=== PATIENT | male | born 1955 | race Caucasian/White ===

== ENCOUNTER 2024-08-18 10:25 | Outpatient (AMB) | payer MEDICARE, SELFPAY ==
--- NOTE | 2024-08-18 10:33 | MHC.PC.OV ---
Vital Signs 08/18/24 10:37 08/18/24 10:41 Height 5 ft 2.6 in Weight 97 lb 6 oz BMI 17.5 BP 124/76 Blood Pressure Location Lt brachial Position Sitting Pulse 44 L 63 Pulse Source Pulse Oximeter Palpation Temp 96.8 F Temp Source Skin Pulse Oximetry (%) 94 Oxygen Delivery Method Room Air Intake Visit Reasons: establish care, MED review Intake Note: Patient is a new patient here to establish care for enlarged heart. Transferring care from [facility]. Medical records have not been requested and have not received. Financial Compliance Examiner Required: No [employer]: Present Accompanied by: Daughter Allergies Sulfa (Sulfonamide Antibiotics) [SULFA (SULFONAMIDE ANTIBIOTICS)] Allergy (Intermediate, Verified 08/18/24 22:52) RASH codeine [CODEINE] Adverse Reaction (Mild, Verified 08/18/24 22:52) Vomiting Medication List - Last Reconciled 08/18/24 by EL Ramos No Known Home Meds Tobacco use date assessed: 08/18/24 Fall risk assessment: No Falls in past year Last assessed Fall Risk: 08/18/24 Dental Screening Dental Screen Date: 08/18/24 Did you have a dental visit in the last 12 months?: No Did you have a dental problem in the last 6 months where you did not have access to dental care?: No Was dental information given to patient?: No HPI establish care, MED review HPI Details Previous PCP: Cannot remember the name Last visit: years ago Last PE: years ago Specialist:n/a OBGYN:n/a Past medical history: cardiomegaly, kidney stones frequency-but none in a while Medications: rescue inhaler, Family HX: father prostate ca, DM 2 and HTN, passed at 95 y/o, Mother with Alzheimer lewy body dementia, sister had skin ca. Problem: The patient is a 69-year-old male who was presenting to establish care Patient reports that he was told that he had an enlarged heart at [facility] After going in for pneumonia and massive diarrhea. He reports that at the time his WBC was 1.6 or 1.9 in his potassium was low as well Reports that there was concern off him having possible emphysema vs COPD Reports that he has smoked for 50 years 1 pack a day but stopped smoking after being discharged from the hospital Reports that he currently has a visiting nurse that comes in and check on his breathing Patient reports that he was prescribed an rescue inhaler but he does not need it He reports mild dizziness intermittently. The patient reports that he does not like water in drinks mostly coffee He denies alcohol use Heart rate noted to be irregular. EKG completed that showed sinus arrhythmias [facility] Surgical History History of hernia surgery Social History Housing: House Alcohol intake: never Patient Tobacco Use Status: Former Tobacco user e-Cigarette/Vaping Use: Never Used Second Hand Smoke Exposure: Yes service: No Current occupational status: retired Cognitive needs: No Hearing needs: No Vision needs: Yes (Glasses) Questionnaire PHQ-9 Over the last 2 weeks, how often have you been bothered by any of the following problems? 1. Little interest or pleasure in doing things: not at all 2. Feeling down, depressed, or hopeless: not at all 3. Trouble falling or staying asleep, or sleeping too much: not at all 4. Feeling tired or having little energy: not at all 5. Poor appetite or overeating: not at all 6. Feeling bad about yourself - or that you are a failure or have let yourself or your family down: not at all 7. Trouble concentrating on things, such as reading the newspaper or watching television: not at all 8. Moving or speaking so slowly that other people could have noticed. Or the opposite - being so fidgety or restless that you have been moving around a lot more than usual: not at all 9. Thoughts that you would be better off or of hurting yourself in some way: not at all Total score: 0 Depression Screening Interpretation: Negative Depression Screening Done: Yes 81801 - PHQ-9 Billing: Yes Source: Developed by Drs. Floyd Wan, Marichuy Dee, Bhavin Roca and colleagues, with an educational irene from [employer] Thrive Questionnaire Date Thrive assessed: 08/18/24 I am a: Patient What is your living situation today?: I have a steady place to live Within the past 12 months, did the food you bought not last and you didn't have the money to get more?: Often true Within the past 12 months, did you worry whether your food would run out before you got money to buy more?: Often true Do you have trouble paying for medicines?: No Do you have trouble getting transportation to medical appointments?: No Do you have trouble paying your heating and electricity bill?: No Do you have trouble taking care of your child, family member or friend?: No Do you have trouble with day-to-day activities such as bathing, preparing meals, shopping, managing finances, etc.?: No Are you currently unemployed and looking for a job?: No Are you interested in more education?: No Please select the resources that you would like help with: None Currently or been in a relationship where the following occur: I choose not to answer THRIVE Score: 2 AUDIT C Alcohol Use Questionnaire (AUDIT-C) 1. How often do you have a drink containing alcohol?: Never Total Score: 0 Score Reviewed/Action Taken: Yes MATEO-7 AMB Questionnaire MATEO-7 Date MATEO - 7 assessed: 08/18/24 Feeling nervous, anxious, or on edge: 0 = Not at all Not being able to stop or control worryin = Not at all Worrying too much about different things: 0 = Not at all Trouble relaxin = Not at all Being so restless that it is hard to sit still: 0 = Not at all Becoming easily annoyed or irritable: 0 = Not at all Feeling afraid as if something awful might happen: 0 = Not at all Total MATEO-7 score (0-4 normal; 5-9 mild; 10-14 moderate; 15-21 severe): 0 Source: Developed by Drs. Floyd Wan, Marichuy Dee, Bhavin Roca and colleagues, with an educational irene from [employer] MATEO-7 Assessment Billing MATEO-7 Assessment Tool: MATEO-7 Assessment 07501 Review of Systems Const Details: Denies chills, Denies fatigue, Denies fever(s), Denies headache(s) and Denies weakness HEENT Denies change in vision, intermittent mild dizziness, Denies headache(s), Denies hearing loss, Denies nasal congestion, Denies sinus pain, Denies sinus pressure and Denies sore throat Card Denies chest pain, Denies lightheadedness, Denies dyspnea and Denies other (palpitations) Resp + recurrent cough, Denies dyspnea and Denies wheezing GI Denies abdominal pain, Denies melena, Denies hematochezia, Denies change in bowel habits, Denies dyspepsia and Denies nausea Denies hematuria and Denies dysuria Musc Denies abnormal gait, Denies myalgias, Denies arthralgias, Denies numbness and Denies tingling Skin/Breast Denies rash, Denies unusual bruising and Denies wounds Neuro Denies abnormal gait, Denies headache(s), Denies memory loss, Denies numbness, Denies Sensory deficit (Neuro), Denies tingling and Denies weakness Psych Denies anxiety, Denies depression and Denies memory loss Endo Denies cold intolerance, Denies fatigue, Denies heat intolerance, Denies polydipsia and Denies polyuria Kervin/Lymph Denies easy bleeding and Denies easy bruising Aller/Immun Denies wheezing Physical exam (Primary Care) Vital Signs: Last Vital Signs Temp 96.8 F 08/18/24 10:37 Pulse 63 08/18/24 10:41 BP 124/76 08/18/24 10:37 Pulse Ox 94 08/18/24 10:37 Oxygen Delivery Method Room Air 08/18/24 10:37 BMI result Body Mass Index 17.5 Tobacco/Smoking Status: Tobacco use Status Tobacco use date assessed 08/18/24 08/18/24 10:46 Patient Tobacco Use Status Former Tobacco user 08/18/24 10:46 e-Cigarette/Vaping Use Never Used 08/18/24 10:46 PHQ-9: PHQ-9 Score PHQ-9: Total score 0 08/18/24 23:30 Depression Screening Interpretation: Negative Thrive Assessment: Date of Thrive Assessment Date Thrive assessed 08/18/24 08/18/24 10:34 Currently or been in a relationship where the following occur: I choose not to answer Const Other: General: no acute distress, well developed, alert and awake Nutritional Appearance: well nourished Orientation/consciousness: patient oriented x3 HENMT Head: Yes normocephalic and Yes atraumatic Ears: hearing grossly normal bilaterally and TM's normal bilaterally General nose exam: Normal external nose present and Normal nares present Mouth: Normal oral and palatal mucosa present and moist mucous membranes Teeth and gingiva: dentition normal Throat: Yes oropharynx normal Eyes Pupils: Equal, round and reactive pupils present and Pupil accommodation reflex normal EOM: EOMs intact bilaterally Neck Neck: Yes normal visual inspection, Yes no lymphadenopathy and Yes trachea midline Thyroid: Thyroid normal Carotids: no bruits Lymphatic: no lymphadenopathy noted Chest Chest palpation & inspection: normal inspection of the chest Resp Effort & Inspection: normal respiratory effort Auscultation: Inspiratory expiratory wheezing throughout bilaterally Cardio Rate: regular rate Rhythm: Irregular rhythm Heart sounds: S1 normal heart sound present, S2 normal heart sound present, no gallops, no murmurs and no rubs GI Palpation (GI): No Abdominal aortic bruit present, Soft to palpation, nontender, No hepatosplenomegaly present and No Rebound tenderness present Auscultation: normal bowel sounds General: Yes no CVA tenderness Back/Spine/Pelvis Back: no CVA tenderness Cervical Spine: cervical ROM normal and No Cervical spine tenderness Thoracic/Lumbar Spine: thoraco-lumbar ROM normal, No pain with thoraco-lumbar ROM, No thoracic spinal tenderness and No lumbar spinal tenderness Skin General: warm and dry. Normal skin color. Normal skin turgor Lesions: no lesions Nails: normal Neuro General: patient oriented x3, gait normal Cranial nerves: Yes Equal, round and reactive pupils present Cognition (Neuro): normal cognition Gait exam (Neuro): Normal gait present Extrem General: Yes normal to inspection, No edema and No calf tenderness Psych Appearance: grossly normal Affect: normal affect Attitude: cooperative Thought process: Normal thought process present Office Procedures Flu Questionnaire Does the patient have a severe egg allergy?: No Does the patient have severe life threatening allergies?: No Does the patient have a fever or illness today?: No Has the patient ever had Guillain-Basin Syndrome?: No Has the patient ever had any past reaction to a flu shot?: No Immunizations Fluarix Triv [id number] (PF) 45 mcg (15 mcg x 3)/0.5 mL IM syringe Performing Provider: EL Ramos [facility] Administered by: Margareth Pradhan LPN on 08/18/24 10:59 Dose Route Admin Location Dispensed Lot Number Expiration Date [facility] [employer] 0.5 mL IM Right Deltoid 0.5 mL [id number] 01/18/25 [id number] [employer] VIS Given Date VIS Provided VIS Publication Date 08/18/24 Single Vaccine 21 Eligibility Eligibility Date Funding Source Not [facility] Eligible 08/18/24 Private Coding Level of Care Code New Pt Level 4 (25382) Diagnoses Irregular heart rhythm I49.9 Cardiomegaly I51.7 Pulmonary emphysema, unspecified emphysema type J43.9 Emphysema type: unspecified Chronic obstructive pulmonary disease, unspecified COPD type J44.9 COPD type: unspecified COPD Cough, unspecified type R05.9 Cough type: unspecified Additional Codes MATEO-7 Assessment Billing - MATEO-7 Assessment Tool: MATEO-7 Assessment 03693 ([id number]) PHQ-9 - 74539 - PHQ-9 Billing: Yes ([id number]) Time Spent (min) 35 Assessment & Plan Assessment & Plan (1) Irregular heart rhythm: Code(s): I49.9 - Cardiac arrhythmia, unspecified Category: Medical Plan: Irregular heart rhythm palpated and EKG was done, which showed sinus arrhythmia Labs ordered for patient to do it as soon as possible (2) Cardiomegaly: Code(s): I51.7 - Cardiomegaly Category: Medical Plan: Patient reported that he was told that he had cardiomegaly at [facility] The patient verbalized that this might be normal for him because his father had cardiomegaly will request the patient discharge summary to evaluate (3) Emphysema lung: Code(s): J43.9 - Emphysema, unspecified Category: Medical Qualifiers: Emphysema type: unspecified Qualified Code(s): J43.9 - Emphysema, unspecified Plan: Unclear information: the patient was not sure, but he thought there was an concern about him having emphysema vs COPD He was send home with a rescue inhaler that he reports that he did not need so he has not been using it. The patient was noted to have inspiratory wheezes throughout the lung field without any dyspnea on exam The patient was encouraged to use his inhaler (4) COPD (chronic obstructive pulmonary disease): Code(s): J44.9 - Chronic obstructive pulmonary disease, unspecified Category: Medical Qualifiers: COPD type: unspecified COPD Qualified Code(s): J44.9 - Chronic obstructive pulmonary disease, unspecified Plan: same as above (5) Cough: Code(s): R05.9 - Cough, unspecified Category: Medical Qualifiers: Cough type: unspecified Qualified Code(s): R05.9 - Cough, unspecified Plan: The patient reports that he had this cough since leaving the hospital reports that he feels like he needs to cough something up but nothing is coming up Mucinex 600mg bid ordered Encouraged the patient to increased his fluids intake Plan The patient has not had a physical for years. Will order labs and schedule the patient to return for physical Orders: Orders Complete Blood Count Auto Diff 08/19/24 I49.9 - Cardiac arrhythmia, unspecified, Z00.00 - Encounter for general adult medical examination without abnormal findings Vitamin D 25-OH Total 08/19/24 I49.9 - Cardiac arrhythmia, unspecified, Z00.00 - Encounter for general adult medical examination without abnormal findings Glucose Fasting 08/19/24 I49.9 - Cardiac arrhythmia, unspecified, Z00.00 - Encounter for general adult medical examination without abnormal findings PSA,Total (Free>4and<10) 08/19/24 I49.9 - Cardiac arrhythmia, unspecified, Z00.00 - Encounter for general adult medical examination without abnormal findings Influenza [id number] Immunization 08/18/24 Z23 - Encounter for immunization Comprehensive [place]. Panel Fast 08/19/24 I49.9 - Cardiac arrhythmia, unspecified, Z00.00 - Encounter for general adult medical examination without abnormal findings Lipid Panel 08/19/24 I49.9 - Cardiac arrhythmia, unspecified, Z00.00 - Encounter for general adult medical examination without abnormal findings UA CC w/rflx Micro + Cult 08/19/24 I49.9 - Cardiac arrhythmia, unspecified, Z00.00 - Encounter for general adult medical examination without abnormal findings TSH reflex Free T4 08/19/24 I49.9 - Cardiac arrhythmia, unspecified, Z00.00 - Encounter for general adult medical examination without abnormal findings Medications: New guaifenesin ER (Mucinex) 600 mg PO BID 60 tabs 0RF
[2024-08-18 10:37] VITALS: BP 124/76; PULSE 44; TEMP 36; O2SAT 94; BMI 17.5
[2024-08-18 10:41] VITALS: PULSE 63
--- OUTSIDE RECORDS SUMMARY | 2024-08-18 11:20 | XMS_ITS | Encounter Summary ---
Author Organization [facility] Address [address] [place] [address] Care Team Providers Care Tie Layer Name Role Phone Marek Sullivan MD Primary Care Provider + [phone] Reason for Visit * Reason Comments Shortness of Breath Sob increasing over few days * Auth/Cert (Routine) Specialty Diagnoses / Procedures Referred By Contac t Referred To Contact Diagnoses SOB (shortness of breath) Procedures [id number] Pino Apple MD [address] [place] [address] [facility] Emergency [address] [place] [address] Referral ID Status Reason Start Date Expiration Date Visits Re quested Visits Authorized [id number] 1 1 Encounter Details Date Type Department Care Team (Latest Contact Info) Description 07/18/2024 8:24 PM EST - 07/21/2024 4:09 PM [facility] Hospital Encounter [facility] [address] [place] [address] Karyna Garza DO [address] [place] [address] Pino Apple MD [address] [place] [id number] Georgina Figueredo MD [address] [place] [phone] Juan A Garay MD [address] [place] [address], [place] [id number] Robin Soto MD [address] [place] [address] Dyspnea, unspecified type (Primary Dx); Pneumonia of right middle lobe due to infectious organism; Hypokalemia Discharge Disposition: Home or Self Care Social History Tobacco Use Types Packs/Day Years Used Date Smoking Tobacco: Every Day Cigarettes Smokeless Tobacco: Never Tobacco Cessation:Ready to Q uit: Not Asked; Counseling Given: Not Answered Interpersonal Safety Answer Date Record ed Physical Abuse 07/19/2024 Verbal Abuse 07/19/2024 Sex and Gender Information Value Date Recorded Sex Assigned at Male 07/18/2024 9:55 PM EST Gender Identity Male 07/18/2024 9:55 PM EST Sexual Orientation Straight 07/18/2024 9: 55 PM EST Job Start Date Occupation Industry Not on file Not on file Not on file documented as of this encounter Last Filed Vital Signs Vital Sign Reading Time Taken Comments Blood Pressure 121/68 07/21/2024 3:09 PM EST Pulse 96 07/21/2024 3:09 PM EST Temperature 37.2 ??C (98.9 ??F) 07/21/2024 3 :09 PM EST Respiratory Rate 17 07/21/2024 3:09 PM EST Oxygen Saturation 95% 07/21/2024 3:0 9 PM EST Inhaled Oxygen Concentration - - Weight 44.5 kg (98 lb) 07/20/2024 3:28 PM EST per epic record Height 162.6 cm (5' 4 ) 07/19/2024 8:52 PM EST Body Mass Index 16.82 07/19/2024 8:52 PM EST documented in this encounter Medications at Time of Discharge Medication Sig Dispensed Refills Start Date End Date dextromethorphan-guaiF ENesin (ROBITUSSIN-DM) 10-100 mg/5 mL syrup Take 10 mL by mouth every 4 (four) hours if needed for cough. 240 mL 07/21/2024 nicotine (NICODERM CQ) 7 mg/[address] 1 patch on the skin 1 (one) time each day for 14 days. 14 each 07/22/2024 albuterol HFA (ProAir HFA) 90 mcg/actuation inhaler Inhale 2 puffs by mouth every 4 (four) hours if needed for wheezing or shortness of breath. 8.5 g 07/21/2024 07/21/2025 doxycycline (VIBRAMYCIN) 100 mg capsule Take 1 capsule (100 mg total) by mouth 2 (two) times a day for 5 days. Take with at least 8 ounces (large glass) of water, do not lie down for 30 minutes after 10 each 07/21/2024 07/26/2024 levoFLOXacin (LEVAQUIN) 750 mg tablet Take 1 tablet (750 mg total) by mouth 1 (one) time each day for 5 days. 5 each 07/21/2024 07/26/2024 potassium chloride (KLOR-CON M20) 20 mEq CR tablet Take 2 tablets (40 mEq total) by mouth 1 (one) time each day for 5 days. Tablet may be swallowed whole (do not crush/chew/suck on) OR broken in half and each half swallowed separately OR dissolved (whole tablet) in ~4 ounces of water (allow ~2 minutes to dissolve, stir well and administer immediately). 10 tablet 07/21/2024 07/26/2024 documented as of this encounter Ordered Prescriptions Prescription Sig Dispensed Refills Start Date End Da te albuterol HFA (ProAir HFA) 90 mcg/actuation inhaler Inhale 2 puffs by mouth every 4 (four) hours if needed for wheezing or shortness of breath. 8.5 g 07/21/2024 07/21/2025 nicotine (NICODERM CQ) 7 mg/[address] 1 patch on the skin 1 (one) time each day for 14 days. 14 each 07/22/2024 dextromethorphan-guaiFE Nesin (ROBITUSSIN-DM) 10-100 mg/5 mL syrup Take 10 mL by mouth every 4 (four) hours if needed for cough. 240 mL 07/21/2024 potassium chloride (KLOR-CON M20) 20 mEq CR tablet Take 2 tablets (40 mEq total) by mouth 1 (one) time each day for 5 days. Tablet may be swallowed whole (do not crush/chew/suck on) OR broken in half and each half swallowed separately OR dissolved (whole tablet) in ~4 ounces of water (allow ~2 minutes to dissolve, stir well and administer immediately). 10 tablet 07/21/2024 07/26/2024 levoFLOXacin (LEVAQUIN) 750 mg tablet Take 1 tablet (750 mg total) by mouth 1 (one) time each day for 5 days. 5 each 07/21/2024 07/26/2024 doxycycline (VIBRAMYCIN) 100 mg capsule Take 1 capsule (100 mg total) by mouth 2 (two) times a day for 5 days. Take with at least 8 ounces (large glass) of water, do not lie down for 30 minutes after 10 each 07/21/2024 07/26/2024 documented in this encounter Discharge Disposition Disposition Code Departure Means Destination Comment s Home or Self Care Car documented in this encounter Progress Notes * Laura Ghotra RN - 07/21/2024 4:05 PM EST Discharge instructions reviewed and patient verbalizes understanding. * Elana Rodrigues - 07/21/2024 2:23 PM EST Patient ambulated briskley without increased WOB and/or SOB. Patient started out on room air at rest with HR 99, SPO2 95%. Patient ambulated a total of 80ft without assistance for 12 min. After 5 minambulating HR 117, SPO2 90%. After 8 min ambulating HR 118, SPO2 88%,. After 12 min ambulating HR123, SPO2 89%. Patient does not qualify for home supplemental oxygen. * Adelina Diana RN - 07/21/2024 4:52 AM EST Problem: Physical Regulation:Infection Management Goal: Signs and symptoms of infection will decrease Outcome: Progressing Goal: Complications related to the disease process, condition or treatment will be avoided or minimized Outcome: Progressing Goal: Diagnostic test results will improve Outcome: Progressing Identify possible barriers to meeting goals/advancing plan of care: IV ABX Stability of the patient: Moderately Stable - Low risk of patient condition declining or worsening End of Shift Summary: Patient alert and oriented overnight, no complaints of pain or discomforts. SB to the bathroom d/t length of oxygen tubing and IV pole. States he's breathing better and is able to get the congestion up. * Laura Ghotra RN - 07/20/2024 3:49 PM EST Problem: Physical Regulation:Infection Management Goal: Signs and symptoms of infection will decrease Outcome: Progressing Goal: Complications related to the disease process, condition or treatment will be avoided or minimized Outcome: Progressing Goal: Diagnostic test results will improve Outcome: Progressing Goals: wean supplemental o2 need Identify possible barriers to meeting goals/advancing plan of care: infection Stability of the patient: Moderately Stable - Low risk of patient condition declining or worsening End of Shift Summary: Patient alert oriented vss continues on iv abx for aspirational PNA family invisiting today. * Karissa Judge RN - 07/20/2024 3:25 PM EST 07/20/24 1524 Initial Transition Plan Initial Transition Plan Home Health Care Discharge Planning Living Arrangements Spouse/significant other Type of Residence Private residence ([facility]) Support Systems Spouse/significant other;Children Medication Coverage Has Med Coverage Under Insurance Plan Yes Medication Affordability No concerns related to payment for meds Anticipated Discharge Needs Home Health RN Informed Choice Informed Choice Given? Yes I met with patient, spouse and daughter Marcus with regards to d/c planning. Patient states that he has been independent with care prior to admit. Patient does not use any assistive devices to ambulate. Patient still drives. Patient would like VNA upon discharge. Referrals sent. * Adelina Diana RN - 07/20/2024 4:01 AM EST Problem: Physical Regulation:Infection Management Goal: Signs and symptoms of infection will decrease Outcome: Progressing Goal: Complications related to the disease process, condition or treatment will be avoided or minimized Outcome: Progressing Goal: Diagnostic test results will improve Outcome: Progressing Identify possible barriers to meeting goals/advancing plan of care: IV ABX Stability of the patient: Moderately Stable - Low risk of patient condition declining or worsening End of Shift Summary: Patient alert and oriented. VSS, Neutropenic precautions for WBC 1.5, was Droplet precautions for Mycoplasma pneumo but PCR came back Negative. SB assist to bathroom, steady on feet. Daughter will be coming in to discuss results of CT scan. Daughter called last evening and requested her be first to be notified because mother (pt ) has history of TBI and she has a hard time remembering her own medical information. * Randi Leger RN - 07/19/2024 7:15 PM EST ED RN HANDOFF (All Chinchilla Below Must Be Completed) Reason/Diagnosis for Admission: Type of Admission: [x] Medsurg, [] Telemetry Already in a Hospital Bed: [x] Yes / [] No Room Considerations/Precautions (ex: fever, diarrhea, or any infectious concerns): [x] Yes / [] No *Neutropenic precautions Putty Mixer And Applier: [] Yes / [x] No If YES, Cardiac Rhythm: [] NSR, [] SB, [] ST, [] A-FIB, [] A-Flutter, [] Pacemaker, [] 1st Degree HB, [] 2nd Degree HB, [] 3rd Degree HB Reason for Putty Mixer And Applier: VS: Visit Vitals BP 98/52 (BP Location: Left arm, Patient Position: Lying) Pulse 98 Temp 37.7 ??C (99.9 ??F) Resp (!) 28 Ht 1.626 m (64 ) Wt (!) 45.4 kg (100 lb) SpO2 96% BMI 17.16 kg/m?? Smoking Status Every Day BSA 1.46 m?? Current Mental Status: A/O x [x]4, []3, []2, []1 Current Ambulation Status: IV Access: [x] Yes / [] No Field IV present: [] Yes / [x] No Hx of Violence: [] Yes / [x] No / [] Unknown Fall Risk:[] Yes / [] No Yellow Bracelet Applied [] Yes / [] No Yellow Socks Applied [] Yes / [] No Patient Belongings inventoried and BL completed: [x] Yes / [] No Patient belongings stored in the security closet: [] Yes (If Yes please supply Security bag #): [x] No Patient Medications stored in Pharmacy: [] Yes (If Yes please supply Medication Security bag #): [x] No ED Summary of Care: SOB and pneumonia in right lung/ N/V/D for 1 week. 94% 4l nc. Ambulatory with one assist to bedside commode. Submitted by and Phone Extension: Randi Leger RN * Randi Leger RN - 07/19/2024 3:04 PM EST Pt ambulatory to bedside commode to move bowels. Some diarrhea noted. Pt then placed in hospital bed for comfort. Callbell within reach * Randi Leger RN - 07/19/2024 12:36 PM EST Pt reports increasing SOB. Neb treatment started per order. * BRAD Thomas - 07/19/2024 11:23 AM EST Images from the original note were not included. AMANDEEP PROGRESS NOTE Date: 07/19/2024 Author: BRAD Thomas Patient ID: Jai Martinez is a 68 y.o. male : 1955 MR#: [id number] SUBJECTIVE Subjective Patient reports that he started to feel ill about a week ago. He reports since time of admission overnight his chest pain has improved. He is coughing with phlegm production but does not know what color it is. He denies any recent hemoptysis or weight loss. He denies any fevers, chills, night sweats. Appetite is poor. He has experienced recent diarrhea. He denies dysuria or abdominal pain. Patient tells me he smokes 5 unfiltered cigarettes on a daily basis but used to smoke multiple packs per day. 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 Patient does not typically seek medical care. Patient has been in respiratory distress overnight with respiratory rates as high as the 30s. Allergies Sulfa (sulfonamide antibiotics) Current Medications: enoxaparin, 40 mg, subcutaneous, Daily levoFLOXacin, 750 mg, intravenous, q48h sodium chloride, 75 mL/hr, Last Rate: 75 mL/hr (07/19/24 0856) PRN medications: acetaminophen, dextromethorphan-guaiFENesin, ipratropium-albuteroL OBJECTIVE Vitals: 07/19/24 0220 07/19/24 0653 07/19/24 0859 07/19/24 1100 BP: 111/62 117/51 (!) 124/48 BP Location: Right arm Left arm Left arm Patient Position: Sitting Lying Sitting Pulse: (!) 119 110 (!) 114 (!) 114 Resp: 22 24 22 (!) 34 Temp: 37.6 ??C (99.7 ??F) 36.9 ??C (98.5 ??F) 37.7 ??C (99.9 ??F) TempSrc: Oral Oral SpO2: 96% 94% 95% 95% Weight: Height: Physical Exam Constitutional: Appearance: He is cachectic. HENT: Head: Normocephalic and atraumatic. Mouth/Throat: Mouth: Mucous membranes are moist. Eyes: Extraocular Movements: Extraocular movements intact. Conjunctiva/sclera: Conjunctivae normal. Pupils: Pupils are equal, round, and reactive to light. Cardiovascular: Rate and Rhythm: Normal rate and regular rhythm. Pulmonary: Effort: Pulmonary effort is normal. Breath sounds: Normal breath sounds. No wheezing, rhonchi or rales. Comments: Diminished breath sounds Abdominal: General: Bowel sounds are normal. There is no distension. Palpations: Abdomen is soft. There is no mass. Tenderness: There is no abdominal tenderness. There is no rebound. Musculoskeletal: General: Normal range of motion. Cervical back: Normal range of motion. Skin: General: Skin is warm and dry. Neurological: General: No focal deficit present. Mental Status: He is alert and oriented to person, place, and time. Psychiatric: Mood and Affect: Mood normal. Behavior: Behavior is cooperative. LABS HEMATOLOGY Lab Results Component Value Date WBC 1.5 (LL) 07/19/2024 HGB 14.3 07/19/2024 HCT 41.0 (L) 07/19/2024 MCV 93.8 07/19/2024 PLT 173 07/19/2024 CHEMISTRY Lab Results Component Value Date GLUCOSE 61 (L) 07/19/2024 NA 132 (L) 07/19/2024 K 3.3 (L) 07/19/2024 CO2 25 07/19/2024 CL 100 07/19/2024 BUN 21 07/19/2024 CREATININE 0.79 07/19/2024 EGFR 97 07/19/2024 CALCIUM 8.8 07/19/2024 MG 1.6 (L) 07/19/2024 ANIONGAP 7 07/19/2024 Imaging: XR Chest 1 View Narrative: EXAMINATION: Chest portable upright 2120 hours. CLINICAL INDICATION: SOB. COMPARISON: None. FINDINGS: Lungs are hyperexpanded with dense consolidation right midlung. The left lung is clear. No gross bony abnormality seen. Impression: Right midlung consolidation. -------- FINAL REPORT -------- Dictated By: Barry Arellano Dictated Date: 07/19/2024 07:23 ET Assigned Physician: Barry Arellano Reviewed and Electronically Signed By: Barry Arellano Signed Date: 07/19/2024 07:24 ET Workstation ID: [id number] Transcribed By: Self Edit Transcribed Date: 07/19/2024 07:23 ET ASSESSMENT & PLAN This is a 68-year-old gentleman with a history of tobacco dependence who has not seen a primary care physician in quite some time admitted with acute respiratory distress secondary to right sided community-acquired pneumonia. Respiratory distress: Patient quite tachypneic with respiratory rates in the 30s overnight periods with supplemental oxygen and treatment patient appears more comfortable this morning. Clear if the patient is having acutehypoxic respiratory failure as no low sats are documented however he is on 4 L of nasal cannula. Concerning is patient's overall cachectic appearance and longstanding history of tobacco dependence. Iwill obtain a dry CT of the chest to further evaluate the right lung consolidation. Adjust antibiotics to avoid fluoroquinolones. Initiate Unasyn and doxycycline for now as there is also a question of aspiration due to the patient having significant vomiting prior to admission. Await mycoplasma antibodies. Full viral swab was negative. If patient can produce a sputum sample we will send this for culture as well. Tobacco dependence: NRT offered patient declines. Electrolyte abnormalities: Patient found to be hyponatremic and hypokalemic today also hypoglycemic. Suspect this is due to recent diarrhea/GI losses and poor oral intake in addition to the thoracic illness. Replenish potassium orally, low-flow IV fluids and follow electrolytes. Patient encouraged to try to eat something to improve the blood sugar. Leukopenia: Suspect this is due to the acute illness. Especially since Saenz bodies are present. Continue to trend. DAILY CARE CHECKLIST Length of Stay: VTE Prophylaxis: Lovenox Resuscitation: Full Code - Default PCP: Marek Sullivan MD Disposition/patient need hospital stay because : Acute respiratory distress due to community-acquired pneumonia Health care proxy with phone number : 45 minutes spent reviewing the medical record, evaluating the patient, coordinating care with ICC, RN and attending physician to facilitate today's plan in speaking to the patient's daughter at bedside. Associated attestation - Juan A Garay MD - 07/19/2024 3:22 PM EST This is a split/shared visit with BRAD Thomas. I personally performed the medical decision making (MDM) for the care of this patient on 07/19/24 as documented below Patient was discussed with advanced practitioner . I personally saw and examined the patient bedside. Chart was reviewed by me personally including relevant history, updates, labs, imaging. Agree with the documentation and plan as above except mentioned below. Patient who is chronic smoker presented to the hospital with shortness of breath, some diarrhea andgeneralized weakness. -Chest x-ray shows large right-sided consolidation. Currently treated with IV antibiotic Unasyn anddoxycycline with concern of aspiration (daughter who is RN here reported that patient had multiple episodes of vomiting around [place] and suspect aspiration). -With underlying risk factors and clinical picture CT scan chest ordered to look for possible malignancy. Juan A Garay MD 07/19/24 3:22 PM EST * Aleshia Jarvis RN - 07/19/2024 5:47 AM EST patient got up to use bedside commode with gear technician, RN entered room to answer call eddy - pt appeared short of breath upon exertion. gear technician assisted pt back into bed. RN took pt vitals at this time O2 sat 90%, titrated O2 to 3.5L. pt O2 improved to 95%. Pt HR in 120s. After a few minutes pt breathing appeared less labored pt stated he felt better. Aleshia Jarvis RN 07/19/24 4515 * Aleshia Jarvis RN - 07/19/2024 4:01 AM EST Contacts pt daughter marcus [phone] Ney [phone] Lisa [phone] Aleshia Jarvis RN 07/19/24 7048 * Lucinda Candelario RN - 07/18/2024 11:59 PM EST Pt denies pain at this time. Pt offered food and fluids. Pt does not want food at this time so given water. Pt on continuous pulse oximetry. SpO2 99% on 2L. Call light in reach. Plan of care ongoing. * Robbie Nevarez RN - 07/18/2024 8:11 PM EST Pt presents for worsening shortness of breath over last few days, cough, pain to right chest when he coughs. Pt appears pale, is ambulatory, a/ox3 * Karyna Garza DO - 07/18/2024 8:07 PM EST Emergency Medicine Note Patient Name: Jai Martinez Initial Evaluation: 07/18/2024 : 1955 Patient's PCP: No primary care provider on file. Emergency Physician: Karyna Garza DO History of Present Illness Chief Complaint: Chief Complaint Patient presents with Shortness of Breath Sob increasing over few days HPI: This a 68-year-old male presented hospital today for evaluation of shortness of breath from past couple days. Patient is complain of right-sided chest pain when he coughs. Patient has episode diarrhea as well. Denies any dark stool denies hematemesis hematemesis. Patient does not have any longhistory however he does smoke tobacco. Patient does complain of some nausea as well. Denies any fever. No cardiac history as in the past. ROS: I have performed a ROS with the pertinent positives and negatives documented in the history ofpresent illness. Previous History History reviewed. No pertinent past medical history. History reviewed. No pertinent surgical history. Social History Tobacco Use Smoking status: Every Day Types: Cigarettes Smokeless tobacco: Never No family history on file. is allergic to sulfa (sulfonamide antibiotics). No current facility-administered medications on file prior to encounter. No current outpatient medications on file prior to encounter. Physical Exam ED Triage Vitals [07/18/242013] Temp Heart Rate Resp BP 36.7 ??C (98.1 ??F) 96 20 -- SpO2 Temp src Heart Rate Source Patient Position 93 % -- -- -- BP Location FiO2 (%) -- -- General: Pleasant, no distress, interacting appropriately Head: Normacephalic, atraumatic ENT: oral mucosa moist, neck supple, no tracheal deviation Cardiovascular: Tachycardic rate, regular rhythm, no murmurs, rubbing, gallops Respiratory: Patient has rales on the right side of his lungs compared to the left side. No wheezing. Gastrointestinal: Soft, non distended, non tender, non guarding Extremities: No limb pain or swelling, no calf tenderness Neurological: Awake and alert, no facial droop noted Skin: Warm and dry Psychiatric: Appropriate mood and thoughts Results Labs Reviewed BASIC METABOLIC PANEL - Abnormal Result Value Sodium 130 (*) Potassium 3.9 Chloride 98 CO2 23 Anion Gap 9 Glucose 84 BUN 26 (*) Creatinine 1.06 eGFR 77 BUN/Creatinine Ratio 24.5 Calcium 8.6 B-TYPE NATRIURETIC PEPTIDE - Abnormal BNP 320 (*) CBC WITH AUTO DIFFERENTIAL - Abnormal WBC 2.5 (*) RBC 4.50 Hemoglobin 14.8 Hematocrit 42.5 MCV 93.6 MCH 32.6 (*) MCHC 34.8 RDW 12.6 Platelets 185 MPV 9.6 NRBC 0.0 NRBC Absolute 0.00 MANUAL DIFFERENTIAL - INSTRUMENT DIFFERENTIAL - Abnormal Neutrophils % 16.0 Bands % 26.0 Lymphocytes % 26.0 Reactive Lymphocyte 1.00 Monocytes % 3.0 Eosinophils % 0.0 Basophils % 0.0 Metamyelocytes % 25.0 (*) Myelocytes % 4.0 (*) Neutrophils Absolute Manual 0.40 (*) Bands Absolute Manual 0.65 (*) Lymphocytes Absolute 0.65 (*) Reactive Lymph Abs Manual 0.03 (*) Monocytes Absolute Manual 0.08 (*) Eosinophils Absolute Manual 0.00 Basophils Absolute Manual 0.00 Metamyelocytes Absolute Manual 0.63 (*) Myelocytes Absolute Manual 0.10 (*) Rbc Morphology Present (*) Platelet Morphology - WAM See Note (*) Schistocytes Present < 5% (*) Toxic Granules Present Present (*) Vacuolated Neutrophils Present Present (*) Dohle Body Present Present (*) TROPONIN I HIGH SENSITIVITY - Normal High Sensitivity Troponin I 16 Narrative: High levels of biotin in samples may falsely decrease hsTroponin values. Use caution when interpreting hsTroponin results in patients taking biotin who exhibit renal impairment (eGFR <60) or in patients taking more than 20 mg/day of biotin. LEGIONELLA ANTIGEN URINE, EIA CBC AND DIFFERENTIAL Narrative: The following orders were created for panel order CBC and differential. Procedure Abnormality Status --------- ------ CBC auto differential[[id number]] Abnormal Final result Please view results for these tests on the individual orders. TROPONIN I HIGH SENSITIVITY STREPTOCOCCUS PNEUMONIAE ANTIBODIES, IGG, 23 SEROTYPES MYCOPLASMA PNEUMONIAE ANTIBODY IGM Abnormal Labs Reviewed BASIC METABOLIC PANEL - Abnormal; Notable for the following components: Result Value Sodium 130 (*) BUN 26 (*) All other components within normal limits B-TYPE NATRIURETIC PEPTIDE - Abnormal; Notable for the following components: BNP 320 (*) All other components within normal limits CBC WITH AUTO DIFFERENTIAL - Abnormal; Notable for the following components: WBC 2.5 (*) MCH 32.6 (*) All other components within normal limits MANUAL DIFFERENTIAL - INSTRUMENT DIFFERENTIAL - Abnormal; Notable for the following components: Metamyelocytes % 25.0 (*) Myelocytes % 4.0 (*) Neutrophils Absolute Manual 0.40 (*) Bands Absolute Manual 0.65 (*) Lymphocytes Absolute 0.65 (*) Reactive Lymph Abs Manual 0.03 (*) Monocytes Absolute Manual 0.08 (*) Metamyelocytes Absolute Manual 0.63 (*) Myelocytes Absolute Manual 0.10 (*) Rbc Morphology Present (*) Platelet Morphology - WAM See Note (*) Schistocytes Present < 5% (*) Toxic Granules Present Present (*) Vacuolated Neutrophils Present Present (*) Dohle Body Present Present (*) All other components within normal limits XR Chest 1 View (Results Pending) I have discussed the incidental/abnormal imaging and/or lab abnormalities with the patient and haveinstructed them the need for further evaluation and workup with their primary care doctor. I have provided the patient with a paper copy of the abnormality. The laboratory results, imaging results and other diagnostic exam results were reviewed in the EMR. EKG Interpretation Critical Care Time None ? Medical Decision Making Medications acetaminophen (TYLENOL) tablet 650 mg (has no administration in time range) ipratropium-albuteroL (DUONEB) 0.5-2.5 mg/3 mL nebulizer solution 3 mL (3 mL nebulization Given 07/18/242047) sodium chloride 0.9 % bolus 1,000 mL (1,000 mL intravenous New Bag 07/18/242115) cefTRIAXone (ROCEPHIN) 2 g in sterile water 20 mL IV syringe (2 g intravenous Given 07/18/242143) azithromycin (ZITHROMAX) tablet 500 mg (500 mg oral Given 07/18/242142) ED Course as of 07/18/242153 Sat Jul 18, [id number] This a 68-year-old male presented ER today for couple days of shortness of breath with coughing. I suspect patient may have a pneumonia versus fluid or pulmonary edema. Due to this chest pain willobtain a screen EKG troponin be obtained as well. He does not have any chest pain on resting however this chest pain is worsening when he coughs. Patient does appear to be tachypneic on my exam. Patient is on 2 L nasal cannula for supplementation. Will plan to obtain a chest x-ray to evaluate his lungs. Basic lab work clued CBC BMP and BNP will be obtained as well. Will plan to give patient DuoNeb treatment to see if this will help with his shortness of breath. [TC] 2153 Patient does have slight hyponatremia 130, slight elevation in BNP at 320. No elevation in troponin he is asymptomatic of any ACS symptoms no chest pain at rest. Patient does have bands on CBC. Patient chest x-ray did show right middle lobe pneumonia. Ceftriaxone azithromycin to be given to the patient. Patient be admitted to the hospital. [TC] ED Course User Index [TC] Karyna Garza DO Clinical Impressions as of 07/18/242153 Dyspnea, unspecified type Pneumonia of right middle lobe due to infectious organism Procedures Procedures Diagnosis 1. Dyspnea, unspecified type CANCELED: CT Angio Chest wo and/or w Contrast CANCELED: CT Angio Chest wo and/or w Contrast 2. Pneumonia of right middle lobe due to infectious organism Disposition Admit to Inpatient ED Prescriptions None Physician Attestation Karyna Garza DO 07/18/242108 Karyna Garza DO 07/18/242153 documented in this encounter H&P Notes * Pino Apple MD - 07/18/2024 11:03 PM EST Admitting MD: Pino Apple MD PCP: Marek Sullivan MD Code Status: Full Code - Default HPI : Patient is a 68 y.o. male with past medical history of smoking and no other significant past medical history and does not take any medications at home coming into the hospital with chief complaint of cough which she described as dry, fever, chills and shortness of breath. He also had some right-sided chest pain for which she took 2 pills of aspirin at home. Patient's associated complaints include diarrhea. Patient came into the hospital for evaluation. Patient was vitally stable. Laboratory workup was unremarkable except slightly low WBC count and hyponatremia. Patient's chest x-ray showed concerns for pneumonia for which the patient is being admitted to the hospital. Past Medical History: Past Surgical History: History reviewed. No pertinent past medical history. History reviewed. No pertinent surgical history. Family History Social History: No family history on file. Social History Socioeconomic History Marital status: Spouse name: Not on file Number of children: Not on file Years of education: Not on file Highest education level: Not on file Occupational History Not on file Tobacco Use Smoking status: Every Day Types: Cigarettes Smokeless tobacco: Never Substance and Sexual Activity Alcohol use: Not on file Drug use: Not on file Sexual activity: Not on file Other Topics Concern Not on file Social History Narrative Not on file Allergies: Allergies Allergen Reactions Sulfa (Sulfonamide Antibiotics) Medications: No current outpatient medications Review of Systems: Review of Systems A complete 14 point review of symptoms was done and is negative except as mentioned in the note above. Vitals: Vitals: 07/18/242013 Pulse: 96 Resp: 20 Temp: 36.7 ??C (98.1 ??F) SpO2: 93% Physical Exam: Constitutional: General: Not in acute distress. Appearance: Normal appearance. Not ill-appearing. HENT: Head: Normocephalic and atraumatic. Right Ear: External ear normal. Left Ear: External ear normal. Nose: Nose normal. Mouth: Mucous membranes are moist. Pharynx: Oropharynx is clear. Eyes: Extraocular Movements: Extraocular movements intact. Cardiovascular: Rate and Rhythm: Normal rate and regular rhythm. Pulses: Normal pulses. Heart sounds: Normal heart sounds. No murmur heard. No friction rub. No gallop. Pulmonary: Effort: Pulmonary effort is normal. No respiratory distress. Breath sounds: Slightly rrough breath sounds in the right lung. Abdominal: General: Abdomen is flat. There is no distension. Palpations: Abdomen is soft. There is no mass. Tenderness: There is no abdominal tenderness. Musculoskeletal: General: No swelling or deformity. Normal range of motion. Cervical back: Normal range of motion. Right lower leg: No edema. Left lower leg: No edema. Skin: General: Skin is warm and dry. Neurological: General: No focal deficit present. Mental Status: Alert and oriented to person, place, and time. Mental status is at baseline. Psychiatric: Mood and Affect: Mood normal. Behavior: Behavior normal. Labs: Labs Reviewed BASIC METABOLIC PANEL - Abnormal Result Value Sodium 130 (*) Potassium 3.9 Chloride 98 CO2 23 Anion Gap 9 Glucose 84 BUN 26 (*) Creatinine 1.06 eGFR 77 BUN/Creatinine Ratio 24.5 Calcium 8.6 B-TYPE NATRIURETIC PEPTIDE - Abnormal BNP 320 (*) CBC WITH AUTO DIFFERENTIAL - Abnormal WBC 2.5 (*) RBC 4.50 Hemoglobin 14.8 Hematocrit 42.5 MCV 93.6 MCH 32.6 (*) MCHC 34.8 RDW 12.6 Platelets 185 MPV 9.6 NRBC 0.0 NRBC Absolute 0.00 MANUAL DIFFERENTIAL - INSTRUMENT DIFFERENTIAL - Abnormal Neutrophils % 16.0 Bands % 26.0 Lymphocytes % 26.0 Reactive Lymphocyte 1.00 Monocytes % 3.0 Eosinophils % 0.0 Basophils % 0.0 Metamyelocytes % 25.0 (*) Myelocytes % 4.0 (*) Neutrophils Absolute Manual 0.40 (*) Bands Absolute Manual 0.65 (*) Lymphocytes Absolute 0.65 (*) Reactive Lymph Abs Manual 0.03 (*) Monocytes Absolute Manual 0.08 (*) Eosinophils Absolute Manual 0.00 Basophils Absolute Manual 0.00 Metamyelocytes Absolute Manual 0.63 (*) Myelocytes Absolute Manual 0.10 (*) Rbc Morphology Present (*) Platelet Morphology - WAM See Note (*) Schistocytes Present < 5% (*) Toxic Granules Present Present (*) Vacuolated Neutrophils Present Present (*) Dohle Body Present Present (*) TROPONIN I HIGH SENSITIVITY - Normal High Sensitivity Troponin I 16 Narrative: High levels of biotin in samples may falsely decrease hsTroponin values. Use caution when interpreting hsTroponin results in patients taking biotin who exhibit renal impairment (eGFR <60) or in patients taking more than 20 mg/day of biotin. TROPONIN I HIGH SENSITIVITY - Normal High Sensitivity Troponin I 15 Narrative: High levels of biotin in samples may falsely decrease hsTroponin values. Use caution when interpreting hsTroponin results in patients taking biotin who exhibit renal impairment (eGFR <60) or in patients taking more than 20 mg/day of biotin. LEGIONELLA ANTIGEN URINE, EIA CBC AND DIFFERENTIAL Narrative: The following orders were created for panel order CBC and differential. Procedure Abnormality Status --------- ------ CBC auto differential[[id number]] Abnormal Final result Please view results for these tests on the individual orders. Imaging: XR Chest 1 View (Results Pending) Problem List: Patient Active Problem List Diagnosis Date Noted Date Diagnosed SOB (shortness of breath) 07/18/2024 Assessment / Plan: 68-year-old male with past medical history of smoking being admitted to the hospital for right sided community-acquired pneumonia. Considering hyponatremia and diarrhea, appears to be atypical pneumonia. Considering atypical pneumonia, I will check for Legionella, mycoplasma. Will check respiratory panel. Will check strep pneumonia antigen. Will start the patient on levofloxacin for 7 days. DuoNeb for breathing as needed. Robitussin for cough. Tylenol for pain and fever. Regular diet. Check labs tomorrow. Pulse ox and vitals as per routine. Med Rec/Ambulation/BPCI: Medication reconciliation Completed: Yes Source of Medication Reconciliation: Patient Baseline Ambulation Status: no device Ulcer Prophylaxis: None. DVT Prophylaxis: Lovenox. Bowel Regimen: None. Lujan Catheter: None. Diet/Feeding: Regular diet. Analgesia: Tylenol. Telemetry: None. Fluids: None. Additional records from previous providers were reviewed in detail. Case was discussed with ED as well. I spent greater than 80 minutes caring for this patient today with greater than 50% of the timespent in direct [id number] care/counseling/coordination with medical staff services manager, consultants, and reviewingpatient chart. Pino Apple MD [facility] Hospital[facility], 7am-7pm Available thru tiger text After 7pm, please tiger text cross coverage 07/18/2024 11:08 PM EST documented in this encounter Consult Notes * Lotus De La Torre, OSCAR - 07/20/2024 3:35 PM ESTAssociated Order(s): IP CONSULT TO NUTRITION SERVICES 07/20/2024 @ 3:38 PM EST Nutrition Consult Note/Nutrition Assessment Reason for RD Intervention: Assessment Type: RN Consult Reason for Assessment: High MST Score Anthropometrics: Height: 162.6 cm (64 ) Weight: (!) 44.5 kg (98 lb) (per epic record) Weight Method: Actual BMI (Calculated): 16.8 BMI Class: Underweight UBW (lbs): 100 Recent Weight Change: (Pt is not aware of any recent weight change) Current Diet and Supplements: Dietary Orders (From admission, onward) Start Ordered 07/20/24 1500 Dietary nutrition supplements Three times daily (TID); [facility]; Standard Small Volume Continuous Question Answer Comment Frequency Three times daily (TID) Location [facility] Supplements Standard Small Volume 07/20/24 1459 07/18/24 2303 Adult diet [facility]; General; Regular (Order Panel) Diet effective now Question Answer Comment Location [facility] Diet Type (req) General General Diet Regular 07/18/24 2303 History of presenting illness: Patient is a 68 y.o. male admitted 07/18/2024 with SOB (shortness ofbreath). Food/Nutrition History: Self-selected diet(s) followed: Pt consumes peanut butter cups, hamburgers and meat pies, not many vegetables, lots of coffee with milk and a small amount of sugar. Denies food allergies. They previously had food stamps but no longer qualify. PT reports no food security issues but indicates food budget at times is tight. PO declined for 5-7 days prior to admisison, did eat a meat pie on July 15 but did not feel well afterward and intake began to decline then. Pt confirmed height and states usual weight has been 100lbs most of his life. 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 Aspiration suspected. Pt reports he is eating a bit more today. Food preferences reviewed, pt willing to try oral supplements. Potassium and magnesium noted, BG has been low, suspect very limited glycogen stores given BMI and poor oral intake. Nutrition-Related Lab Values: Results from last 7 days Lab Units 07/20/24 1110 07/20/24 0938 07/20/24 0606 07/19/24 0447 SODIUM mmol/L -- -- 135 132* POTASSIUM mmol/L -- -- 3.0* 3.3* MAGNESIUM mg/dL -- -- 1.8* 1.6* CHLORIDE mmol/L -- -- 104 100 CO2 mmol/L -- -- 25 25 BUN mg/dL -- -- 12 21 CREATININE mg/dL -- -- 0.55* 0.79 EGFR mL/min/1.73m2 -- -- 109 97 CALCIUM mg/dL -- -- 8.6 8.8 BILIRUBIN TOTAL mg/dL -- -- -- 0.3 ALK PHOS unit/L -- -- -- 29* ALT unit/L -- -- -- 17 AST unit/L -- -- -- 35 POCT GLUCOSE mg/dL 108* < > -- -- GLUCOSE mg/dL -- -- 40* 61* WBC AUTO K/mcL -- -- 12.1* 1.5* < > = values in this interval not displayed. Medications: ampicillin-sulbactam, 3 g, intravenous, q6h doxycycline, 100 mg, intravenous, q12h enoxaparin, 40 mg, subcutaneous, Daily guaiFENesin, 600 mg, oral, q12h DE levoFLOXacin, 750 mg, intravenous, q48h nicotine, 1 patch, transdermal, Daily PRN medications: acetaminophen, dextromethorphan-guaiFENesin, dextrose 50%, dextrose 50%, dextrose,dextrose, glucagon injection, ipratropium-albuteroL Food/Nutrition-Current Status: Intake Type: P.O. Current Diet Status: Appropriate Current Supplement Status: Other (Comment) (not yet ordered) Appetite: Other (Comment) (pt reports that it is improving,) Intake Amount (%): 25-50% Intake Assessment: Inadequate Main IVF: None Nutrition Focused Physical Findings: Overall Appearance: comfortable in bed, appears slender, occasional cough Digestive System (Mouth to Rectum): Appetite change, Other (Comment) (limited dentition) Nerves and Cognition: Alert, Oriented Skin: intact Fluid Accumulation/Edema: Other (Comment) (none observed) Loss of Fat Location: Orbital, Buccal, Triceps, Ribs Loss of Fat Amt-Orbital: Moderate Loss of Fat Amt-Buccal: Severe Loss of Fat Amt-Triceps: Moderate Loss of Fat Amt-Ribs: Moderate Loss of Muscle Location: Temples, Clavicle, Shoulders, Interosseous, Scapula, Thigh, Calf Loss of Muscle Amt-Temples: Moderate Loss of Muscle Amt-Clavicle: Moderate Loss of Muscle Amt-Shoulders: Moderate Loss of Muscle Amt-Inter Musc: Severe Loss of Muscle Amt-Scapula: Moderate Loss of Muscle Amt-Thigh: Severe Loss of Muscle Amt-Calf: Moderate Nutrition Diagnosis: Code Type: Severe-Acute (E43) Severe-Acute Criteria: Energy Intake <50%/5days, Moderate Body Fat Depletion, Moderate Muscle Mass Depletion Diagnosis: Malnutrition Etiology: Changes in taste and appetite or preference Symptoms: as evidenced by oral intake less than 50% of usual for 5 or more days, severe depletion of fat mass, (buccal), moderate depletion of fat mass (tricep, ribs, orbit), severe depletion of muscle mass (thigh, interosseous) and moderate depletion of muscle mass (calf, temporalis, clavicle, shoulder) Nutrition Interventions: Medical Food Supplement, Vitamin/Mineral Supplement (education: from nutrition care manual: high calorie, high protein recipes, underweight nutrition therapy) Medical Food Supplement(s): Ensure Compact (4oz) Ensure Compact (4oz) Frequency: TID -if pt consisently tolerating solids on follow up resume multivitamin (pt takes every other day at baseline, suggest daily). Goals: Patient will consume greater than or equal to 75% meals., Patient will consume ONS., and Maintain weight. Monitoring/Evaluation: Energy Intake, Food Intake, Medical Food Supp/Oral Nutrition Supp, Weight Follow Up: Nutrition Priority Level: Moderate Please consult nutrition if needed sooner. Nutritional Discharge Recommendations: Consider high protein high calorie recipes to support weight gain, refer to handouts provided. RD remains available and will continue to follow. Signature: Lotus De La Torre RD documented in this encounter Plan of Treatment Scheduled Orders Name Type Priority Associated Diagnoses Orde r Schedule Basic metabolic panel Lab Routine Hypokalemia Expected: 07/28/2024, Expires: 07/21/2025 CBC and differential Lab Routine Pneumonia of right middle lobe due to infectious organism Expected: 07/28/2024, Expires: 07/21/2025 documented as of this encounter Procedures Procedure Name Priority Date/Time Associated Diagnosis Comments HOME O2 EVAL (DESATURATION SCREEN) Routine 07/21/2024 12:37 PM EST POCT GLUCOSE BLOOD Routine 07/21/2024 11 :12 AM EST POCT GLUCOSE BLOOD Routine 07/21/2024 8: 30 AM EST POCT GLUCOSE BLOOD Routine 07/21/2024 8: 03 AM EST PROCALCITONIN Add-On 07/21/2024 7:40 AM EST CBC WITH AUTO DIFFERENTIAL Routine 07/21/2024 7:40 AM EST INSULIN, FASTING Routine 07/21/2024 7:40 AM EST C-PEPTIDE Routine 07/21/2024 7:40 AM EST CBC AND DIFFERENTIAL Routine 07/21/2024 7:40 AM EST MAGNESIUM Timed 07/21/2024 7:40 AM EST CORTISOL Routine 07/21/2024 7:40 AM EST HEPATIC FUNCTION PANEL Add-On 7:40 AM EST BASIC METABOLIC PANEL Routine 07/21/2024 7:40 AM EST POCT GLUCOSE BLOOD Routine 07/20/2024 8: 23 PM EST POCT GLUCOSE BLOOD Routine 07/20/2024 4: 47 PM EST POCT GLUCOSE BLOOD Routine 07/20/2024 3: 57 PM EST POCT GLUCOSE BLOOD Routine 07/20/2024 11 :10 AM EST POCT GLUCOSE BLOOD Routine 07/20/2024 9: 38 AM EST HIV 1, 2 ANTIBODY, P24 ANTIGEN WITH REFLEX TO DIFFERENTIATION Add-On 07/20/2024 6:06 AM EST MANUAL DIFFERENTIAL - SYSMEX WAM Routine 07/20/2024 6:06 AM EST CBC WITH AUTO DIFFERENTIAL Routine 07/20/2024 6:06 AM EST CBC AND DIFFERENTIAL Routine 07/20/2024 6:06 AM EST THYROID STIMULATING HORMONE Add-On 07/20/2024 6:06 AM EST MAGNESIUM Timed 07/20/2024 6:06 AM EST BASIC METABOLIC PANEL Routine 07/20/2024 6:06 AM EST PEP THERAPY Routine 07/19/2024 8:01 PM EST ECG 12-LEAD STAT 07/19/2024 1:17 PM EST PEP THERAPY Routine 07/19/2024 1:05 PM EST PEP THERAPY Routine 07/19/2024 1:05 PM EST PEP THERAPY Routine 07/19/2024 1:[address] CHEST WO CONTRAST Routine 07/19/2024 8:39 AM EST MANUAL DIFFERENTIAL - SYSMEX WAM Routine 07/19/2024 4:47 AM EST CBC WITH AUTO DIFFERENTIAL Routine 07/19/2024 4:47 AM EST MYCOPLASMA PNEUMONIAE ANTIBODY IGM Routine 07/19/2024 4:47 AM EST CBC AND DIFFERENTIAL Routine 07/19/2024 4:47 AM EST MAGNESIUM Routine 07/19/2024 4:47 AM EST HEPATIC FUNCTION PANEL STAT Add-on 4:47 AM EST BASIC METABOLIC PANEL Routine 07/19/2024 4:47 AM EST ECG ANNOTATED 07/19/2024 RESPIRATORY VIRUS PANEL MOLECULAR STUDY Routine 07/18/2024 11:54 PM EST LEGIONELLA ANTIGEN URINE, EIA Routine 07/18/2024 10:24 PM EST TROPONIN I HIGH SENSITIVITY STAT 07/18/2024 9:36 PM EST XR CHEST 1 VIEW STAT 07/18/2024 9:29 PM EST ECG 12-LEAD Routine 07/18/2024 9:25 PM EST TROPONIN I HIGH SENSITIVITY STAT 07/18/2024 8:38 PM EST MANUAL DIFFERENTIAL - SYSMEX WAM STAT 07/18/2024 8:38 PM EST CBC WITH AUTO DIFFERENTIAL STAT 07/18/2024 8:38 PM EST CBC AND DIFFERENTIAL STAT 07/18/2024 8:38 PM EST B-TYPE NATRIURETIC PEPTIDE STAT 07/18/2024 8:38 PM EST BASIC METABOLIC PANEL STAT 07/18/2024 8:38 PM EST ECG 12-LEAD STAT 07/18/2024 8:17 PM EST documented in this encounter Results * (ABNORMAL) POCT Glucose, blood (07/21/2024 11:12 AM EST) [facility] Glucose POCT 182(H) 70 - 100 mg/dL 07/21/2024 11:12 AM EST [facility] Blood Capillary blood specimen / Unknown 07/21/2024 11:12 AM EST 07/21/2024 11:13 AM EST Robin Soto MD LAB POINT OF CARE TE ST DOCKED DEVICE UNSOLICITED RESULTS Performing Organization Address [facility]/ZIP Co de Phone Number [facility] [address] [place] [address], [place] [phone] * (ABNORMAL) POCT Glucose, blood (07/21/2024 8:30 AM EST) Glucose POCT 104(H) 70 - 100 mg/dL 07/21/2024 8:30 AM EST [facility] Blood Capillary blood specimen / Unknown 07/21/2024 8:30 AM EST 07/21/2024 8:31 AM EST Robin Soto MD LAB POINT OF CARE TE ST DOCKED DEVICE UNSOLICITED RESULTS Performing Organization Address [facility] de Phone Number [facility] [address] [place] [address], [place] [phone] * (ABNORMAL) POCT Glucose, blood (07/21/2024 8:03 AM EST) Glucose POCT 66(L) 70 - 100 mg/dL 07/21/2024 8:04 AM EST [facility] Blood Capillary blood specimen / Unknown 07/21/2024 8:03 AM EST 07/21/2024 8:05 AM EST Robin Soto MD LAB POINT OF CARE TE ST DOCKED DEVICE UNSOLICITED RESULTS Performing Organization Address [facility]/ZIP Co de Phone Number [facility] [address] [place] [address], [place] [phone] * (ABNORMAL) Hepatic function panel (07/21/2024 7:40 AM EST) Total Protein 4.5(L) 6.0 - 8.0 g/dL LAB CHEMISTRY METHOD 07/21/2024 9:42 AM [facility] Albumin 2.1(L) 3.2 - 5.0 g/dL LAB CHEMISTRY METHOD 07/21/2024 9:42 AM [facility] Total Bilirubin 0.6 0.0 - 1.4 mg/dL LAB CHEMISTRY METHOD 07/21/2024 9:42 AM [facility] Comment:Results verified by repeat testing Bilirubin, Direct 0.1 0.0 - 0.3 mg/dL LAB CHEMISTRY METHOD 07/21/2024 9:42 AM [facility] Bilirubin, Indirect 0.5 0.0 - 1.1 mg/dL LAB CHEMISTRY METHOD 07/21/2024 9:42 AM [facility] ALT (SGPT) 19 10 - 60 unit/L LAB CHEMISTRY METHOD 07/21/2024 9:42 AM [facility] AST (SGOT) 32 10 - 42 unit/L LAB CHEMISTRY METHOD 07/21/2024 9:42 AM [facility] Alkaline Phosphatase 45 42 - 121 unit/L LAB CHEMISTRY METHOD 07/21/2024 9:42 AM [facility] Blood Venous blood specimen / Unknown Venipuncture / Unknown 07/21/2024 7:40 AM EST 07/21/2024 7:52 AM EST Dilan SALINAS LAB BLOOD ORDERAB LES [facility] [address] [place] [address], * (ABNORMAL) Procalcitonin (07/21/2024 7:40 AM EST) Procalcitonin 6.46(H) <=0.16 ng/mL LAB CHEMISTRY METHOD 07/21/2024 12:31 PM [facility] Blood Venous blood specimen / Unknown Venipuncture / Unknown 07/21/2024 7:40 AM EST 07/21/2024 7:52 AM EST Narrative [facility] - 07/21/2024 12:31 PM EST Procalcitonin > 2.00 ng/ml: Procalcitonin Levels above 2.00 ng/ml, on the first day of ICU admission represent a high risk for progression to severe sepsis and/or septic shock. Procalcitonin < 0.50 ng/ml: Procalcitonin levels below 0.50 ng/ml on the first day of ICU admission represent a low risk for progression to severe sepsis and/or septic shock. Concentrations <0.5 ng/mL do not exclude an infection, on account of local ized infections (without systemic signs) which can be associated with such low concentrations, or a systemic infection in its initial stages (<6 hours). Furthermore, increased procalcitonin can occur without infection. PCT concentrations between 0.5 and 2.0 ng/mL should be interpreted taking into account the patient's history. It is recommended to retest PCT within 6-24 hours if any concentrations <2.0 ng/mL are obtained. Dilan SALINAS LAB BLOOD ORDERAB LES [facility] [address] [place] [address], * (ABNORMAL) CBC auto differential (07/21/2024 7:40 AM EST) WBC 12.3(H) 4.8 - 10.8 K/mcL LAB HEMETOLOGY METHOD 07/21/2024 8:26 AM EST [facility] RBC 3.80(L) 4.50 - 5.50 M/mcL LAB HEMETOLOGY METHOD 07/21/2024 8:26 AM EST [facility] Hemoglobin 12.4(L) 13.5 - 17.5 g/dL LAB HEMETOLOGY METHOD 07/21/2024 8:26 AM EST [facility] Hematocrit 36.2(L) 42.0 - 54.0 % LAB HEMETOLOGY METHOD 07/21/2024 8:26 AM [facility] MCV 95.3 79.0 - 98.0 FL LAB HEMETOLOGY METHOD 07/21/2024 8:26 AM [facility] MCH 32.6(H) 27.0 - 32.0 pcg LAB HEMETOLOGY METHOD 07/21/2024 8:26 AM [facility] MCHC 34.3 32.0 - 37.0 g/dL LAB HEMETOLOGY METHOD 07/21/2024 8:26 AM [facility] RDW 13.0 11.0 - 15.0 % LAB HEMETOLOGY METHOD 07/21/2024 8:26 AM [facility] Platelets 118(L) 130 - 400 K/mcL LAB HEMETOLOGY METHOD 07/21/2024 8:26 AM [facility] MPV 10.7 7.0 - 11.0 FL LAB HEMETOLOGY METHOD 07/21/2024 8:26 AM [facility] NRBC 0.0 <1.0 % LAB HEMETOLOGY METHOD 07/21/2024 8:26 AM [facility] NRBC Absolute 0.00 <0.10 K/mcL LAB HEMETOLOGY METHOD 07/21/2024 8:26 AM [facility] Neutrophils Relative 87.2 % LAB HEMETOLOGY METHOD 07/21/2024 8:26 AM [facility] Lymphocytes Relative 6.4 % LAB HEMETOLOGY METHOD 07/21/2024 8:26 AM [facility] Monocytes Relative 5.0 % LAB HEMETOLOGY METHOD 07/21/2024 8:26 AM [facility] Eosinophils Relative 0.3 % LAB HEMETOLOGY METHOD 07/21/2024 8:26 AM [facility] Basophils Relative 0.2 % LAB HEMETOLOGY METHOD 07/21/2024 8:26 AM EST [facility] Immature Granulocytes Relative 0.9 % LAB HEMETOLOGY METHOD 07/21/2024 8:26 AM EST [facility] Neutrophils Absolute 10.74(H) 1.50 - 7.00 K/mcL LAB HEMETOLOGY METHOD 07/21/2024 8:26 AM EST [facility] Lymphocytes Absolute 0.79(L) 1.00 - 5.00 K/mcL LAB HEMETOLOGY METHOD 07/21/2024 8:26 AM EST [facility] Monocytes Absolute 0.61 0.20 - 1.00 K/mcL LAB HEMETOLOGY METHOD 07/21/2024 8:26 AM [facility] Eosinophils Absolute 0.04 0.00 - 0.50 K/mcL LAB HEMETOLOGY METHOD 07/21/2024 8:26 AM EST [facility] Basophils Absolute 0.03 0.00 - 0.20 K/mcL LAB HEMETOLOGY METHOD 07/21/2024 8:26 AM [facility] Immature Granulocytes Absolute 0.11(H) 0.00 - 0.03 K/mcL LAB HEMETOLOGY METHOD 07/21/2024 8:26 AM [facility] Blood Venous blood specimen / Unknown Venipuncture / Unknown 07/21/2024 7:40 AM EST 07/21/2024 7:52 AM EST Cherry SALINAS LAB BLOOD ORDERABL ES [facility]) [facility] [address] [place] [address], * (ABNORMAL) Magnesium (07/21/2024 7:40 AM EST) Magnesium 1.6(L) 1.9 - 2.6 mg/dL LAB CHEMISTRY METHOD 07/21/2024 8:29 AM EST [facility] Blood Venous blood specimen / Unknown Venipuncture / Unknown 07/21/2024 7:40 AM EST 07/21/2024 7:52 AM EST Cherry SALINAS LAB BLOOD ORDERABL ES [facility] [address] [place] [address], * (ABNORMAL) Basic metabolic panel (07/21/2024 7:40 AM EST) Sodium 139 133 - 145 mmol/L LAB CHEMISTRY METHOD 07/21/2024 8:29 AM [facility] Potassium 3.2(L) 3.5 - 5.5 mmol/L LAB CHEMISTRY METHOD 07/21/2024 8:29 AM [facility] Chloride 104 96 - 110 mmol/L LAB CHEMISTRY METHOD 07/21/2024 8:29 AM [facility] CO2 28 21 - 32 mmol/L LAB CHEMISTRY METHOD 07/21/2024 8:29 AM [facility] Anion Gap 7 3 - 11 LAB CHEMISTRY METHOD 07/21/2024 8:29 AM [facility] Glucose 63(L) 70 - 100 mg/dL LAB CHEMISTRY METHOD 07/21/2024 8:29 AM [facility] BUN 11 5 - 25 mg/dL LAB CHEMISTRY METHOD 07/21/2024 8:29 AM [facility] Creatinine 0.45(L) 0.70 - 1.30 mg/dL LAB CHEMISTRY METHOD 07/21/2024 8:29 AM [facility] eGFR 115 >=60 mL/min/1. 73m2 LAB CHEMISTRY METHOD 07/21/2024 8:29 AM [facility] Comment:Calculation based on the??Chronic Kidney Disease Epidemiology Collaboration (CKD-EPI) equation refit??without adjustment for race. BUN/Creatinine Ratio 24.4 LAB CHEMISTRY METHOD 07/21/2024 8:29 AM EST [facility] Calcium 8.4(L) 8.5 - 10.5 mg/dL LAB CHEMISTRY METHOD 07/21/2024 8:29 AM EST [facility] Blood Venous blood specimen / Unknown Venipuncture / Unknown 07/21/2024 7:40 AM EST 07/21/2024 7:52 AM EST Cherry SALINAS LAB BLOOD ORDERABL ES Performing Organization Address [facility]/State/ZIP Co de Phone Number [facility] [address] [place] [address], * Cortisol (07/21/2024 7:40 AM EST) Cortisol 21.0 mcg/dL LAB CHEMISTRY METHOD 07/21/2024 8:41 AM EST [facility] Blood Venous blood specimen / Unknown Venipuncture / Unknown 07/21/2024 7:40 AM EST 07/21/2024 7:52 AM EST Narrative [facility] - 07/21/2024 8:41 AM EST CORTISOL REFERENCE RANGE ?? 8 AM SPEC: ??5.0-23.0 mcg/dL ?? 4 PM SPEC: ??3.0-16.0 mcg/dL ?? 8 PM SPEC: ??<5.0 mcg/dL Dilan SALINAS LAB BLOOD ORDERAB LES [facility] [address] [place] [address], * (ABNORMAL) Insulin, fasting (07/21/2024 7:40 AM EST) Insulin 1.7(L) 3.0 - 25.0 mcIU/mL LAB CHEMISTRY METHOD 07/21/2024 8:41 AM EST [facility] Blood Venous blood specimen / Unknown Venipuncture / Unknown 07/21/2024 7:40 AM EST 07/21/2024 7:52 AM EST Narrative [facility] - 07/21/2024 8:41 AM EST Insulin reference range based on fasting status. ??Insulin values vary in non- fasting individuals. Dilan SALINAS LAB BLOOD ORDERAB LES Performing Organization Address City/[facility]/ZIP Co de Phone Number [facility] [address] [place] [address], [place] [phone] * C-peptide (07/21/2024 7:40 AM EST) [facility] C-Peptide 0.92 0.80 - 3.90 ng/mL LAB CHEMISTRY METHOD 07/21/2024 9:50 AM EST [facility] Blood Venous blood specimen / Unknown Venipuncture / Unknown 07/21/2024 7:40 AM EST 07/21/2024 7:52 AM EST Dilan SALINAS LAB BLOOD ORDERAB LES Performing Organization Address City/[facility]/ZIP Co de Phone Number [facility] [address] [place] [address], [place] [phone] * (ABNORMAL) POCT Glucose, blood (07/20/2024 8:23 PM EST) [facility] Glucose POCT 181(H) 70 - 100 mg/dL 07/20/2024 8:24 PM EST [facility] POCT Comment RN Notified 07/20/2024 8:24 PM EST [facility] Blood Capillary blood specimen / Unknown 07/20/2024 8:23 PM EST 07/20/2024 8:25 PM EST Robin Soto MD LAB POINT OF CARE TE ST DOCKED DEVICE UNSOLICITED RESULTS Performing Organization Address [facility]/ZIP Co de Phone Number [facility] [address] [place] [address], [place] [phone] * POCT Glucose, blood (07/20/2024 4:47 PM EST) Glucose POCT 88 70 - 100 mg/dL 07/20/2024 4:48 PM EST [facility] Blood Capillary blood specimen / Unknown 07/20/2024 4:47 PM EST 07/20/2024 4:49 PM EST Robin Soto MD LAB POINT OF CARE TE ST DOCKED DEVICE UNSOLICITED RESULTS Performing Organization Address [facility] Co de Phone Number [facility] [address] [place] [address], [place] [phone] * (ABNORMAL) POCT Glucose, blood (07/20/2024 3:57 PM EST) Glucose POCT 69(L) 70 - 100 mg/dL 07/20/2024 4:19 PM EST [facility] Blood Capillary blood specimen / Unknown 07/20/2024 3:57 PM EST 07/20/2024 4:20 PM EST Robin Soto MD LAB POINT OF CARE TE ST DOCKED DEVICE UNSOLICITED RESULTS Performing Organization Address [facility]/ZIP Co de Phone Number [facility] [address] [place] [address], [place] [phone] * (ABNORMAL) POCT Glucose, blood (07/20/2024 11:10 AM EST) Glucose POCT 108(H) 70 - 100 mg/dL 07/20/2024 11:11 AM EST [facility] Blood Capillary blood specimen / Unknown 07/20/2024 11:10 AM EST 07/20/2024 11:13 AM EST Robin Soto MD LAB POINT OF CARE TE ST DOCKED DEVICE UNSOLICITED RESULTS Performing Organization Address [facility]/ZIP Co de Phone Number [facility] [address] [place] [address], [place] [phone] * (ABNORMAL) POCT Glucose, blood (07/20/2024 9:38 AM EST) [facility] Glucose POCT 101(H) 70 - 100 mg/dL 07/20/2024 9:39 AM EST [facility] Blood Capillary blood specimen / Unknown 07/20/2024 9:38 AM EST 07/20/2024 9:40 AM EST Robin Soto MD LAB POINT OF CARE TE ST DOCKED DEVICE UNSOLICITED RESULTS Performing Organization Address [facility]/ZIP Co de Phone Number [facility] [address] [place] [address], [place] [phone] * Thyroid stimulating hormone (07/20/2024 6:06 AM EST) [facility] TSH 2.70 0.40 - 4.00 mcIU/mL LAB CHEMISTRY METHOD 07/20/2024 7:13 PM EST [facility] Blood Venous blood specimen / Unknown Venipuncture / Unknown 07/20/2024 6:06 AM EST 07/20/2024 7:02 AM EST Dilan SALINAS LAB BLOOD ORDERAB LES Performing Organization Address [facility]/ZIP Co de Phone Number [facility] [address] [place] [address], [place] [phone] * HIV 1,2 antibody, p24 antigen with reflex to differentiation (07/20/2024 6:06 AM EST) [facility] HIV Combo AB/AG Negative Negative LAB CHEMISTRY METHOD 07/20/2024 3:01 PM [facility] Blood Venous blood specimen / Unknown Venipuncture / Unknown 07/20/2024 6:06 AM EST 07/20/2024 7:02 AM EST [facility] - 07/20/2024 3:01 PM EST This assay is a 4th generation assay allowing for earlier detection of HIV infection by detecting the presence of the HIV-1 p24 antigen as well as the traditional antibodies to HIV type 1 (including group O) and type 2. ??Use of a 4th generation assay is the current CDC recommendation for HIV screening. Dilan SALINAS LAB BLOOD ORDERAB LES [facility] [address] [place] [address], * (ABNORMAL) Manual differential (07/20/2024 6:06 AM EST) Neutrophils % 79.0 % LAB HEMETOLOGY METHOD 07/20/2024 8:58 AM [facility] Bands % 10.0 % LAB HEMETOLOGY METHOD 07/20/2024 8:58 AM [facility] Lymphocytes % 6.0 % LAB HEMETOLOGY METHOD 07/20/2024 8:58 AM [facility] Monocytes % 1.0 % LAB HEMETOLOGY METHOD 07/20/2024 8:58 AM [facility] Eosinophils % 0.0 % LAB HEMETOLOGY METHOD 07/20/2024 8:58 AM [facility] Basophils % 1.0 % LAB HEMETOLOGY METHOD 07/20/2024 8:58 AM [facility] Metamyelocytes % 4.0(H) % LAB HEMETOLOGY METHOD 07/20/2024 8:58 AM [facility] Neutrophils Absolute Manual 9.56(H) 1.50 - 7.00 K/mcL LAB HEMETOLOGY METHOD 07/20/2024 8:58 AM [facility] Bands Absolute Manual 1.21(H) 0.00 - 0.00 K/mcL LAB HEMETOLOGY METHOD 07/20/2024 8:58 AM [facility] Lymphocytes Absolute 0.73(L) 1.00 - 5.00 K/mcL LAB HEMETOLOGY METHOD 07/20/2024 8:58 AM [facility] Monocytes Absolute Manual 0.12(L) 0.20 - 1.00 K/mcL LAB HEMETOLOGY METHOD 07/20/2024 8:58 AM [facility] Eosinophils Absolute Manual 0.00 0.00 - 0.50 K/mcL LAB HEMETOLOGY METHOD 07/20/2024 8:58 AM [facility] Basophils Absolute Manual 0.12 0.00 - 0.20 K/mcL LAB HEMETOLOGY METHOD 07/20/2024 8:58 AM [facility] Metamyelocytes Absolute Manual 0.48(H) 0.00 - 0.00 K/mcL LAB HEMETOLOGY METHOD 07/20/2024 8:58 AM [facility] Rbc Morphology Present( A) Consistent with indices, Normal for LAB HEMETOLOGY METHOD 07/20/2024 8:58 AM [facility] Comment:RBC: Morphology agre es with CBC Platelet Morphology - WAM See Note(A) Normal LAB HEMETOLOGY METHOD 07/20/2024 8:58 AM [facility] Comment:PLT: Normal Toxic Granules Present Present( A) (none) LAB HEMETOLOGY METHOD 07/20/2024 8:58 AM [facility] Vacuolated Neutrophils Present Present( A) (none) LAB HEMETOLOGY METHOD 07/20/2024 8:58 AM [facility] Dohle Body Present Present( A) (none) LAB HEMETOLOGY METHOD 07/20/2024 8:58 AM [facility] Blood Venous blood specimen / Unknown Venipuncture / Unknown 07/20/2024 6:06 AM EST 07/20/2024 7:03 AM EST Cherry SALINAS LAB BLOOD ORDERABL ES [facility] [address] [place] [address], * (ABNORMAL) CBC auto differential (07/20/2024 6:06 AM EST) WBC 12.1(H) 4.8 - 10.8 K/mcL LAB HEMETOLOGY METHOD 07/20/2024 8:58 AM [facility] RBC 4.00(L) 4.50 - 5.50 M/mcL LAB HEMETOLOGY METHOD 07/20/2024 8:58 AM [facility] Hemoglobin 13.1(L) 13.5 - 17.5 g/dL LAB HEMETOLOGY METHOD 07/20/2024 8:58 AM [facility] Hematocrit 38.0(L) 42.0 - 54.0 % LAB HEMETOLOGY METHOD 07/20/2024 8:58 AM [facility] MCV 94.3 79.0 - 98.0 FL LAB HEMETOLOGY METHOD 07/20/2024 8:58 AM [facility] MCH 32.5(H) 27.0 - 32.0 pcg LAB HEMETOLOGY METHOD 07/20/2024 8:58 AM [facility] MCHC 34.5 32.0 - 37.0 g/dL LAB HEMETOLOGY METHOD 07/20/2024 8:58 AM [facility] RDW 12.9 11.0 - 15.0 % LAB HEMETOLOGY METHOD 07/20/2024 8:58 AM EST [facility] Platelets 138 130 - 400 K/mcL LAB HEMETOLOGY METHOD 07/20/2024 8:58 AM EST [facility] MPV 10.4 7.0 - 11.0 FL LAB HEMETOLOGY METHOD 07/20/2024 8:58 AM [facility] NRBC 0.2 <1.0 % LAB HEMETOLOGY METHOD 07/20/2024 8:58 AM EST [facility] NRBC Absolute 0.02 <0.10 K/mcL LAB HEMETOLOGY METHOD 07/20/2024 8:58 AM [facility] Blood Venous blood specimen / Unknown Venipuncture / Unknown 07/20/2024 6:06 AM EST 07/20/2024 7:03 AM EST Cherry SALINAS LAB BLOOD ORDERABL ES Performing Organization Address City/[facility]/ZIP Co de Phone Number [facility] [address] [place] [address], [place] [phone] * (ABNORMAL) Magnesium (07/20/2024 6:06 AM EST) Magnesium 1.8(L) 1.9 - 2.6 mg/dL LAB CHEMISTRY METHOD 07/20/2024 7:51 AM [facility] Blood Venous blood specimen / Unknown Venipuncture / Unknown 07/20/2024 6:06 AM EST 07/20/2024 7:02 AM EST Cherry SALINAS LAB BLOOD ORDERABL ES [facility] [address] [place] [address], [place] [phone] * (ABNORMAL) Basic metabolic panel (07/20/2024 6:06 AM EST) Sodium 135 133 - 145 mmol/L LAB CHEMISTRY METHOD 07/20/2024 7:58 AM [facility] Potassium 3.0(L) 3.5 - 5.5 mmol/L LAB CHEMISTRY METHOD 07/20/2024 7:58 AM [facility] Chloride 104 96 - 110 mmol/L LAB CHEMISTRY METHOD 07/20/2024 7:58 AM [facility] CO2 25 21 - 32 mmol/L LAB CHEMISTRY METHOD 07/20/2024 7:58 AM [facility] Anion Gap 6 3 - 11 LAB CHEMISTRY METHOD 07/20/2024 7:58 AM [facility] Glucose 40(L) 70 - 100 mg/dL LAB CHEMISTRY METHOD 07/20/2024 7:58 AM [facility] BUN 12 5 - 25 mg/dL LAB CHEMISTRY METHOD 07/20/2024 7:58 AM [facility] Creatinine 0.55(L) 0.70 - 1.30 mg/dL LAB CHEMISTRY METHOD 07/20/2024 7:58 AM [facility] eGFR 109 >=60 mL/min/1. 73m2 LAB CHEMISTRY METHOD 07/20/2024 7:58 AM [facility] Comment:Calculation based on the??Chronic Kidney Disease Epidemiology Collaboration (CKD-EPI) equation refit??without adjustment for race. BUN/Creatinine Ratio 21.8 LAB CHEMISTRY METHOD 07/20/2024 7:58 AM [facility] Calcium 8.6 8.5 - 10.5 mg/dL LAB CHEMISTRY METHOD 07/20/2024 7:58 AM [facility] Blood Venous blood specimen / Unknown Venipuncture / Unknown 07/20/2024 6:06 AM EST 07/20/2024 7:02 AM EST Cherry SALINAS LAB BLOOD ORDERABL ES [facility] [address] [place] [address], * ECG 12 lead (07/19/2024 1:17 PM EST) Ventricular Rate ECG 115 BPM GEMUSE Atrial Rate 115 BPM GEMUSE P-R Interval 140 ms GEMUSE QRS Duration 82 ms GEMUSE Q-T Interval 290 ms GEMUSE QTc 401 ms GEMUSE P Wave [place] 67 degrees GEMUSE R [place] 77 degrees GEMUSE T [place] 64 degrees GEMUSE ECG Interpretation Sinus tachycardia Biatrial enlargement Anterior infarct (cited on or before 18-JUL-2024) Abnormal ECG When compared with ECG of 18-JUL-2024 21:25, Premature ventricular complexes are no longer Present Confirmed by MD Anibal, [place] ([id number]) on 07/20/2024 8:56:03 AM GEMUSE 07/19/2024 1:17 PM EST 07/20/2024 8:56 AM EST Cherry SALINAS ECG ORDERABLES GEMUSE * CT Chest wo Contrast (07/19/2024 8:39 AM EST) Anatomical Region Laterality Modality Body Computed Tomogra phy 07/19/2024 7:31 PM EST Impressions 07/19/2024 7:31 PM EST 1. Right upper and middle lobe pneumonia. 2. Small right and trace left pleural effusions 3. Peribronchial opacities in the posterior left lower lobe and lower lobe bronchial wall thickening 4. Emphysema This document has been electronically signed by: Eleuterio Leong MD on 07/19/2024 19:31:13 Narrative 07/19/2024 7:[address] chest without contrast Comparison: None Findings: Normal heart size. No pericardial effusion. Aortic and coronary atherosclerosis. The visualized thyroid and mediastinum are unremarkable. Right upper and middle lobe consolidations. Emphysema. Small right and trace left pleural effusion. Small peribronchial opacities in the posterior left lower lobe. Bronchial wall thickening in the lower lobes. Right hepatic lobe cyst. No acute findings in the visualized upper abdomen. No acute fractures. Procedure Note Eleuterio Leong MD - 07/19/2024 CT chest without contrast Comparison: None Findings: Normal heart size. No pericardial effusion. Aortic and coronary atherosclerosis. The visualized thyroid and mediastinum are unremarkable. Right upper and middle lobe consolidations. Emphysema. Small right and trace left pleural effusion. Small peribronchial opacities in the posterior left lower lobe. Bronchial wall thickening in the lower lobes. Right hepatic lobe cyst. No acute findings in the visualized upper abdomen. No acute fractures. IMPRESSION: 1. Right upper and middle lobe pneumonia. 2. Small right and trace left pleural effusions 3. Peribronchial opacities in the posterior left lower lobe and lowerlobe bronchial wall thickening 4. Emphysema This document has been electronically signed by: Eleuterio Leong MD on 07/19/2024 19:31:[address] SAL[address] IM [address] PROCEDURES * (ABNORMAL) Hepatic function panel (07/19/2024 4:47 AM EST) Total Protein 5.3(L) 6.0 - 8.0 g/dL LAB CHEMISTRY METHOD 07/19/2024 12:04 PM [facility] Albumin 2.7(L) 3.2 - 5.0 g/dL LAB CHEMISTRY METHOD 07/19/2024 12:04 PM [facility] Total Bilirubin 0.3 0.0 - 1.4 mg/dL LAB CHEMISTRY METHOD 07/19/2024 12:04 PM [facility] Bilirubin, Direct 0.1 0.0 - 0.3 mg/dL LAB CHEMISTRY METHOD 07/19/2024 12:04 PM [facility] Bilirubin, Indirect 0.2 0.0 - 1.1 mg/dL LAB CHEMISTRY METHOD 07/19/2024 12:04 PM [facility] ALT (SGPT) 17 10 - 60 unit/L LAB CHEMISTRY METHOD 07/19/2024 12:04 PM [facility] AST (SGOT) 35 10 - 42 unit/L LAB CHEMISTRY METHOD 07/19/2024 12:04 PM [facility] Alkaline Phosphatase 29(L) 42 - 121 unit/L LAB CHEMISTRY METHOD 07/19/2024 12:04 PM [facility] Blood Venous blood specimen / Unknown Venipuncture / Unknown 07/19/2024 4:47 AM EST 07/19/2024 5:10 AM EST Cherry SALINAS LAB BLOOD ORDERABL ES [facility] [address] [place] [address], * (ABNORMAL) Manual differential (07/19/2024 4:47 AM EST) Neutrophils % 63.0 % LAB HEMETOLOGY METHOD 07/19/2024 7:13 AM [facility] Bands % 2.0 % LAB HEMETOLOGY METHOD 07/19/2024 7:13 AM [facility] Lymphocytes % 28.0 % LAB HEMETOLOGY METHOD 07/19/2024 7:13 AM [facility] Monocytes % 7.0 % LAB HEMETOLOGY METHOD 07/19/2024 7:13 AM [facility] Eosinophils % 0.0 % LAB HEMETOLOGY METHOD 07/19/2024 7:13 AM [facility] Basophils % 0.0 % LAB HEMETOLOGY METHOD 07/19/2024 7:13 AM [facility] Neutrophils Absolute Manual 0.95(L) 1.50 - 7.00 K/mcL LAB HEMETOLOGY METHOD 07/19/2024 7:13 AM [facility] Bands Absolute Manual 0.03(H) 0.00 - 0.00 K/mcL LAB HEMETOLOGY METHOD 07/19/2024 7:13 AM [facility] Lymphocytes Absolute 0.42(L) 1.00 - 5.00 K/[facility] LAB HEMETOLOGY METHOD 07/19/2024 7:13 AM EST [facility] Monocytes Absolute Manual 0.11(L) 0.20 - 1.00 K/[facility] LAB HEMETOLOGY METHOD 07/19/2024 7:13 AM EST [facility] Eosinophils Absolute Manual 0.00 0.00 - 0.50 K/[facility] LAB HEMETOLOGY METHOD 07/19/2024 7:13 AM EST [facility] Basophils Absolute Manual 0.00 0.00 - 0.20 K/[facility] LAB HEMETOLOGY METHOD 07/19/2024 7:13 AM [facility] Rbc Morphology Consistent with indices Consistent with indices, Normal for [place] LAB HEMETOLOGY METHOD 07/19/2024 7:13 AM [facility] Platelet Morphology - WAM Normal Normal LAB HEMETOLOGY METHOD 07/19/2024 7:13 AM EST [facility] Vacuolated Neutrophils Present Present(A) (none) LAB HEMETOLOGY METHOD 07/19/2024 7:13 AM [facility] Blood Venous blood specimen / Unknown Venipuncture / Unknown 07/19/2024 4:47 AM EST 07/19/2024 5:10 AM EST Pino Apple MD LAB BLOOD ORDERABLES [facility] [address] [place] [address], * (ABNORMAL) CBC auto differential (07/19/2024 4:47 AM EST) WBC 1.5(LL) 4.8 - 10.8 K/[facility] LAB HEMETOLOGY METHOD 07/19/2024 7:18 AM EST [facility] RBC 4.40(L) 4.50 - 5.50 M/[facility] LAB HEMETOLOGY METHOD 07/19/2024 7:18 AM EST [facility] Hemoglobin 14.3 13.5 - 17.5 g/dL LAB HEMETOLOGY METHOD 07/19/2024 7:18 AM [facility] Hematocrit 41.0(L) 42.0 - 54.0 % LAB HEMETOLOGY METHOD 07/19/2024 7:18 AM [facility] MCV 93.8 79.0 - 98.0 FL LAB HEMETOLOGY METHOD 07/19/2024 7:18 AM EST [facility] MCH 32.7(H) 27.0 - 32.0 pcg LAB HEMETOLOGY METHOD 07/19/2024 7:18 AM [facility] MCHC 34.9 32.0 - 37.0 g/dL LAB HEMETOLOGY METHOD 07/19/2024 7:18 AM [facility] RDW 12.6 11.0 - 15.0 % LAB HEMETOLOGY METHOD 07/19/2024 7:18 AM [facility] Platelets 173 130 - 400 K/mcL LAB HEMETOLOGY METHOD 07/19/2024 7:18 AM [facility] MPV 9.8 7.0 - 11.0 FL LAB HEMETOLOGY METHOD 07/19/2024 7:18 AM [facility] NRBC 0.0 <1.0 % LAB HEMETOLOGY METHOD 07/19/2024 7:18 AM [facility] NRBC Absolute 0.00 <0.10 K/mcL LAB HEMETOLOGY METHOD 07/19/2024 7:18 AM [facility] Blood Venous blood specimen / Unknown Venipuncture / Unknown 07/19/2024 4:47 AM EST 07/19/2024 5:10 AM EST Pino Apple MD LAB BLOOD ORDERABLES [facility] [address] [place] [address], [place] [phone] * (ABNORMAL) Magnesium (07/19/2024 4:47 AM EST) [facility] Magnesium 1.6(L) 1.9 - 2.6 mg/dL LAB CHEMISTRY METHOD 07/19/2024 5:40 AM EST [facility] Blood Venous blood specimen / Unknown Venipuncture / Unknown 07/19/2024 4:47 AM EST 07/19/2024 5:10 AM EST Pino Apple MD LAB BLOOD ORDERABLES [facility] [address] [place] [address], [place] [phone] * (ABNORMAL) Basic metabolic panel (07/19/2024 4:47 AM EST) [facility] Sodium 132(L) 133 - 145 mmol/L LAB CHEMISTRY METHOD 07/19/2024 5:40 AM [facility] Potassium 3.3(L) 3.5 - 5.5 mmol/L LAB CHEMISTRY METHOD 07/19/2024 5:40 AM [facility] Chloride 100 96 - 110 mmol/L LAB CHEMISTRY METHOD 07/19/2024 5:40 AM [facility] CO2 25 21 - 32 mmol/L LAB CHEMISTRY METHOD 07/19/2024 5:40 AM [facility] Anion Gap 7 3 - 11 LAB CHEMISTRY METHOD 07/19/2024 5:40 AM [facility] Glucose 61(L) 70 - 100 mg/dL LAB CHEMISTRY METHOD 07/19/2024 5:40 AM [facility] BUN 21 5 - 25 mg/dL LAB CHEMISTRY METHOD 07/19/2024 5:40 AM [facility] Creatinine 0.79 0.70 - 1.30 mg/dL LAB CHEMISTRY METHOD 07/19/2024 5:40 AM EST [facility] eGFR 97 >=60 mL/min/1. 73m2 LAB CHEMISTRY METHOD 07/19/2024 5:40 AM EST [facility] Comment:Calculation based on the??Chronic Kidney Disease Epidemiology Collaboration (CKD-EPI) equation refit??without adjustment for race. BUN/Creatinine Ratio 26.6 LAB CHEMISTRY METHOD 07/19/2024 5:40 AM EST [facility] Calcium 8.8 8.5 - 10.5 mg/dL LAB CHEMISTRY METHOD 07/19/2024 5:40 AM EST [facility] Blood Venous blood specimen / Unknown Venipuncture / Unknown 07/19/2024 4:47 AM EST 07/19/2024 5:10 AM EST Pino Apple MD LAB BLOOD ORDERABLES [facility] [address] [place] [address], * Mycoplasma pneumoniae antibody IgM (07/19/2024 4:47 AM EST) Mycoplasma Antibody IgM 0.53 <=0.90 INDEX 07/22/2024 6:06 AM EST [facility] Comment: Negative: No antibody detected Test performed at [facility], [address] , [place], [place] ??[address] ? [phone] Michelle Stewart MD, PhD - Family Intervention Specialist Blood Venous blood specimen / Unknown Venipuncture / Unknown 07/19/2024 4:47 AM EST 07/19/2024 5:11 AM EST Pino Apple MD LAB BLOOD ORDERABLES [facility] [address] [place] [address] * ECG-Annotated (07/19/2024) Provider Onbase MD ECG ORDERABLES * Respiratory virus panel molecular study (07/18/2024 11:54 PM EST) Adenovirus Detection by PCR Not Detected Not Detected LAB MICROBIOLOGY METHOD 07/19/2024 12:59 AM [facility] Influenza A PCR Not Detected Not Detected LAB MICROBIOLOGY METHOD 07/19/2024 12:59 AM [facility] Influenza B PCR Not Detected Not Detected LAB MICROBIOLOGY METHOD 07/19/2024 12:59 AM [facility] Coronavirus 229E Not Detected Not Detected LAB MICROBIOLOGY METHOD 07/19/2024 12:59 AM [facility] Coronavirus HKU1 Not Detected Not Detected LAB MICROBIOLOGY METHOD 07/19/2024 12:59 AM [facility] Coronavirus OC43 Not Detected Not Detected LAB MICROBIOLOGY METHOD 07/19/2024 12:59 AM [facility] Coronavirus NL63 Not Detected Not Detected LAB MICROBIOLOGY METHOD 07/19/2024 12:59 AM [facility] Parainfluenza Virus 1 Not Detected Not Detected LAB MICROBIOLOGY METHOD 07/19/2024 12:59 AM [facility] Parainfluenza Virus 2 Not Detected Not Detected LAB MICROBIOLOGY METHOD 07/19/2024 12:59 AM [facility] Parainfluenza Virus 3 Not Detected Not Detected LAB MICROBIOLOGY METHOD 07/19/2024 12:59 AM [facility] Parainfluenza Virus 4 Not Detected Not Detected LAB MICROBIOLOGY METHOD 07/19/2024 12:59 AM [facility] RSV PCR Not Detected Not Detected LAB MICROBIOLOGY METHOD 07/19/2024 12:59 AM [facility] Human Metapneumovirus A and B Not Detected Not Detected LAB MICROBIOLOGY METHOD 07/19/2024 12:59 AM [facility] Rhinovirus/Entero virus Not Detected Not Detected LAB MICROBIOLOGY METHOD 07/19/2024 12:59 AM EST [facility] Bordetella pertussis Not Detected Not Detected LAB MICROBIOLOGY METHOD 07/19/2024 12:59 AM EST [facility] Bordetella parapertussis Not Detected Not Detected LAB MICROBIOLOGY METHOD 07/19/2024 12:59 AM [facility] Mycoplasma pneumo by PCR Not Detected Not Detected LAB MICROBIOLOGY METHOD 07/19/2024 12:59 AM EST [facility] Chlamydia pneumoniae Not Detected Not Detected LAB MICROBIOLOGY METHOD 07/19/2024 12:59 AM [facility] SARS COV-2 Not Detected Not Detected LAB MICROBIOLOGY METHOD 07/19/2024 12:59 AM [facility] Swab Both anterior nares / Unknown Non-blood Collection / Unknown 07/18/2024 11:54 PM EST 07/19/2024 12:04 AM EST [facility] - 07/19/2024 12:59 AM EST Testing was performed using the [employer] Respiratory Pathogen PCR Assay. All results must be correlated with the clinical findings. Results should not be used as the sole basis for diagnosis. False Negative results may occur from the presence of sequence variants in the region targeted by the assay or the presence of inhibitors. Results may be affected by concurrent antiviral/antimicrobial therapy or levels of organisms that are below the limit of detection. Pino Apple MD LAB MICROBIOLOGY - G ENERAL ORDERABLES [facility] [address] [place] [address], * Legionella antigen urine, EIA (07/18/2024 10:24 PM EST) Legionella Antigen, Ur Negative Negative 07/18/2024 11:13 PM EST [facility] Urine Urine specimen obtained by clean catch procedure / Unknown Non-blood Collection / Unknown 07/18/2024 10:24 PM EST 07/18/2024 10:50 PM EST Narrative [facility] - 07/18/2024 11:13 PM EST Negative for Legionella pneumophilia serogroup 1 antigen. This presumptive result suggests no current or recent infection due to L. pneumophilia serogroup 1. Culture is recommended if Legionella infection is till suspected, as other serogroups and species of Legionella are not detected by this test. Pino Apple MD LAB URINE ORDERABLES Performing Organization Address [facility]/ZIP Co de Phone Number [facility] [address] [place] [address], * Troponin I high sensitivity (07/18/2024 9:36 PM EST) Pathologist [facility] High Sensitivity Troponin I 15 <=79 ng/L LAB CHEMISTRY METHOD 07/18/2024 10:07 PM EST [facility] Blood Venous blood specimen / Unknown Venipuncture / Unknown 07/18/2024 9:36 PM EST 07/18/2024 9:42 PM EST Narrative [facility] - 07/18/2024 10:07 PM EST High levels of biotin in samples may falsely decrease hsTroponin values. ??Use caution when interpreting hsTroponin results in patients taking biotin who exhibit renal impairment (eGFR <60) or in patients taking more than 20 mg/day of biotin. Karyna Garza DO LAB BLOOD ORDERAB LES Performing Organization Address [facility]/ZIP Co de Phone Number [facility] [address] [place] [address], * XR Chest 1 View (07/18/2024 9:29 PM EST) Anatomical Region Laterality Modality Body Radiographic Pao ging 07/19/2024 7:23 AM EST Impressions 07/19/2024 7:24 AM EST Right midlung consolidation. -------- FINAL REPORT -------- Dictated By: Barry Arellano Dictated Date: 07/19/2024 07:23 ET Assigned Physician: Barry Arellano Reviewed and Electronically Signed By: Barry Arellano Signed Date: 07/19/2024 07:24 ET Workstation ID: [id number] Transcribed By: Self Edit Transcribed Date: 07/19/2024 07:23 ET Narrative 07/19/2024 7:24 AM EST EXAMINATION: Chest portable upright 2120 hours. CLINICAL INDICATION: SOB. COMPARISON: None. FINDINGS: Lungs are hyperexpanded ??with dense consolidation right midlung. The left lung is clear. No gross bony abnormality seen. Procedure Note Barry Arellano MD - 07/19/2024 EXAMINATION: Chest portable upright 2120 hours. CLINICAL INDICATION: SOB. COMPARISON: None. FINDINGS: Lungs are hyperexpanded with dense consolidation right midlung.The left lung is clear. No gross bony abnormality seen. IMPRESSION: Right midlung consolidation. -------- FINAL REPORT -------- Dictated By: Barry Arellano Dictated Date: 07/19/2024 07:23 ET Assigned Physician: Barry Arellano Reviewed and Electronically Signed By: Barry Arellano Signed Date: 07/19/2024 07:24 ET Workstation ID: [id number] Transcribed By: Self Edit Transcribed Date: 07/19/2024 07:23 ET Karyna Garza DO IMG XR PROCEDURES * ECG 12 lead (07/18/2024 9:25 PM EST) Ventricular Rate ECG 97 BPM GEMUSE Atrial Rate 97 BPM GEMUSE P-R Interval 144 ms GEMUSE QRS Duration 78 ms GEMUSE Q-T Interval 334 ms GEMUSE QTc 424 ms GEMUSE P Wave [place] 72 degrees GEMUSE R [place] 80 degrees GEMUSE T [place] 70 degrees GEMUSE ECG Interpretation Sinus rhythm with occasional Premature ventricular complexes Biatrial enlargement Possible Anterior infarct (cited on or before 18-JUL-2024) Abnormal ECG When compared with ECG of 18-JUL-2024 20:17, No significant change was found Confirmed by MD Anibal, Kris ([id number]) on 07/20/2024 8:06:31 AM GEMUSE 07/18/2024 9:25 PM EST 07/20/2024 8:06 AM EST Kiran Saunders MD ECG ORDERABLES GEMUSE * (ABNORMAL) Manual differential (07/18/2024 8:38 PM EST) Neutrophils % 16.0 % LAB HEMETOLOGY METHOD 07/18/2024 9:24 PM [facility] Bands % 26.0 % LAB HEMETOLOGY METHOD 07/18/2024 9:24 PM [facility] Lymphocytes % 26.0 % LAB HEMETOLOGY METHOD 07/18/2024 9:24 PM [facility] Reactive Lymphocyte 1.00 % LAB HEMETOLOGY METHOD 07/18/2024 9:24 PM [facility] Monocytes % 3.0 % LAB HEMETOLOGY METHOD 07/18/2024 9:24 PM [facility] Eosinophils % 0.0 % LAB HEMETOLOGY METHOD 07/18/2024 9:24 PM [facility] Basophils % 0.0 % LAB HEMETOLOGY METHOD 07/18/2024 9:24 PM [facility] Metamyelocytes % 25.0(H) % LAB HEMETOLOGY METHOD 07/18/2024 9:24 PM [facility] Myelocytes % 4.0(H) % LAB HEMETOLOGY METHOD 07/18/2024 9:24 PM [facility] Neutrophils Absolute Manual 0.40(L) 1.50 - 7.00 K/mcL LAB HEMETOLOGY METHOD 07/18/2024 9:24 PM [facility] Bands Absolute Manual 0.65(H) 0.00 - 0.00 K/mcL LAB HEMETOLOGY METHOD 07/18/2024 9:24 PM EST [facility] Lymphocytes Absolute 0.65(L) 1.00 - 5.00 K/mcL LAB HEMETOLOGY METHOD 07/18/2024 9:24 PM [facility] Reactive Lymph Abs Manual 0.03(H) 0.00 - 0.00 lym LAB HEMETOLOGY METHOD 07/18/2024 9:24 PM [facility] Monocytes Absolute Manual 0.08(L) 0.20 - 1.00 K/mcL LAB HEMETOLOGY METHOD 07/18/2024 9:24 PM [facility] Eosinophils Absolute Manual 0.00 0.00 - 0.50 K/mcL LAB HEMETOLOGY METHOD 07/18/2024 9:24 PM [facility] Basophils Absolute Manual 0.00 0.00 - 0.20 K/mcL LAB HEMETOLOGY METHOD 07/18/2024 9:24 PM [facility] Metamyelocytes Absolute Manual 0.63(H) 0.00 - 0.00 K/mcL LAB HEMETOLOGY METHOD 07/18/2024 9:24 PM [facility] Myelocytes Absolute Manual 0.10(H) 0.00 - 0.00 K/mcL LAB HEMETOLOGY METHOD 07/18/2024 9:24 PM EST [facility] Rbc Morphology Present( A) Consistent with indices, Normal for [place] LAB HEMETOLOGY METHOD 07/18/2024 9:24 PM [facility] Comment:RBC: Morphology agre es with CBC Platelet Morphology - WAM See Note(A) Normal LAB HEMETOLOGY METHOD 07/18/2024 9:24 PM [facility] Comment:PLT: Large platelets seen Schistocytes Present < 5%(A) (none) LAB HEMETOLOGY METHOD 07/18/2024 9:24 PM EST [facility] Toxic Granules Present Present( A) (none) LAB HEMETOLOGY METHOD 07/18/2024 9:24 PM EST [facility] Vacuolated Neutrophils Present Present( A) (none) LAB HEMETOLOGY METHOD 07/18/2024 9:24 PM [facility] Dohle Body Present Present( A) (none) LAB HEMETOLOGY METHOD 07/18/2024 9:24 PM EST [facility] Blood Venous blood specimen / Unknown Venipuncture / Unknown 07/18/2024 8:38 PM EST 07/18/2024 8:43 PM EST Karyna Garza DO LAB BLOOD ORDERAB LES Performing Organization Address City/State/[facility] Co de Phone Number [facility] [address] [place] [address], * (ABNORMAL) CBC auto differential (07/18/2024 8:38 PM EST) WBC 2.5(L) 4.8 - 10.8 K/mcL LAB HEMETOLOGY METHOD 07/18/2024 9:24 PM [facility] RBC 4.50 4.50 - 5.50 M/mcL LAB HEMETOLOGY METHOD 07/18/2024 9:24 PM [facility] Hemoglobin 14.8 13.5 - 17.5 g/dL LAB HEMETOLOGY METHOD 07/18/2024 9:24 PM [facility] Hematocrit 42.5 42.0 - 54.0 % LAB HEMETOLOGY METHOD 07/18/2024 9:24 PM [facility] MCV 93.6 79.0 - 98.0 FL LAB HEMETOLOGY METHOD 07/18/2024 9:24 PM [facility] MCH 32.6(H) 27.0 - 32.0 pcg LAB HEMETOLOGY METHOD 07/18/2024 9:24 PM EST [facility] MCHC 34.8 32.0 - 37.0 g/dL LAB HEMETOLOGY METHOD 07/18/2024 9:24 PM EST [facility] RDW 12.6 11.0 - 15.0 % LAB HEMETOLOGY METHOD 07/18/2024 9:24 PM EST [facility] Platelets 185 130 - 400 K/mcL LAB HEMETOLOGY METHOD 07/18/2024 9:24 PM EST [facility] MPV 9.6 7.0 - 11.0 FL LAB HEMETOLOGY METHOD 07/18/2024 9:24 PM EST [facility] NRBC 0.0 <1.0 % LAB HEMETOLOGY METHOD 07/18/2024 9:24 PM EST [facility] NRBC Absolute 0.00 <0.10 K/mcL LAB HEMETOLOGY METHOD 07/18/2024 9:24 PM EST [facility] Blood Venous blood specimen / Unknown Venipuncture / Unknown 07/18/2024 8:38 PM EST 07/18/2024 8:43 PM EST Karyna Rodriguez Greg MIRELES LAB BLOOD ORDERAB LES [facility] [address] [place] [address], * Troponin I high sensitivity (07/18/2024 8:38 PM EST) High Sensitivity Troponin I 16 <=79 ng/L LAB CHEMISTRY METHOD 07/18/2024 9:12 PM EST [facility] Blood Venous blood specimen / Unknown Venipuncture / Unknown 07/18/2024 8:38 PM EST 07/18/2024 8:44 PM EST Narrative [facility] - 07/18/2024 9:12 PM EST High levels of biotin in samples may falsely decrease hsTroponin values. ??Use caution when interpreting hsTroponin results in patients taking biotin who exhibit renal impairment (eGFR <60) or in patients taking more than 20 mg/day of biotin. Karyna Garza LAB BLOOD ORDERAB LES Performing Organization Address City/[facility]/ZIP Co de Phone Number [facility] [address] [place] [address], [place] [phone] * (ABNORMAL) B-type natriuretic peptide (07/18/2024 8:38 PM EST) BNP 320(H) <=100 pcg/mL LAB CHEMISTRY METHOD 07/18/2024 9:19 PM EST [facility] Blood Venous blood specimen / Unknown Venipuncture / Unknown 07/18/2024 8:38 PM EST 07/18/2024 8:43 PM EST Karyna Garza DO LAB BLOOD ORDERAB LES Performing Organization Address [facility]/ZIP Co de Phone Number [facility] [address] [place] [address], [place] [phone] * (ABNORMAL) Basic metabolic panel (07/18/2024 8:38 PM EST) Sodium 130(L) 133 - 145 mmol/L LAB CHEMISTRY METHOD 07/18/2024 9:08 PM EST [facility] Potassium 3.9 3.5 - 5.5 mmol/L LAB CHEMISTRY METHOD 07/18/2024 9:08 PM EST [facility] Chloride 98 96 - 110 mmol/L LAB CHEMISTRY METHOD 07/18/2024 9:08 PM EST [facility] CO2 23 21 - 32 mmol/L LAB CHEMISTRY METHOD 07/18/2024 9:08 PM EST [facility] Anion Gap 9 3 - 11 LAB CHEMISTRY METHOD 07/18/2024 9:08 PM EST [facility] Glucose 84 70 - 100 mg/dL LAB CHEMISTRY METHOD 07/18/2024 9:08 PM [facility] BUN 26(H) 5 - 25 mg/dL LAB CHEMISTRY METHOD 07/18/2024 9:08 PM [facility] Creatinine 1.06 0.70 - 1.30 mg/dL LAB CHEMISTRY METHOD 07/18/2024 9:08 PM EST [facility] eGFR 77 >=60 mL/min/1. 73m2 LAB CHEMISTRY METHOD 07/18/2024 9:08 PM [facility] Comment:Calculation based on the??Chronic Kidney Disease Epidemiology Collaboration (CKD-EPI) equation refit??without adjustment for race. BUN/Creatinine Ratio 24.5 LAB CHEMISTRY METHOD 07/18/2024 9:08 PM [facility] Calcium 8.6 8.5 - 10.5 mg/dL LAB CHEMISTRY METHOD 07/18/2024 9:08 PM EST [facility] Blood Venous blood specimen / Unknown Venipuncture / Unknown 07/18/2024 8:38 PM EST 07/18/2024 8:44 PM EST Karyna Garza DO LAB BLOOD ORDERAB LES [facility] [address] [place] [address], * ECG 12 lead (07/18/2024 8:17 PM EST) Ventricular Rate ECG 99 BPM GEMUSE Atrial Rate 99 BPM GEMUSE P-R Interval 144 ms GEMUSE QRS Duration 74 ms GEMUSE Q-T Interval 324 ms GEMUSE QTc 415 ms GEMUSE P Wave [place] 69 degrees GEMUSE R [place] 83 degrees GEMUSE T [place] 71 degrees GEMUSE ECG Interpretation Sinus rhythm with occasional Premature ventricular complexes Biatrial enlargement Possible Anterior infarct , age undetermined Abnormal ECG No previous ECGs available Confirmed by LANDRY VICTORIA ([id number]) on 07/18/2024 10:12:44 PM GEMUSE 07/18/2024 8:17 PM EST 07/18/2024 10:12 PM EST Karyna Garza DO ECG ORDERABLES GEMUSE documented in this encounter Visit Diagnoses Diagnosis Dyspnea, unspecified type Pneumonia of right middle lobe due to infectious organism Hypokalemia Hypopotassemia Dyspnea, unspecified type documented in this encounter Admitting Diagnoses Diagnosis SOB (shortness of breath) Shortness of breath Dyspnea, unspecified type documented in this encounter Administered Medications Inactive Administered Medications - up to 3 most recent administrations Medication Order MAR Action Action Date Dose Rate Site acetaminophen (TYLENOL) tablet 650 mg 650 mg, oral, Every 6 hours PRN, mild pain, moderate pain, headaches, fever - temperature GREATER than 38 C (100.4 F), Starting on 07/18/24 at 2153 Given 07/19/2024 1:07 PM EST 650 mg ampicillin-sulbactam (UNASYN) 3 g in sodium chloride 0.9 % 100 mL IVPB 3 g, intravenous, at 200 mL/hr, Administer over 30 Minutes, Every 6 hours, First dose on 07/19/24 at 1200, For 7 days, Indication: Pneumonia, Community Acquired New Bag 07/21/2024 12:09 PM EST 3 g 200 mL/hr New Bag 07/21/2024 6:06 AM EST 3 g 200 mL/hr New Bag 07/21/2024 12:25 AM EST 3 g 200 mL/hr azithromycin (ZITHROMAX) tablet 500 mg 500 mg, oral, Once, On 07/18/24 at 2127, For 1 dose, Indication: Pneumonia, Community Acquired Given 07/18/2024 9:43 PM EST 500 mg cefTRIAXone (ROCEPHIN) 2 g in sterile water 20 mL IV syringe 2 g, intravenous, at 400 mL/hr, Administer over 3 Minutes, Once, On 07/18/24 at 2127, For 1 dose, Do not administer simultaneously with any calcium containing solutions via a Y-site in any patient., Indication: Pneumonia, Community Acquired Given 07/18/2024 9:44 PM EST 2 g 400 mL/hr dextromethorphan-guaiFENesin (ROBITUSSIN-DM) 10-100 mg/5 mL syrup 5 mL 5 mL, oral, Every 4 hours PRN, cough, congestion, Starting on 07/18/24 at 2307 Given 07/19/2024 2:16 AM EST 5 mL dextrose (D50W) 50% injection 12.5 g 12.5 g, intravenous, Every 15 min PRN, low blood sugar, moderate hypoglycemia *Patient is Unconscious, NPO, unable to swallow: BG 54 - 69 mg/dl*, Starting on Sat07/20/24 at 0912 dextrose (D50W) 50% injection 25 g 25 g, intravenous, Every 15 min PRN, low blood sugar, severe hypoglycemia *Patient is Unconscious, NPO, unable to swallow: BG LESS than 54 mg/dL*, Starting on Sat07/20/24 at 0912 dextrose 15 gram/60 mL oral solution 15 g 15 g, oral, Every 15 min PRN, low blood sugar, hypoglycemia *Patient conscious AND able to drink and swallow safely*, Starting on Sat07/20/24 at 0912 dextrose 15 gram/60 mL oral solution 30 g 30 g, oral, Every 15 min PRN, low blood sugar, hypoglycemia *Patient conscious AND able to drink and swallow safely*, Starting on Sat07/20/24 at 0912 doxycycline (VIBRAMYCIN) 100 mg in sodium chloride 0.9 % 100 mL IVPB 100 mg, intravenous, at 100 mL/hr, Administer over 60 Minutes, Every 12 hours, First dose on 07/19/24 at 1300, For 7 days, Indication: Pneumonia, Community Acquired New Bag 07/21/2024 1:36 PM EST 100 mg 100 mL/hr New Bag 07/21/2024 1:57 AM EST 100 mg 100 mL/hr New Bag 07/20/2024 1:13 PM EST 100 mg 100 mL/hr enoxaparin (LOVENOX) injection 40 mg 40 mg, subcutaneous, Daily, First dose on Sat07/19/24 at 0900, Indication: VTE/PE Prophylaxis Given 07/21/2024 8:33 AM EST 40 mg Left Lower Abdomen Given 07/20/2024 9:13 AM EST 40 mg Le ft Lower Abdomen Given 07/19/2024 8:55 AM EST 40 mg Le ft Lower Abdomen Glucagon HCl (rDNA) injection 1 mg 1 mg, intramuscular, Once as needed, low blood sugar, severe hypoglycemia, Starting on Sat07/20/24 at 0912, For 1 dose guaiFENesin (MUCINEX) 12 hr tablet 600 mg 600 mg, oral, Every 12 hours scheduled, First dose on 07/19/24 at 1200, Administer with plenty of fluids to ensure proper action. Do not crush, chew, or split. Given 07/21/2024 8:33 AM EST 600 mg Given 07/20/2024 8:53 PM EST 600 mg Given 07/20/2024 9:13 AM EST 600 mg ipratropium-albuteroL (DUONEB) 0.5-2.5 mg/3 mL nebulizer solution 3 mL 3 mL, nebulization, Once, On 07/18/24 at 2044, For 1 dose Given 07/18/2024 8:48 PM EST 3 mL ipratropium-albuteroL (DUONEB) 0.5-2.5 mg/3 mL nebulizer solution 3 mL 3 mL, nebulization, Every 6 hours PRN, wheezing, shortness of breath, Starting on 07/18/24 at 2302 Given 07/19/2024 12:28 PM EST 3 mL Given 07/19/2024 1:04 AM EST 3 mL levoFLOXacin (LEVAQUIN) IVPB 750 mg 750 mg, intravenous, at 100 mL/hr, Administer over 90 Minutes, Every 48 hours, First dose (after last modification) on 07/19/24 at 0900, For 7 days, Indication: Pneumonia, Community Acquired New Bag 07/21/2024 8:34 AM EST 750 mg 1 00 mL/hr New Bag 07/19/2024 10:17 AM EST 750 mg 100 mL/hr magnesium sulfate 2 gram/50 mL (4 %) IVPB 2 g 2 g, intravenous, at 25 mL/hr, Administer over 2 Hours, Once, On Sat07/19/24 at 0814, For 1 dose New Bag 07/19/2024 8:55 AM EST 2 g 25 mL/hr magnesium sulfate 2 gram/50 mL (4 %) IVPB 2 g 2 g, intravenous, at 25 mL/hr, Administer over 2 Hours, Once, On Sat07/20/24 at 0945, For 1 dose New Bag 07/20/2024 9:31 AM EST 2 g 25 mL/hr magnesium sulfate 2 gram/50 mL (4 %) IVPB 2 g 2 g, intravenous, at 25 mL/hr, Administer over 2 Hours, Once, On Sat07/21/24 at 0915, For 1 dose New Bag 07/21/2024 9:51 AM EST 2 g 25 mL/hr nicotine (NICODERM CQ) 7 mg/24 hr 1 patch 1 patch, transdermal, Administer over 24 Hours, Daily, First dose on Sat07/19/24 at 1400 Patch Applied 07/21/2024 8:34 AM EST 1 patch Right Arm Patch Applied 07/20/2024 9:12 AM EST 1 patch Left Arm Patch Applied 07/19/2024 4:39 PM EST 1 patch Right Arm potassium chloride (KLOR-CON M10) CR tablet 40 mEq 40 mEq, oral, Once, On Sat07/19/24 at 0812, For 1 dose, Tablet may be swallowed whole (do not crush/chew/suck on) OR broken in half and each half swallowed separately OR dissolved (whole tablet) in ~4 ounces of water (allow ~2 minutes to dissolve, stir well and administer immediately). Given 07/19/2024 8:55 AM EST 40 mEq potassium chloride (KLOR-CON M20) CR tablet 20 mEq 20 mEq, oral, Once, On Sat07/20/24 at 1145, For 1 dose, Tablet may be swallowed whole (do not crush/chew/suck on) OR broken in half and each half swallowed separately OR dissolved (whole tablet) in ~4 ounces of water (allow ~2 minutes to dissolve, stir well and administer immediately). Given 07/20/2024 12:21 PM EST 20 mEq potassium chloride (KLOR-CON M20) CR tablet 40 mEq 40 mEq, oral, Once, On Sat07/20/24 at 0945, For 1 dose, Tablet may be swallowed whole (do not crush/chew/suck on) OR broken in half and each half swallowed separately OR dissolved (whole tablet) in ~4 ounces of water (allow ~2 minutes to dissolve, stir well and administer immediately). Given 07/20/2024 9:43 AM EST 40 mEq potassium chloride (KLOR-CON M20) CR tablet 40 mEq 40 mEq, oral, Once, On Sat07/21/24 at 0915, For 1 dose, Tablet may be swallowed whole (do not crush/chew/suck on) OR broken in half and each half swallowed separately OR dissolved (whole tablet) in ~4 ounces of water (allow ~2 minutes to dissolve, stir well and administer immediately). Given 07/21/2024 10:45 AM EST 40 mEq potassium chloride (KLOR-CON M20) CR tablet 40 mEq 40 mEq, oral, Once, On Sat07/21/24 at 1115, For 1 dose, Tablet may be swallowed whole (do not crush/chew/suck on) OR broken in half and each half swallowed separately OR dissolved (whole tablet) in ~4 ounces of water (allow ~2 minutes to dissolve, stir well and administer immediately). Given 07/21/2024 12:11 PM EST 40 mEq sodium chloride 0.9 % bolus 1,000 mL 1,000 mL, intravenous, at 2,000 mL/hr, Administer over 30 Minutes, Once, On Sat07/18/24 at 2110, For 1 dose New Bag 07/18/2024 9:16 PM EST 1,000 mL 2000 mL/hr sodium chloride 0.9 % infusion 75 mL/hr, intravenous, Continuous, Starting on Sat07/19/24 at 0812 New Bag 07/20/2024 5:41 AM EST 75 mL/hr 75 mL/hr New Bag 07/19/2024 8:56 AM EST 75 mL/hr 75 mL/hr documented in this encounter Active and Recently Administered Medications Times are shown in EST. Scheduled Medication Order 07/19/2024 07/20/2024 07/21/2024 ampicillin-sulbactam (UNASYN) 3 g in sodium chloride 0.9 % 100 mL IVPB 3 g, intravenous, at 200 mL/hr, Administer over 30 Minutes, Every 6 hours, First dose on Sat07/19/24 at 1200, For 7 days, Indication: Pneumonia, Community Acquired 1225 (New Bag - Provider: Randi Leger RN)1256 (Stopped - Provider: Randi Leger RN)1822 (New Bag - Provider: Randi Leger RN)1852 (Stopped - Provider: Adelina Diana RN - Comment: stopped prior to coming to floor) 0013 (New Bag - Provider: Adelina Diana RN)0045 (Stopped - Provider: Adelina Diana RN)0541 (New Bag - Provider: Adelina Diana RN)0640 (Stopped - Provider: Adelina Diana RN)1221 (New Bag - Provider: Laura Ghotra RN)1305 (Stopped - Provider: Laura Ghotra RN)1809 (New Bag - Provider: Laura Ghotra RN)1907 (Stopped - Provider: Laura Ghotra RN) 0025 (New Bag - Provider: Adelina Diana RN)0130 (Stopped - Provider: Adelina Diana RN)0606 (New Bag - Provider: Adelina Diana RN)0638 (Stopped - Provider: Adelina Diana RN)1209 (New Bag - Provider: Luara Ghotra RN)1239 (Stopped - Provider: Laura Ghotra RN)1800 (Canceled Entry - Provider: Automatic Discharge Provider - Comment: Automatically canceled at discontinue of medication order) doxycycline (VIBRAMYCIN) 100 mg in sodium chloride 0.9 % 100 mL IVPB 100 mg, intravenous, at 100 mL/hr, Administer over 60 Minutes, Every 12 hours, First dose on Sat07/19/24 at 1300, For 7 days, Indication: Pneumonia, Community Acquired 1308 (New Bag - Provider: Randi Leger RN)1410 (Stopped - Provider: Randi Leger RN) 0155 (New Bag - Provider: Adelina Diana RN)0255 (Stopped - Provider: Adelina Diana RN)1313 (New Bag - Provider: Laura Ghotra RN)1439 (Stopped - Provider: Laura Ghotra RN) 0157 (New Bag - Provider: Adelina Diana RN)0303 (Stopped - Provider: Adelina Diana RN)1336 (New Bag - Provider: Laura Ghotra RN)1423 (Stopped - Provider: Laura Ghotra RN) enoxaparin (LOVENOX) injection 40 mg 40 mg, subcutaneous, Daily, First dose on Sat07/19/24 at 0900, Indication: VTE/PE Prophylaxis 0855 (Given - Provider: Joel Israel RN) 0913 (Given - Provider: Laura Ghotra RN) 0833 (Given - Provider: Laura Ghotra RN) guaiFENesin (MUCINEX) 12 hr tablet 600 mg 600 mg, oral, Every 12 hours scheduled, First dose on Sat07/19/24 at 1200, Administer with plenty of fluids to ensure proper action. Do not crush, chew, or split. 1224 (Given - Provider: Randi Leger RN)2109 (Given - Provider: Erna Lemon RN) 0913 (Given - Provider: Laura Ghotra, GELY)205 (Given - Provider: Adelina Diana RN) 0833 (Given - Provider: Laura Ghotra RN) levoFLOXacin (LEVAQUIN) IVPB 750 mg 750 mg, intravenous, at 100 mL/hr, Administer over 90 Minutes, Every 48 hours, First dose (after last modification) on Sat07/19/24 at 0900, For 7 days, Indication: Pneumonia, Community Acquired 1017 (New Bag - Provider: Joel Israel RN)1150 (Stopped - Provider: Randi Leger, GELY) 0834 (New Bag - Provider: Laura Ghotra RN)1005 (Stopped - Provider: Laura Ghotra RN) magnesium sulfate 2 gram/50 mL (4 %) IVPB 2 g (COMPLETED) 2 g, intravenous, at 25 mL/hr, Administer over 2 Hours, Once, On Sat07/19/24 at 0814, For 1 dose 0855 (New Bag - Provider: Joel Israel RN)1100 (Stopped - Provider: Randi Leger RN) magnesium sulfate 2 gram/50 mL (4 %) IVPB 2 g (COMPLETED) 2 g, intravenous, at 25 mL/hr, Administer over 2 Hours, Once, On Sat07/20/24 at 0945, For 1 dose 0931 (New Bag - Provider: Laura Ghotra RN)1103 (Stopped - Provider: Laura Ghotra RN) magnesium sulfate 2 gram/50 mL (4 %) IVPB 2 g (COMPLETED) 2 g, intravenous, at 25 mL/hr, Administer over 2 Hours, Once, On Sat07/21/24 at 0915, For 1 dose 0951 (New Bag - Provider: Laura Ghotra RN)1114 (Stopped - Provider: Laura Ghotra RN) nicotine (NICODERM CQ) 7 mg/24 hr 1 patch 1 patch, transdermal, Administer over 24 Hours, Daily, First dose on Sat07/19/24 at 1400 1639 (Patch Applied - Provider: Randi Leger RN) 0859 (Patch Removed - Provider: Laura Ghotra RN)0912 (Patch Applied - Provider: Laura Ghotra RN) 0800 (Patch Removed - Provider: Laura Ghotra RN)0834 (Patch Applied - Provider: Laura Ghotra RN)1609 (Due: Patch Removed - Provider: Automatic Discharge Provider - Comment: Time automatically adjusted from order being discontinued) potassium chloride (KLOR-CON M10) CR tablet 40 mEq (COMPLETED) 40 mEq, oral, Once, On Sat07/19/24 at 0812, For 1 dose, Tablet may be swallowed whole (do not crush/chew/suck on) OR broken in half and each half swallowed separately OR dissolved (whole tablet) in ~4 ounces of water (allow ~2 minutes to dissolve, stir well and administer immediately). 0855 (Given - Provider: Joel Israel RN) potassium chloride (KLOR-CON M20) CR tablet 20 mEq (COMPLETED)(Linked Group 1) 20 mEq, oral, Once, On Sat07/20/24 at 1145, For 1 dose, Tablet may be swallowed whole (do not crush/chew/suck on) OR broken in half and each half swallowed separately OR dissolved (whole tablet) in ~4 ounces of water (allow ~2 minutes to dissolve, stir well and administer immediately). 1221 (Given - Provider: Laura Ghotra RN) potassium chloride (KLOR-CON M20) CR tablet 40 mEq (COMPLETED)(Linked Group 1) 40 mEq, oral, Once, On Sat07/20/24 at 0945, For 1 dose, Tablet may be swallowed whole (do not crush/chew/suck on) OR broken in half and each half swallowed separately OR dissolved (whole tablet) in ~4 ounces of water (allow ~2 minutes to dissolve, stir well and administer immediately). 0943 (Given - Provider: Laura Ghotra RN) potassium chloride (KLOR-CON M20) CR tablet 40 mEq (COMPLETED)(Linked Group 2) 40 mEq, oral, Once, On Sat07/21/24 at 0915, For 1 dose, Tablet may be swallowed whole (do not crush/chew/suck on) OR broken in half and each half swallowed separately OR dissolved (whole tablet) in ~4 ounces of water (allow ~2 minutes to dissolve, stir well and administer immediately). 1045 (Given - Provid er: Laura Ghotra RN) potassium chloride (KLOR-CON M20) CR tablet 40 mEq (COMPLETED)(Linked Group 2) 40 mEq, oral, Once, On Sat07/21/24 at 1115, For 1 dose, Tablet may be swallowed whole (do not crush/chew/suck on) OR broken in half and each half swallowed separately OR dissolved (whole tablet) in ~4 ounces of water (allow ~2 minutes to dissolve, stir well and administer immediately). 1211 (Given - Provid er: Laura Ghotra RN) Continuous Medication Order 07/19/2024 07/20/2024 07/21/2024 sodium chloride 0.9 % infusion (CANCELED) 75 mL/hr, intravenous, Continuous, Starting on Sat07/19/24 at 0812 0856 (New Bag - Provider: Joel Israel RN) 0541 (New Bag - Provider: Adelina Diana RN)0959 (Stopped - Provider: Laura Ghotra RN) PRN Medication Order 07/19/2024 07/20/2024 07/21/2024 acetaminophen (TYLENOL) tablet 650 mg 650 mg, oral, Every 6 hours PRN, mild pain, moderate pain, headaches, fever - temperature GREATER than 38 C (100.4 F), Starting on 07/18/24 at 2153 1307 (Given - Provider: Randi Leger, GELY) dextromethorphan-guaiFENesin (ROBITUSSIN-DM) 10-100 mg/5 mL syrup 5 mL 5 mL, oral, Every 4 hours PRN, cough, congestion, Starting on 07/18/24 at 2307 0216 (Given - Provider: Lucinda Candelario RN) dextrose (D50W) 50% injection 12.5 g 12.5 g, intravenous, Every 15 min PRN, low blood sugar, moderate hypoglycemia *Patient is Unconscious, NPO, unable to swallow: BG 54 - 69 mg/dl*, Starting on Sat07/20/24 at 0912 dextrose (D50W) 50% injection 25 g 25 g, intravenous, Every 15 min PRN, low blood sugar, severe hypoglycemia *Patient is Unconscious, NPO, unable to swallow: BG LESS than 54 mg/dL*, Starting on Sat07/20/24 at 0912 dextrose 15 gram/60 mL oral solution 15 g 15 g, oral, Every 15 min PRN, low blood sugar, hypoglycemia *Patient conscious AND able to drink and swallow safely*, Starting on Sat07/20/24 at 0912 dextrose 15 gram/60 mL oral solution 30 g 30 g, oral, Every 15 min PRN, low blood sugar, hypoglycemia *Patient conscious AND able to drink and swallow safely*, Starting on Sat07/20/24 at 0912 Glucagon HCl (rDNA) injection 1 mg 1 mg, intramuscular, Once as needed, low blood sugar, severe hypoglycemia, Starting on Sat07/20/24 at 0912, For 1 dose ipratropium-albuteroL (DUONEB) 0.5-2.5 mg/3 mL nebulizer solution 3 mL 3 mL, nebulization, Every 6 hours PRN, wheezing, shortness of breath, Starting on 07/18/24 at 2302 0104 (Given - Provider: Luicnda Candelario RN)1228 (Given - Provider: Randi Leger, GELY) Linked Groups Order Group 1: potassium chloride (KLOR-CON M20) CR tablet 40 mEq (COMPLETED)Jump to med 40 mEq, oral, Once, On Sat07/20/24 at 0945, For 1 dose, Tablet may be swallowed whole (do not crush/chew/suck on) OR broken in half and each half swallowed separately OR dissolved (whole tablet) in ~4 ounces of water (allow ~2 minutes to dissolve, stir well and administer immediately). Followed by potassium chloride (KLOR-CON M20) CR tablet 20 mEq (COMPLETED)Jump to med 20 mEq, oral, Once, On Sat07/20/24 at 1145, For 1 dose, Tablet may be swallowed whole (do not crush/chew/suck on) OR broken in half and each half swallowed separately OR dissolved (whole tablet) in ~4 ounces of water (allow ~2 minutes to dissolve, stir well and administer immediately). Group 2: potassium chloride (KLOR-CON M20) CR tablet 40 mEq (COMPLETED)Jump to med 40 mEq, oral, Once, On Sat07/21/24 at 0915, For 1 dose, Tablet may be swallowed whole (do not crush/chew/suck on) OR broken in half and each half swallowed separately OR dissolved (whole tablet) in ~4 ounces of water (allow ~2 minutes to dissolve, stir well and administer immediately). Followed by potassium chloride (KLOR-CON M20) CR tablet 40 mEq (COMPLETED)Jump to med 40 mEq, oral, Once, On Sat07/21/24 at 1115, For 1 dose, Tablet may be swallowed whole (do not crush/chew/suck on) OR broken in half and each half swallowed separately OR dissolved (whole tablet) in ~4 ounces of water (allow ~2 minutes to dissolve, stir well and administer immediately). documented in this encounter Orders Medications Ordered That Ace ht Not Have Been Administered Count Last Ordered Date First Ordered Date dextrose (D50W) 50% injection 12.5 g 1 06/23 dextrose (D50W) 50% injection 25 g 1 2023 dextrose 15 gram/60 mL oral solution 15 g 1 07/20/2024 dextrose 15 gram/60 mL oral solution 30 g 1 07/20/2024 Glucagon HCl (rDNA) injection 1 mg 1 2023 levoFLOXacin (LEVAQUIN) IVPB 750 mg 1 07/18 Lab Orders Without Results Count Last Ordered D ate First Ordered Date POCT GLUCOSE, BLOOD 6 07/21/2024 07/20/20 24 Nursing Count Last Ordered Date First Orde red Date DISCHARGE INSTRUCTIONS 1 07/21/2024 FOLLOW UP PRIMARY PHYSICIAN 1 07/21/2024 FOLLOW UP WITH PROVIDER 1 07/21/2024 Consult Count Last Ordered Date First Orde red Date POST ACUTE HOME HEALTH CARE REQUEST 1 07/21 IP CONSULT TO NUTRITION SERVICES 1 07/19/20 Respiratory Care Count Last Ordered Date First Ordered Date HOME O2 EVAL (DESATURATION SCREEN) 1 2023 PEP THERAPY 4 07/19/2024 Admission Count Last Ordered Date First Orde red Date ADMIT TO INPATIENT 1 07/19/2024 INITIATE OBS ADM REQ 1 07/18/2024 Transfer Count Last Ordered Date First Orde red Date ED TO FLOOR BED REQUEST 1 07/18/2024 Discharge Count Last Ordered Date First Orde red Date DISCHARGE PATIENT 1 07/21/2024 documented in this encounter Additional Health Concerns Infection Onset Date Last Indicated Resolved Time Respiratory Rule-Out 07/18/2024 07/18/2024 024 12:59 AM EST COVID-19 Rule-Out 07/18/2024 07/18/2024 07/19/2024 12:59 AM EST Respiratory Rule-Out 07/19/2024 07/19/2024 025 6:07 AM EST documented as of this encounter Care Teams Tie Layer Relationship Specialty Start Date End Date Marek Sullivan MD [address] [place] [address] [address] [place] PCP - General Internal Medicine 07/18/24 documented as of this encounter
--- OUTSIDE RECORDS SUMMARY | 2024-08-18 11:20 | XMS_ITS | Clinical Summary ---
Author Organization Unknown Care Team Providers Care Transport Manager Name Role Phone IVANIA BUSINESS CONTINUITY PLANNING DIRECTOR, JF Unavailable Unavailable YANELIS RN, ADMISSION NURSE, FLAKITA Unavail able Unavailable Payers Payer Name Policy Type Policy Number Effective Date Expira tion Date MEDICARE - [place] [id number] Problems Condition Name Condition Details Condition Category Status Onset Date Resolution Date Last Treatment Date Treating Clinician Comments OTHER PNEUMONIA, UNSPECIFIED ORGANISM Active 07-22 00:00: 00 EMPHYSEMA, UNSPECIFIED Active 07-22 00:00: 00 NICOTINE DEPENDENCE, CIGARETTES, UNCOMPLICATE D Active 07-22 00:00: 00 Problems related to health literacy Active 07-22 00:00: 00 PNEUMONIA DUE TO OTHER SPECIFIED INFECTIOUS ORGANISMS Active 2023-07 00:00: 00 Allergies, Adverse Reactions, Alerts Allergy Name Allergy Type Status Severity Reaction(s) Onset Date Inactive Date Treating Clinician Comments SULFA ANTIBIOTIC Propensity to adverse reactions Active 07-27 06:27: 09 Medications Ordered Medication Name Filled Medication Name Start Date Stop Date Current Medication? Ordering Clinician Indication Dosage Frequency Signature (SIG) Comments Components albuterol sulfate HFA 90 mcg/actuati on aerosol inhaler - 00:00: 00 Yes [id number] 2 puff EVERY 4 HOURS 2 puff EVERY 4 HOURS (route: inhalation ) Med Classific ation: Respirato ry Therapy Agents doxycycline hyclate 100 mg capsule 2023-07 00:00: 00 07-26 23:59 :00 No [id number] 1 capsule 2 TIMES DAILY 1 capsule 2 TIMES DAILY (route: oral) Med Classific ation: Anti-Infe ctive Agents levofloxaci n 750 mg tablet 2023-07 00:00: 00 07-26 23:59 :00 No [id number] 1 tablet DAILY 1 tablet DAILY (route: oral) Med Classific ation: Anti-Infe ctive Agents nicotine 7 mg/24 hr daily transdermal patch 07-24 00:00: 00 Yes [id number] 1 patch, transde rmal 24 hours DAILY 1 patch, transderma l 24 hours DAILY (route: transderma l) Med Classific ation: Chemical Dependenc y, Agents to Treat potassium chloride ER 10 mEq tablet,exte nded release 2023-07 00:00: 00 07-26 23:59 :00 No [id number] 4 tablet DAILY 4 tablet DAILY (route: oral) Med Classific ation: Electroly te Balance-N utritiona l Products Tussin Cough (DM only) 15 mg/5 mL oral liquid 2023-07 00:00: 00 Yes [id number] Per instruc tions O2 - PRN Per instructio ns O2 - PRN (route: oral) Med Classific ation: Respirato ry Therapy Agents Immunizations Ordered Immunization Name Filled Immunization Name Date Status Comments Refusal Reason COVID-19, COVID-19 2022-06-08 00:00:00 Vital Signs Vital Name Observation Time Observation Value Commen ts Temperature 2024-08-12 09:34:00.000 97.4 [degF] Temperature 2024 11:33:00.000 97.7 [degF] Temperature 2024-07-30 09:49:00.000 99.7 [degF] Temperature 2024-07-24 10:12:00.000 99.7 [degF] BMI (%) 2024-07-24 10:12:00.000 17 kg/m2 Height 2024-07-24 10:12:00.000 64 [in_us] Pulse 2024-08-12 09:33:00.000 72 /min Pulse 2024 11:33:00.000 90 /min Pulse 2024-07-30 09:49:00.000 102 /min Pulse 2024-07-24 10:12:00.000 90 /min O2 Saturation (%) 2024-08-12 09:33:00.000 96 % O2 Saturation (%) 2024 11:33:00.000 93 % O2 Saturation (%) 2024-07-30 09:49:00.000 92 % O2 Saturation (%) 2024-07-24 10:12:00.000 93 % Respirations 2024 11:33:00.000 18 /min Respirations 2024-07-30 09:49:00.000 18 /min Respirations 2024-07-24 10:12:00.000 18 /min Weight (lbs) 2024-07-24 10:12:00.000 100 [lb_av] Systolic Blood Pressure 2024-08-12 09:33:00.000 120 mm [Hg] Systolic Blood Pressure 2024 11:33:00.000 126 mm [Hg] Systolic Blood Pressure 2024-07-30 09:49:00.000 126 mm [Hg] Systolic Blood Pressure 2024-07-24 10:12:00.000 120 mm [Hg] Diastolic Blood Pressure 2024-08-12 09:33:00.000 72 mm [Hg] Diastolic Blood Pressure 2024 11:33:00.000 88 mm [Hg] Diastolic Blood Pressure 2024-07-30 09:49:00.000 70 mm [Hg] Diastolic Blood Pressure 2024-07-24 10:12:00.000 60 mm [Hg] Plan of Treatment Planned Activity Planned Date Details Comments Future Scheduled Test SKILLED NU RSE TO EVALUATE PATIENT, IDENTIFY PRIMARY AND CO-MORBID CONDITIONS CODED PER CODING GUIDELINES, AND DEVELOP PATIENT SPECIFIC PLAN OF CARE THAT INCLUDES PATIENT GOAL FOR HOME HEALTH. [code = SKILLED NURSE TO EVALUATE PATIENT, IDENTIFY PRIMARY AND CO-MORBID CONDITIONS CODED PER CODING GUIDELINES, AND DEVELOP PATIENT SPECIFIC PLAN OF CARE THAT INCLUDES PATIENT GOAL FOR HOME HEALTH.] Future Scheduled Test SKILLED NU RSE TO REVIEW PATIENT MEDICATIONS. INSTRUCT PATIENT/CAREGIVER ON MONITORING OF EFFECTIVENESS, ADVERSE DRUG REACTIONS, SIDE EFFECTS OF ALL MEDICATIONS (PRESCRIPTION/-OTC), AND HOW AND WHEN TO REPORT PROBLEMS. [code = SKILLED NURSE TO REVIEW PATIENT MEDICATIONS. INSTRUCT PATIENT/CAREGIVER ON MONITORING OF EFFECTIVENESS, ADVERSE DRUG REACTIONS, SIDE EFFECTS OF ALL MEDICATIONS (PRESCRIPTION/-OTC), AND HOW AND WHEN TO REPORT PROBLEMS.] Future Scheduled Test MEDICAL SO CIAL WORKER TO EVALUATE PATIENT FOR SECONDARY INSURANCE EDUCATION [code = INVESTMENT FUND MANAGER TO EVALUATE PATIENT FOR SECONDARY INSURANCE EDUCATION ] Future Scheduled Test SKILLED NU RSE FOR O/A OF RESPIRATORY SYSTEM TO IDENTIFY CHANGES ASSOCIATED WITH EXACERBATION AND TO PROVIDE SKILLED TEACHING ON MANAGEMENT OF EMPHYSEMA RESPIRATORY DISEASE PROCESS. [code = SKILLED NURSE FOR O/A OF RESPIRATORY SYSTEM TO IDENTIFY CHANGES ASSOCIATED WITH EXACERBATION AND TO PROVIDE SKILLED TEACHING ON MANAGEMENT OF EMPHYSEMA RESPIRATORY DISEASE PROCESS.] Future Scheduled Test SKILLED NU RSE FOR O/A AND SKILLED TEACHING RELATED TO SIGNS AND SYMPTOMS OF INFECTION AND INFECTION CONTROL MEASURES. [code = SKILLED NURSE FOR O/A AND SKILLED TEACHING RELATED TO SIGNS AND SYMPTOMS OF INFECTION AND INFECTION CONTROL MEASURES.] Future Scheduled Test PATIENT KAMARA S A RISK OF HOSPITALIZATION AND ED USE. SKILLED NURSE TO ESTABLISH SUPPORT MEASURES TO MINIMIZE RISK OF HOSPITALIZATION AND ED USE, AND INSTRUCT PATIENT/CAREGIVER ON METHODS TO REDUCE AVOIDABLE HOSPITALIZATION AND ED USE. [code = PATIENT HAS A RISK OF HOSPITALIZATION AND ED USE. SKILLED NURSE TO ESTABLISH SUPPORT MEASURES TO MINIMIZE RISK OF HOSPITALIZATION AND ED USE, AND INSTRUCT PATIENT/CAREGIVER ON METHODS TO REDUCE AVOIDABLE HOSPITALIZATION AND ED USE.] Future Scheduled Test SKILLED NU RSE TO PROVIDE INSTRUCTION TO PATIENT/CAREGIVER RELATED TO DISCHARGE PLANNING. [code = SKILLED NURSE TO PROVIDE INSTRUCTION TO PATIENT/CAREGIVER RELATED TO DISCHARGE PLANNING.] Future Scheduled Test SKILLED NU RSE TO PERFORM ENVIRONMENTAL SAFETY RISK ASSESSMENT AND FALL RISK ASSESSMENT AND PROVIDE INSTRUCTION TO IMPLEMENT ENVIRONMENTAL SAFETY AND FALL PREVENTION STRATEGIES THROUGHOUT THE CERTIFICATION PERIOD. SKILLED NURSE WILL MAINTAIN SITUATIONAL AWARENESS AND WILL NOTIFY CLINICAL PROGRAMMING COORDINATOR AND PHYSICIAN/PROVIDER WITH ANY CHANGE IN CONDITION. [code = SKILLED NURSE TO PERFORM ENVIRONMENTAL SAFETY RISK ASSESSMENT AND FALL RISK ASSESSMENT AND PROVIDE INSTRUCTION TO IMPLEMENT ENVIRONMENTAL SAFETY AND FALL PREVENTION STRATEGIES THROUGHOUT THE CERTIFICATION PERIOD. SKILLED NURSE WILL MAINTAIN SITUATIONAL AWARENESS AND WILL NOTIFY CLINICAL PROGRAMMING COORDINATOR AND PHYSICIAN/PROVIDER WITH ANY CHANGE IN CONDITION.] Future Scheduled Test SKILLED NU RSE FOR OBSERVATION AND ASSESSMENT OF PATIENTS PAIN LEVEL AND EFFECTIVENESS OF PAIN MANAGEMENT REGIMEN. SKILLED NURSE TO INSTRUCT PATIENT/CAREGIVER REGARDING PHARMACOLOGIC AND NON-PHARMACOLOGIC PAIN CONTROL MEASURES. SKILLED NURSE TO REPORT TO PHYSICIAN IF PAIN IS UNCONTROLLED WITH CURRENT PAIN MANAGEMENT REGIMEN. [code = SKILLED NURSE FOR OBSERVATION AND ASSESSMENT OF PATIENTS PAIN LEVEL AND EFFECTIVENESS OF PAIN MANAGEMENT REGIMEN. SKILLED NURSE TO INSTRUCT PATIENT/CAREGIVER REGARDING PHARMACOLOGIC AND NON-PHARMACOLOGIC PAIN CONTROL MEASURES. SKILLED NURSE TO REPORT TO PHYSICIAN IF PAIN IS UNCONTROLLED WITH CURRENT PAIN MANAGEMENT REGIMEN.] Future Scheduled Test SKILLED NU RSE TO ASSESS PATIENT'S SKIN INTEGRITY AND INSTRUCT PATIENT/CAREGIVER ON MEASURES TO PREVENT PRESSURE ULCERS. [code = SKILLED NURSE TO ASSESS PATIENT'S SKIN INTEGRITY AND INSTRUCT PATIENT/CAREGIVER ON MEASURES TO PREVENT PRESSURE ULCERS.] Future Scheduled Test [facility]ICAL [facility] FOR EVALUATION TO ASSESS SOCIAL AND EMOTIONAL FACTORS RELATED TO THE PATIENT'S ILLNESS, NEED FOR CARE, RESPONSE TO TREATMENT AND ADJUSTMENT TO CARE; TO BE FOLLOWED BY COLLABORATION WITH THE PHYSICIAN AND NURSE TO DEVELOP A PLAN OF CARE SUMMARY OF ROTARY SURFACE GRINDER EVAL/ASSESSMENT FINDINGS AND REASON(S) COLD ROLL OPERATOR IS INDICATED: ROTARY SURFACE GRINDER EVALUATION: MAAME IS A 68 YEAR OLD MALE REFERRED TO [facility] FOLLOWING HOSPITALIZATION FOR R LOBE. ROTARY SURFACE GRINDER FACILITATED COMMUNITY RESOURCE ASSESSMENT AND LTC PLANNING ASSESSMENT. WAS PRESENT DURING VISIT. ENVIRONMENT: MAAME LIVES IN A SINGLE FAMILY HOME WITH HIS . MAAME FEELS VERY SUPPORTED BY HIS AND SHE ASSISTS WITH ALL HOMEMAKING NEEDS. THEY DO NOT WANT ANY FURTHER HELP WITH HOMEMAKING SERVICES. ANNEMARIE TAKES HIM TO ALL APPOINTMENTS. HANDLES FINANCES WELL. MAAME HAS ADVANCED DIRECTIVES IN PLACE. PRESENTATION: MAAME IS ALERT AND ORIENTED X4. MAAME WAS PLEASANT DURING VISIT. ANNEMARIE MOOD IS STABLE AND NO SYMPTOMS OF DEPRESSION AND ANXIETY PRESENT. MAAME HAS NO CURRENT ETOH OR SUBSTANCE ABUSE ISSUES. HE IS CURRENT SMOKER. INTERVENTION: ANNEMARIE MAIN CONCERN AT THIS TIME IS INSURANCE. HE REPORTS HE HAS MEDICARE BUT NO OTHER SUPPLEMENTAL INSURANCE. MAAME MAY POSSIBLY QUALIFY FOR [employer]. ROTARY SURFACE GRINDER PLANS TO COMPLETE APPLICATION WITH PATIENT ON NEXT VISIT. ROTARY SURFACE GRINDER WILL FOLLOW UP 2 X FOR FURTHER RESOURCE SUPPORT. MEDICAL AUTO BODY REPAIR ESTIMATOR FOR COMMUNITY RESOURCE PLANNING. [code = MEDICAL AUTO BODY REPAIR ESTIMATOR FOR EVALUATION TO ASSESS SOCIAL AND EMOTIONAL FACTORS RELATED TO THE PATIENT'S ILLNESS, NEED FOR CARE, RESPONSE TO TREATMENT AND ADJUSTMENT TO CARE; TO BE FOLLOWED BY COLLABORATION WITH THE PHYSICIAN AND NURSE TO DEVELOP A PLAN OF CARE SUMMARY OF ROTARY SURFACE GRINDER EVAL/ASSESSMENT FINDINGS AND REASON(S) COLD ROLL OPERATOR IS INDICATED: ROTARY SURFACE GRINDER EVALUATION: MAAME IS A 68 YEAR OLD MALE REFERRED TO [facility] FOLLOWING HOSPITALIZATION FOR R LOBE. ROTARY SURFACE GRINDER FACILITATED COMMUNITY RESOURCE ASSESSMENT AND LTC PLANNING ASSESSMENT. WAS PRESENT DURING VISIT. ENVIRONMENT: MAAME LIVES IN A SINGLE FAMILY HOME WITH HIS . MAAME FEELS VERY SUPPORTED BY HIS AND SHE ASSISTS WITH ALL HOMEMAKING NEEDS. THEY DO NOT WANT ANY FURTHER HELP WITH HOMEMAKING SERVICES. ANNEMARIE TAKES HIM TO ALL APPOINTMENTS. HANDLES FINANCES WELL. MAAME HAS ADVANCED DIRECTIVES IN PLACE. PRESENTATION: MAAME IS ALERT AND ORIENTED X4. MAAME WAS PLEASANT DURING VISIT. ANNEMARIE MOOD IS STABLE AND NO SYMPTOMS OF DEPRESSION AND ANXIETY PRESENT. MAAME HAS NO CURRENT ETOH OR SUBSTANCE ABUSE ISSUES. HE IS CURRENT SMOKER. INTERVENTION: ANNEMARIE MAIN CONCERN AT THIS TIME IS INSURANCE. HE REPORTS HE HAS MEDICARE BUT NO OTHER SUPPLEMENTAL INSURANCE. MAAME MAY POSSIBLY QUALIFY FOR [employer]. ROTARY SURFACE GRINDER PLANS TO COMPLETE APPLICATION WITH PATIENT ON NEXT VISIT. ROTARY SURFACE GRINDER WILL FOLLOW UP 2 X FOR FURTHER RESOURCE SUPPORT. MEDICAL AUTO BODY REPAIR ESTIMATOR FOR COMMUNITY RESOURCE PLANNING.] Goal Patient Goal - TO FEEL FAUSTO R Goal Provider Goal - A PLAN OF CARE WILL BE ESTABLISHED THAT MEETS PATIENT'S HALFWAY NEEDS AND INCLUDES PATIENT GOAL FOR HOME HEALTH. Goal Provider Goal - PATIENT/CAREGIVER WILL VERBALIZE UNDERSTANDING OF EDUCATION PROVIDED ON MEDICATIONS BY THE END OF THE CERTIFICATION PERIOD. Goal Provider Goal - INVESTMENT FUND MANAGER TO COMPLETE EVALUATION TO ADDRESS THE PATIENTS SOCIAL AND EMOTIONAL FACTORS AND/OR WRITTEN PLAN OF TREATMENT ESTABLISHED FOR THE PHYSICIAN'S SIGNATURE. Goal Provider Goal - PATIENT/CAREGIVER WILL VERBALIZE/DEMONSTRATE MANAGEMENT OF EMPHYSEMA RESPIRATORY DISEASE PROCESS. CHANGES IN RESPIRATORY STATUS WILL BE IDENTIFIED AND REPORTED TO PHYSICIAN FOR PROMPT INTERVENTION THROUGHOUT THE CERTIFICATION PERIOD. Goal Provider Goal - PATIENT/CAREGIVER WILL VERBALIZE/DEMONSTRATE UNDERSTANDING OF S/S OF INFECTION AND INFECTION CONTROL MEASURES. SIGNS AND SYMPTOMS OF INFECTION WILL BE IDENTIFIED AND PHYSICIAN NOTIFIED FOR PROMPT INTERVENTION THROUGHOUT THE CERTIFICATION PERIOD. Goal Provider Goal - PATIENT WILL HAVE SUPPORT MEASURES ESTABLISHED TO PREVENT HOSPITALIZATION AND ED USE AND PATIENT/CAREGIVER WILL VERBALIZE/DEMONSTRATE METHODS TO REDUCE AVOIDABLE HOSPITALIZATION AND ED USE BY END OF EPISODE. Goal Provider Goal - PATIENT/CAREGIVER WILL VERBALIZE UNDERSTANDING OF DISCHARGE PLANNING INSTRUCTIONS BY DATE OF DISCHARGE. Goal Provider Goal - PATIENT/CAREGIVER WILL VERBALIZE/DEMONSTRATE EFFECTIVE ENVIRONMENTAL SAFETY AND FALL PREVENTION STRATEGIES, WILL REMAIN SAFE IN THE COMMUNITY, AND WILL BE FREE OF DANGER TO SELF AND OTHERS THROUGHOUT THE CERTIFICATION PERIOD. Goal Provider Goal - PATIENT/CAREGIVER WILL DEMONSTRATE UNDERSTANDING OF PHARMACOLOGIC AND NONPHARMACOLOGIC PAIN CONTROL MEASURES AND PATIENT WILL HAVE IMPROVEMENT IN PAIN INTERFERING WITH ACTIVITY EVIDENCED BY PAIN CONTROLLED AT LEVEL OF 7 OR LESS BY END OF CERTIFICATION PERIOD. Goal Provider Goal - PATIENT/CAREGIVER WILL VERBALIZE UNDERSTANDING OF PRESSURE ULCER PREVENTION BY END OF THE EPISODE. Goal Provider Goal - A MEDICAL AUTO BODY REPAIR ESTIMATOR CONSULT PRN WILL BE COMPLETED FOR THE ENHANCEMENT OF THE PATIENT'S SOCIAL AND EMOTIONAL FACTORS, NEED FOR CARE, RESPONSE TO TREATMENT AND ADJUSTMENT TO CARE, TO FOSTER INDEPENDENT LIVING AT HOME USING COMMUNITY RESOURCES, INCREASED FAMILY INVOLVEMENT OR BOTH WITHIN 2 WEEKS. PATIENT/CAREGIVER WILL VERBALIZE/DEMONSTRATE EFFECTIVE COMMUNITY RESOURCE PLANNING, EVIDENCED BY ACCEPTANCE OF ASSISTANCE FROM THOSE SERVICES FOR WHICH THEY ARE ELIGIBLE, EXTENDING THE PERIOD OF INDEPENDENCE IN THE HOME. Progress Notes Progress Notes <paragraph>[Visit Date: 2024 by DESHAWN TOWNSEND LPN]:</paragraph><paragraph>SNV 08/12 ABNORMAL VITALS: WITHIN ESTABLISHED PARAMETERS FALLS: NO FALLS MEDICATION CHANGES: NONE OBSERVATION AND ASSESSMENT PROVIDED: PT ALERT ORIENTEDX 4, COOPERATIVE DURING VISIT. PT REPORTS FEELING BETTER, LESS SOB THEN HE WAS INITIALL, HAS NOT NEEDED TO USE RESCUE INHALERS. PT WAS SEEN VIA [facility] FOR H[facility]ITAL F/U 2 WEEKS AGO. NO MEDICATION CHANGES. PT IS NO LONGER USING NICOTINE PATCH AND HAS QUIT SMOKING. VSS, LS CLEAR, SPEAKS IN FULL SENTENCES, NAD NOTED. NO ISSUES WITH BOWELS OR BLADDER. APPETITE ADEQUATE. EDUCATION: DEEP BREATHING, H2O HYDRATION INTERVENTIONS NEEDED AT NEXT VISIT: ASSESSMENT TEACHING COMMUNICATION WITH MD: NOT NEEDED AT THIS VISIT NEXT MD APPOINTMENT: OCTOBER 27 2024 PT AND CAREGIVER INSTRUCTED TO CALL [facility] WITH ANY QUESTIONS OR CONCERNS AND/OR CHANGES IN CONDITION, STATE UNDERSTANDING</paragraph> Encounters Start Date/Time End Date/Time Encounter Type Admission Type Attending Clinicians Care Facility Care Department Encounter ID Discharge Date Discharge Status Discharge Condition Discharge Reason Percent Goals Met 2024-07-24 00:00:00 2024-09-21 00:00:00 Outpatient NEW ADMISSION FLAKITA [facility]ILAR[facility] [id number] [id number]
--- OUTSIDE RECORDS SUMMARY | 2024-08-18 11:20 | XMS_ITS | Clinical Summary ---
Author Organization [facility] Address [address] [place] [address] Phone Care Team Providers Care Android Programmer Name Role Phone Marek Sullivan MD Primary Care Provider Allergies Active Allergy Reactions Criticality Noted Date Comments Sulfa (Sulfonamide Antibiotics) 06/22 Medications Medication Sig Dispensed Refills Start Date End Date Status dextromethorphan-g uaiFENesin (ROBITUSSIN-DM) 10-100 mg/5 mL syrup Take 10 mL by mouth every 4 (four) hours if needed for cough. 240 mL 07/21/2024 Active nicotine (NICODERM CQ) 7 mg/[address] 1 patch on the skin 1 (one) time each day for 14 days. 14 each 07/22/2024 Active albuterol HFA (ProAir HFA) 90 mcg/actuation inhaler Inhale 2 puffs by mouth every 4 (four) hours if needed for wheezing or shortness of breath. 8.5 g 07/21/2024 07/21/2025 Active doxycycline (VIBRAMYCIN) 100 mg capsule Take 1 [...] and administer immediately). 10 tablet 07/21/2024 07/26/2024 Active Problems Problem Noted Date Diagnosed Date Dyspnea, unspecified type 07/19/2024 Resolved Problems Problem Noted Date Diagnosed Date Resolved Date SOB (shortness of breath) 07/18/2024 Encounters Date Type Department Care Team Description 07/18/2024 8:24 PM EST - 07/21/2024 4:09 PM EST Hospital Encounter [facility] [address] [place] [id number] Karyna Garza DO Ishtiaq, Rizwan, MD Surendran, Anupama, MD Kela, Kashyap Devendrabhai, MD Zipagan, James T, MD Dyspnea, unspecified type (Primary Dx); Pneumonia of right middle lobe due to infectious organism; Hypokalemia Discharge Disposition: Home or Self Care from Last 3 Months Social History Tobacco Use Types Packs/Day Years [...] file Not on file Not on file Obstetrics History Last Filed Vital Signs Vital Sign Reading [...] Mass Index 16.82 07/19/2024 8:52 PM EST Plan of Treatment Health Maintenance Due Date Last Done Comments Pneumococcal Vaccine: 65+ Years (1 of 2 - PCV) 1962 DTaP,Tdap,and Td Vaccines (1 - Tdap) 1975 Hepatitis A Vaccines (1 of 2 - Risk 2-dose series) 1975 Zoster Vaccines (1 of 2) 2006 COVID-19 Vaccine ( - season) 2024 06/08/2022, 06/09/2021, 10/20/2020, Additional history exists Influenza Vaccine (#1) 2024 , 06/09/2021, 06/11/2017 Abdominal Aortic Aneurysm (AAA) Screen 07/18/2024 Cholesterol Screening (Lipid Panel) 07/18/2024 Colorectal Cancer Screening: Colonoscopy 07/18/2024 Depression Screening 07/18/2024 Hepatitis C Screening 07/18/2024 Medicare Annual Wellness Visit 07/18/2024 Social Influencers of Health Screening 07/18/2024 Falls Risk Assessment 07/21/2025 07/21/2024 RSV Immunization Patients 60+ Years Old (1 - 1-dose 75+ series) 2031 HIB Vaccines Aged Out No longer eligi ble based on patient's age to complete this topic HPV Vaccines Aged Out No longer eligi ble based on patient's age to complete this topic Hepatitis B Vaccines Aged Out No long er eligible based on patient's age to complete this topic IPV Vaccines Aged Out No longer eligi ble based on patient's age to complete this topic MMR Vaccines Aged Out No longer eligi ble based on patient's age to complete this topic Meningococcal ACWY Vaccine Aged Out N o longer eligible based on patient's age to complete this topic RSV Immunization Patients Under 20 months Aged Out No longer eligible based on patient's age to complete this topic Varicella Vaccines Aged Out No longer eligible based on patient's age to complete this topic Procedures Procedure Name Priority Date/Time Associated Diagnosis Comments HOME O2 EVAL (DESATURATION SCREEN) Routine 07/21/2024 12:37 PM EST POCT GLUCOSE BLOOD Routine 07/21/2024 11 :12 AM EST POCT GLUCOSE BLOOD Routine 07/21/2024 8: 30 AM EST POCT GLUCOSE BLOOD Routine 07/21/2024 8: 03 AM EST HEPATIC FUNCTION PANEL Add-On 7:40 AM EST PROCALCITONIN Add-On 07/21/2024 7:40 AM EST CBC WITH AUTO DIFFERENTIAL Routine 07/21/2024 7:40 AM EST CORTISOL Routine 07/21/2024 7:40 AM EST INSULIN, FASTING Routine 07/21/2024 7:40 AM EST C-PEPTIDE Routine 07/21/2024 7:40 AM EST MAGNESIUM Timed 07/21/2024 7:40 AM EST CBC AND DIFFERENTIAL Routine 07/21/2024 7:40 AM EST BASIC METABOLIC PANEL Routine 07/21/2024 7:40 AM EST POCT GLUCOSE BLOOD Routine 07/20/2024 8: 23 PM EST POCT GLUCOSE BLOOD Routine 07/20/2024 4: 47 PM EST POCT GLUCOSE BLOOD Routine 07/20/2024 3: 57 PM EST POCT GLUCOSE BLOOD Routine 07/20/2024 11 :10 AM EST POCT GLUCOSE BLOOD Routine 07/20/2024 9: 38 AM EST MANUAL DIFFERENTIAL - SYSMEX WAM Routine 07/20/2024 6:06 AM EST THYROID STIMULATING HORMONE Add-On 07/20/2024 6:06 AM EST HIV 1, 2 ANTIBODY, P24 ANTIGEN WITH REFLEX TO DIFFERENTIATION Add-On 07/20/2024 6:06 AM EST CBC WITH AUTO DIFFERENTIAL Routine 07/20/2024 6:06 AM EST MAGNESIUM Timed 07/20/2024 6:06 AM EST CBC AND DIFFERENTIAL Routine 07/20/2024 6:06 AM EST BASIC METABOLIC PANEL [...] SYSMEX WAM Routine 07/19/2024 4:47 AM EST HEPATIC FUNCTION PANEL STAT Add-on 4:47 AM EST CBC WITH AUTO DIFFERENTIAL Routine 07/19/2024 4:47 AM EST MAGNESIUM Routine 07/19/2024 4:47 AM EST BASIC METABOLIC PANEL Routine 07/19/2024 4:47 AM EST CBC AND DIFFERENTIAL Routine 07/19/2024 4:47 AM EST MYCOPLASMA PNEUMONIAE ANTIBODY IGM Routine 07/19/2024 4:47 AM EST ECG ANNOTATED 07/19/2024 RESPIRATORY VIRUS PANEL MOLECULAR STUDY Routine 07/18/2024 11:54 PM EST LEGIONELLA ANTIGEN URINE, EIA Routine 07/18/2024 10:24 PM EST TROPONIN I HIGH SENSITIVITY STAT 07/18/2024 9:36 PM EST XR CHEST 1 VIEW STAT 07/18/2024 9:29 PM EST ECG 12-LEAD Routine 07/18/2024 9:25 PM EST MANUAL DIFFERENTIAL - SYSMEX WAM STAT 07/18/2024 8:38 PM EST CBC WITH AUTO DIFFERENTIAL STAT 07/18/2024 8:38 PM EST TROPONIN I HIGH SENSITIVITY STAT 07/18/2024 8:38 PM EST B-TYPE NATRIURETIC PEPTIDE STAT 07/18/2024 8:38 PM EST BASIC METABOLIC PANEL STAT 07/18/2024 8:38 PM EST CBC AND DIFFERENTIAL STAT 07/18/2024 8:38 PM EST ECG 12-LEAD STAT 07/18/2024 8:17 PM EST from Last 3 Months Results * (ABNORMAL) POCT Glucose, blood (07/21/2024 11:12 AM EST) Only the most recent of8 resultswithin the time period is included. Glucose POCT 182(H) 70 - 100 mg/dL 07/21/2024 11:12 AM EST [facility] Blood Capillary blood specimen / Unknown 07/21/2024 11:12 AM EST 07/21/2024 11:13 AM EST Robin Soto MD LAB POINT OF CARE TE ST DOCKED DEVICE UNSOLICITED RESULTS Performing Organization Address City/[facility]/ZIP Co de Phone Number [facility] [address] [place] [address], [place] [phone] * (ABNORMAL) Procalcitonin (07/21/2024 7:40 AM EST) Procalcitonin 6.46(H) <=0.16 ng/mL LAB CHEMISTRY METHOD 07/21/2024 12:31 PM EST [facility] Blood Venous blood specimen / Unknown Venipuncture / Unknown 07/21/2024 7:40 AM EST 07/21/2024 7:52 AM EST Narrative [facility] - 07/21/2024 12:31 PM EST [...] obtained. Dilan SALINAS LAB BLOOD ORDERAB LES [facility] [address] [place] [address], [place] [phone] * (ABNORMAL) CBC auto differential (07/21/2024 7:40 AM EST) Only the most recent of4 resultswithin the time period is included. [facility] Signature WBC 12.3(H) 4.8 - 10.8 K/mcL LAB HEMETOLOGY METHOD 07/21/2024 8:26 AM [facility] RBC 3.80(L) 4.50 - 5.50 M/mcL LAB HEMETOLOGY METHOD 07/21/2024 8:26 AM [facility] Hemoglobin 12.4(L) 13.5 - 17.5 g/dL LAB HEMETOLOGY METHOD 07/21/2024 8:26 AM [facility] Hematocrit 36.2(L) 42.0 - 54.0 % LAB HEMETOLOGY METHOD 07/21/2024 8:26 AM [facility] MCV 95.3 79.0 - 98.0 FL LAB HEMETOLOGY METHOD 07/21/2024 8:26 AM [facility] MCH 32.6(H) 27.0 - 32.0 pcg LAB HEMETOLOGY METHOD 07/21/2024 8:26 AM [facility] MCHC 34.3 32.0 - 37.0 g/dL LAB HEMETOLOGY METHOD 07/21/2024 8:26 AM [facility] RDW 13.0 11.0 - 15.0 % LAB HEMETOLOGY METHOD 07/21/2024 8:26 AM [facility] Platelets 118(L) 130 - 400 K/mcL LAB HEMETOLOGY METHOD 07/21/2024 8:26 AM [facility] MPV 10.7 7.0 - 11.0 FL LAB HEMETOLOGY METHOD 07/21/2024 8:26 AM [facility] NRBC 0.0 <1.0 % LAB HEMETOLOGY METHOD 07/21/2024 8:26 AM [facility] NRBC Absolute 0.00 <0.10 K/mcL LAB HEMETOLOGY METHOD 07/21/2024 8:26 AM [facility] Neutrophils Relative 87.2 % LAB HEMETOLOGY METHOD 07/21/2024 8:26 AM [facility] Lymphocytes Relative 6.4 % LAB HEMETOLOGY METHOD 07/21/2024 8:26 AM [facility] Monocytes Relative 5.0 % LAB HEMETOLOGY METHOD 07/21/2024 8:26 AM [facility] Eosinophils Relative 0.3 % LAB HEMETOLOGY METHOD 07/21/2024 8:26 AM [facility] Basophils Relative 0.2 % LAB HEMETOLOGY METHOD 07/21/2024 8:26 AM [facility] Immature Granulocytes Relative 0.9 % LAB HEMETOLOGY METHOD 07/21/2024 8:26 AM [facility] Neutrophils Absolute 10.74(H) 1.50 - 7.00 K/mcL LAB HEMETOLOGY METHOD 07/21/2024 8:26 AM [facility] Lymphocytes Absolute 0.79(L) 1.00 - 5.00 K/mcL LAB HEMETOLOGY METHOD 07/21/2024 8:26 AM [facility] Monocytes Absolute 0.61 0.20 - 1.00 K/mcL LAB HEMETOLOGY METHOD 07/21/2024 8:26 AM [facility] Eosinophils Absolute 0.04 0.00 - 0.50 K/mcL LAB HEMETOLOGY METHOD 07/21/2024 8:26 AM [facility] Basophils Absolute 0.03 0.00 - 0.20 K/mcL LAB HEMETOLOGY METHOD 07/21/2024 8:26 AM [facility] Immature Granulocytes Absolute 0.11(H) 0.00 - 0.03 K/mcL LAB HEMETOLOGY METHOD 07/21/2024 8:26 AM EST [facility] Blood Venous blood specimen / Unknown Venipuncture / Unknown 07/21/2024 7:40 AM EST 07/21/2024 7:52 AM EST Cherry SALINAS LAB BLOOD ORDERABL ES Performing Organization Address [facility] de Phone Number [facility] [address] [place] [address], * (ABNORMAL) Insulin, fasting (07/21/2024 7:40 AM EST) [facility] Insulin 1.7(L) 3.0 - 25.0 mcIU/mL LAB CHEMISTRY METHOD 07/21/2024 8:41 AM EST [facility] Blood Venous blood specimen / Unknown Venipuncture / Unknown 07/21/2024 7:40 AM EST 07/21/2024 7:52 AM EST Narrative [facility] - 07/21/2024 8:41 AM EST Insulin reference range based on fasting status. ??Insulin values vary in non- fasting individuals. Dilan SALINAS LAB BLOOD ORDERAB LES Performing Organization Address [facility] de Phone Number [facility] [address] [place] [address], * C-peptide (07/21/2024 7:40 AM EST) [facility] C-Peptide 0.92 0.80 - 3.90 ng/mL LAB CHEMISTRY METHOD 07/21/2024 9:50 AM EST [facility] Blood Venous blood specimen / Unknown Venipuncture / Unknown 07/21/2024 7:40 AM EST 07/21/2024 7:52 AM EST Dilan SALINAS LAB BLOOD ORDERAB LES Performing Organization Address [facility] Co de Phone Number [facility] [address] [place] [address], * (ABNORMAL) Magnesium (07/21/2024 7:40 AM EST) Only the most recent of3 resultswithin the time period is included. Magnesium 1.6(L) 1.9 - 2.6 mg/dL LAB CHEMISTRY METHOD 07/21/2024 8:29 AM EST [facility] Blood Venous blood specimen / Unknown Venipuncture / Unknown 07/21/2024 7:40 AM EST 07/21/2024 7:52 AM EST Cherry SALINAS LAB BLOOD ORDERABL ES Performing Organization Address [facility] Co de Phone Number [facility] [address] [place] [address], * Cortisol (07/21/2024 7:40 AM EST) Cortisol 21.0 mcg/dL LAB CHEMISTRY METHOD 07/21/2024 8:41 AM EST [facility] Blood Venous blood specimen / Unknown Venipuncture / Unknown 07/21/2024 7:40 AM EST 07/21/2024 7:52 AM EST Narrative [facility] - 07/21/2024 8:41 AM EST CORTISOL REFERENCE RANGE ?? 8 AM SPEC: ??5.0-23.0 mcg/dL ?? 4 PM SPEC: ??3.0-16.0 mcg/dL ?? 8 PM SPEC: ??<5.0 mcg/dL Dilan SALINAS LAB BLOOD ORDERAB LES Performing Organization Address [facility]/ZIP Co de Phone Number [facility] [address] [place] [address], [place] [phone] * (ABNORMAL) Hepatic function panel (07/21/2024 7:40 AM EST) Only the most recent of2 resultswithin the time period is included. Pathologist [facility] Total Protein 4.5(L) 6.0 - 8.0 g/dL LAB CHEMISTRY METHOD 07/21/2024 9:42 AM [facility] Albumin 2.1(L) 3.2 - 5.0 g/dL LAB CHEMISTRY METHOD 07/21/2024 9:42 AM [facility] Total Bilirubin 0.6 0.0 - 1.4 mg/dL LAB CHEMISTRY METHOD 07/21/2024 9:42 AM [facility] Comment:Results verified by repeat testing Bilirubin, Direct 0.1 0.0 - 0.3 mg/dL LAB CHEMISTRY METHOD 07/21/2024 9:42 AM [facility] Bilirubin, Indirect 0.5 0.0 - 1.1 mg/dL LAB CHEMISTRY METHOD 07/21/2024 9:42 AM [facility] ALT (SGPT) 19 10 - 60 unit/L LAB CHEMISTRY METHOD 07/21/2024 9:42 AM [facility] AST (SGOT) 32 10 - 42 unit/L LAB CHEMISTRY METHOD 07/21/2024 9:42 AM [facility] Alkaline Phosphatase 45 42 - 121 unit/L LAB CHEMISTRY METHOD 07/21/2024 9:42 AM [facility] Blood Venous blood specimen / Unknown Venipuncture / Unknown 07/21/2024 7:40 AM EST 07/21/2024 7:52 AM EST Dilan SALINAS LAB BLOOD ORDERAB LES [facility] [address] [place] [address], * (ABNORMAL) Basic metabolic panel (07/21/2024 7:40 AM EST) Only the most recent of4 resultswithin the time period is included. [facility] Sodium 139 133 - 145 mmol/L LAB CHEMISTRY METHOD 07/21/2024 8:29 AM [facility] Potassium 3.2(L) 3.5 - 5.5 mmol/L LAB CHEMISTRY METHOD 07/21/2024 8:29 AM [facility] Chloride 104 96 - 110 mmol/L LAB CHEMISTRY METHOD 07/21/2024 8:29 AM [facility] CO2 28 21 - 32 mmol/L LAB CHEMISTRY METHOD 07/21/2024 8:29 AM [facility] Anion Gap 7 3 - 11 LAB CHEMISTRY METHOD 07/21/2024 8:29 AM [facility] Glucose 63(L) 70 - 100 mg/dL LAB CHEMISTRY METHOD 07/21/2024 8:29 AM [facility] BUN 11 5 - 25 mg/dL LAB CHEMISTRY METHOD 07/21/2024 8:29 AM [facility] Creatinine 0.45(L) 0.70 - 1.30 mg/dL LAB CHEMISTRY METHOD 07/21/2024 8:29 AM [facility] eGFR 115 >=60 mL/min/1. 73m2 LAB CHEMISTRY METHOD 07/21/2024 8:29 AM [facility] Comment:Calculation based on the??Chronic Kidney Disease Epidemiology Collaboration (CKD-EPI) equation refit??without adjustment for race. BUN/Creatinine Ratio 24.4 LAB CHEMISTRY METHOD 07/21/2024 8:29 AM [facility] Calcium 8.4(L) 8.5 - 10.5 mg/dL LAB CHEMISTRY METHOD 07/21/2024 8:29 AM [facility] Blood Venous blood specimen / Unknown Venipuncture / Unknown 07/21/2024 7:40 AM EST 07/21/2024 7:52 AM EST Cherry SALINAS LAB BLOOD ORDERABL ES [facility] [address] [place] [address], [place] [phone] * HIV 1,2 antibody, p24 antigen with reflex to differentiation (07/20/2024 6:06 AM EST) [facility] HIV Combo AB/AG Negative Negative LAB CHEMISTRY METHOD 07/20/2024 3:01 PM [facility] Blood Venous blood specimen / Unknown Venipuncture / Unknown 07/20/2024 6:06 AM EST 07/20/2024 7:02 AM EST Narrative [facility] - 07/20/2024 3:01 PM EST This [...] screening. Dilan SALINAS LAB BLOOD ORDERAB LES [facility] [address] [place] [address], [place] [phone] * (ABNORMAL) Manual differential (07/20/2024 6:06 AM EST) Only the most recent of3 resultswithin the time period is included. [facility] Neutrophils % 79.0 % LAB HEMETOLOGY METHOD 07/20/2024 8:58 AM [facility] Bands % 10.0 % LAB HEMETOLOGY METHOD 07/20/2024 8:58 AM [facility] Lymphocytes % 6.0 % LAB HEMETOLOGY METHOD 07/20/2024 8:58 AM [facility] Monocytes % 1.0 % LAB HEMETOLOGY METHOD 07/20/2024 8:58 AM [facility] Eosinophils % 0.0 % LAB HEMETOLOGY METHOD 07/20/2024 8:58 AM [facility] Basophils % 1.0 % LAB HEMETOLOGY METHOD 07/20/2024 8:58 AM [facility] Metamyelocytes % 4.0(H) % LAB HEMETOLOGY METHOD 07/20/2024 8:58 AM [facility] Neutrophils Absolute Manual 9.56(H) 1.50 - 7.00 K/mcL LAB HEMETOLOGY METHOD 07/20/2024 8:58 AM [facility] Bands Absolute Manual 1.21(H) 0.00 - 0.00 K/mcL LAB HEMETOLOGY METHOD 07/20/2024 8:58 AM [facility] Lymphocytes Absolute 0.73(L) 1.00 - 5.00 K/mcL LAB HEMETOLOGY METHOD 07/20/2024 8:58 AM [facility] Monocytes Absolute Manual 0.12(L) 0.20 - 1.00 K/mcL LAB HEMETOLOGY METHOD 07/20/2024 8:58 AM [facility] Eosinophils Absolute Manual 0.00 0.00 - 0.50 K/mcL LAB HEMETOLOGY METHOD 07/20/2024 8:58 AM [facility] Basophils Absolute Manual 0.12 0.00 - 0.20 K/mcL LAB HEMETOLOGY METHOD 07/20/2024 8:58 AM [facility] Metamyelocytes Absolute Manual 0.48(H) 0.00 - 0.00 K/mcL LAB HEMETOLOGY METHOD 07/20/2024 8:58 AM [facility] Rbc Morphology Present( A) Consistent with indices, Normal for LAB HEMETOLOGY METHOD 07/20/2024 8:58 AM [facility] Comment:RBC: Morphology agre es with CBC Platelet Morphology - WAM See Note(A) Normal LAB HEMETOLOGY METHOD 07/20/2024 8:58 AM [facility] Comment:PLT: Normal Toxic Granules Present Present( A) (none) LAB HEMETOLOGY METHOD 07/20/2024 8:58 AM EST [facility] Vacuolated Neutrophils Present Present( A) (none) LAB HEMETOLOGY METHOD 07/20/2024 8:58 AM EST [facility] Dohle Body Present Present( A) (none) LAB HEMETOLOGY METHOD 07/20/2024 8:58 AM EST [facility] Blood Venous blood specimen / Unknown Venipuncture / Unknown 07/20/2024 6:06 AM EST 07/20/2024 7:03 AM EST Cherry SALINAS LAB BLOOD ORDERABL ES Performing Organization Address [facility]/ZIP Co de Phone Number [facility] [address] [place] [address], * Thyroid stimulating hormone (07/20/2024 6:06 AM EST) Pathologist [facility] TSH 2.70 0.40 - 4.00 mcIU/mL LAB CHEMISTRY METHOD 07/20/2024 7:13 PM EST [facility] Blood Venous blood specimen / Unknown Venipuncture / Unknown 07/20/2024 6:06 AM EST 07/20/2024 7:02 AM EST Dilan SALINAS LAB BLOOD ORDERAB LES [facility] [address] [place] [address], [place] [phone] * ECG 12 lead (07/19/2024 1:17 PM EST) Only the most recent of3 resultswithin the time period is included. Ventricular Rate ECG 115 BPM GEMUSE Atrial Rate 115 BPM GEMUSE P-R Interval 140 ms GEMUSE QRS Duration 82 ms GEMUSE Q-T Interval 290 ms GEMUSE QTc 401 ms GEMUSE P Wave [place] 67 degrees GEMUSE R [place] 77 degrees GEMUSE T [place] 64 degrees GEMUSE ECG Interpretation Sinus tachycardia Biatrial enlargement Anterior infarct (cited on or before 18-JUL-2024) Abnormal ECG When compared with ECG of 18-JUL-2024 21:25, Premature ventricular complexes are no longer Present Confirmed by MD Anibal, Kris ([id number]) on 07/20/2024 8:56:03 AM GEMUSE 07/19/2024 1:17 [...] Leong MD on 07/19/2024 19:31:[address] PROCEDURES * Mycoplasma pneumoniae antibody IgM (07/19/2024 4:47 AM EST) [facility] Mycoplasma Antibody IgM 0.53 <=0.90 INDEX 07/22/2024 6:06 AM EST [facility] Comment: Negative: No antibody detected Test performed at [facility], [address] , [place], [place] ??[address] ? [phone] Michelle Stewart MD, PhD - [employer] Manager Blood Venous blood specimen / Unknown Venipuncture / Unknown 07/19/2024 4:47 AM EST 07/19/2024 5:11 AM EST Pino Apple MD LAB BLOOD ORDERABLES [facility] [address] [place] [address] * ECG-Annotated (07/19/2024) Provider Onbase ECG ORDERABLES * Respiratory virus panel molecular study (07/18/2024 11:54 PM EST) [facility] Adenovirus Detection by PCR Not Detected Not Detected LAB MICROBIOLOGY METHOD 07/19/2024 12:59 AM EST [facility] Influenza A PCR Not Detected Not Detected LAB MICROBIOLOGY METHOD 07/19/2024 12:59 AM EST [facility] Influenza B PCR Not Detected Not Detected LAB MICROBIOLOGY METHOD 07/19/2024 12:59 AM EST [facility] Coronavirus 229E Not Detected Not Detected LAB MICROBIOLOGY METHOD 07/19/2024 12:59 AM [facility] Coronavirus HKU1 Not Detected Not Detected LAB MICROBIOLOGY METHOD 07/19/2024 12:59 AM [facility] Coronavirus OC43 Not Detected Not Detected LAB MICROBIOLOGY METHOD 07/19/2024 12:59 AM [facility] Coronavirus NL63 Not Detected Not Detected LAB MICROBIOLOGY METHOD 07/19/2024 12:59 AM [facility] Parainfluenza Virus 1 Not Detected Not Detected LAB MICROBIOLOGY METHOD 07/19/2024 12:59 AM [facility] Parainfluenza Virus 2 Not Detected Not Detected LAB MICROBIOLOGY METHOD 07/19/2024 12:59 AM [facility] Parainfluenza Virus 3 Not Detected Not Detected LAB MICROBIOLOGY METHOD 07/19/2024 12:59 AM [facility] Parainfluenza Virus 4 Not Detected Not Detected LAB MICROBIOLOGY METHOD 07/19/2024 12:59 AM [facility] RSV PCR Not Detected Not Detected LAB MICROBIOLOGY METHOD 07/19/2024 12:59 AM [facility] Human Metapneumovirus A and B Not Detected Not Detected LAB MICROBIOLOGY METHOD 07/19/2024 12:59 AM [facility] Rhinovirus/Entero virus Not Detected Not Detected LAB MICROBIOLOGY METHOD 07/19/2024 12:59 AM [facility] Bordetella pertussis Not Detected Not Detected LAB MICROBIOLOGY METHOD 07/19/2024 12:59 AM [facility] Bordetella parapertussis Not Detected Not Detected LAB MICROBIOLOGY METHOD 07/19/2024 12:59 AM [facility] Mycoplasma pneumo by PCR Not Detected Not Detected LAB MICROBIOLOGY METHOD 07/19/2024 12:59 AM [facility] Chlamydia pneumoniae Not Detected Not Detected LAB MICROBIOLOGY METHOD 07/19/2024 12:59 AM [facility] SARS COV-2 Not Detected Not Detected LAB MICROBIOLOGY METHOD 07/19/2024 12:59 AM EST [facility] Swab Both anterior nares / Unknown Non-blood Collection / Unknown 07/18/2024 11:54 PM EST 07/19/2024 12:04 AM EST Narrative [facility] - 07/19/2024 12:59 AM EST Testing was performed using the [employer]isk Respiratory Pathogen PCR Assay. All results must [...] MD LAB MICROBIOLOGY - G ENERAL ORDERABLES Performing Organization Address [facility] Co de Phone Number [facility] [address] [place] [address], * Legionella antigen urine, EIA (07/18/2024 10:24 PM EST) Legionella Antigen, Ur Negative Negative 07/18/2024 11:13 PM EST [facility] Urine Urine specimen obtained by clean catch procedure / Unknown Non-blood Collection / Unknown 07/18/2024 10:24 PM EST 07/18/2024 10:50 PM EST Narrative [facility] - 07/18/2024 11:13 PM EST Negative for Legionella pneumophilia serogroup 1 antigen. This presumptive result suggests no current or recent infection due to L. pneumophilia serogroup 1. Culture is recommended if Legionella infection is till suspected, as other serogroups and species of Legionella are not detected by this test. Pino Apple MD LAB URINE ORDERABLES Performing Organization Address [facility]/ZIP Co de Phone Number [facility] [address] [place] [address], * Troponin I high sensitivity (07/18/2024 9:36 PM EST) Only the most recent of2 resultswithin the time period is included. High Sensitivity Troponin I 15 <=79 ng/L LAB CHEMISTRY METHOD 07/18/2024 10:07 PM EST [facility] Blood Venous blood specimen / Unknown Venipuncture / Unknown 07/18/2024 9:36 PM EST 07/18/2024 9:42 PM EST Narrative [facility] - 07/18/2024 10:07 PM EST High levels of biotin in samples may falsely decrease hsTroponin values. ??Use caution when interpreting hsTroponin results in patients taking biotin who exhibit renal impairment (eGFR <60) or in patients taking more than 20 mg/day of biotin. Karyna Garza DO LAB BLOOD ORDERAB LES [facility] [address] [place] [address], [place] [phone] * XR Chest 1 View (07/18/2024 9:29 PM EST) Anatomical Region Laterality Modality Body Radiographic Pao ging 07/19/2024 7:23 AM EST Impressions 07/19/2024 7:24 AM EST Right midlung consolidation. -------- FINAL REPORT -------- Dictated By: Barry Arellano Dictated Date: 07/19/2024 07:23 ET Assigned Physician: Barry Arellano Reviewed and Electronically Signed By: Barry Arellano Signed Date: 07/19/2024 07:24 ET Workstation ID: [id number] Transcribed By: Self Edit Transcribed Date: 07/19/2024 [...] Signed Date: 07/19/2024 07:24 ET Workstation ID: [id number] Transcribed By: Self Edit Transcribed Date: 07/19/2024 07:23 ET Karyna Garza DO IMG XR PROCEDURES * (ABNORMAL) B-type natriuretic peptide (07/18/2024 8:38 PM EST) BNP 320(H) <=100 pcg/mL LAB CHEMISTRY METHOD 07/18/2024 9:19 PM EST [facility] Blood Venous blood specimen / Unknown Venipuncture / Unknown 07/18/2024 8:38 PM EST 07/18/2024 8:43 PM EST Karyna Garza DO LAB BLOOD ORDERAB LES [facility] [address] [place] [address], from Last 3 Months Advance Directives * Full Code - Default (Latest Code Status on File) Date Activated Date Inactivated Comments 07/18/2024 9:51 PM 07/21/2024 6:10 PM This is or ricky is used when code status has not been discussed with the patient, or code status is otherwise unknown/unconfirmed To update the patient's code status, place a code status order. Do not modify or discontinue any currently active code status orders. Care Teams Android Programmer Relationship Specialty Start Date End Date Marek Sullivan MD [address] [place] [address] Dr [address] ELMO Peters PCP - General Internal Medicine 07/18/24
== END 2024-08-18 11:31 | disposition home or self-care (01) ==
DX: Z23 Encounter for immunization (principal)

== ENCOUNTER → 2024-08-18 10:25 | Outpatient (BNVA) | payer MEDICARE, SELFPAY | DX: Z00.00 Encounter for general adult medical examination without abnormal findings (principal); I49.9 Cardiac arrhythmia, unspecified; I51.7 Cardiomegaly; J43.9 Emphysema, unspecified; J44.9 Chronic obstructive pulmonary disease, unspecified; R05.9 Cough, unspecified; Z23 Encounter for immunization | CPT/HCPCS: 90471; 90656; 96127; 99202 ==

== ENCOUNTER 2024-08-19 08:10 | Outpatient (REF) | payer MEDICARE, SELFPAY ==
[2024-08-19 08:26] LABS: MANUAL DIFF FLAG NO
[2024-08-19 08:35] LABS: Basophils Absolute Auto 0.1 X10*3/uL (0.0-0.2); Basophils Percent Auto 0.5 % (0-2); Eosinophils Absolute Auto 0.5 X10*3/uL (0.0-0.4); Hemoglobin 14.7 g/dl (14.0-18.0); Imm Gran Abs Auto 0.04 X10*3/uL (0.00-0.03); Imm Gran Pct Auto 0.4 % (0.0-0.4); Lymphocytes Percent Auto 28.1 % (20-40); Mean Corpuscular HGB Conc 32.7 g/dl (31.0-36.0); Mean Platelet Volume 9.5 fL (9.4-12.4); Monocytes Absolute Auto 1.2 X10*3/uL (0.1-1.2); Monocytes Percent Auto 11.7 % (2-11); Neutrophils Absolute Auto 5.8 x10*3/uL (2.0-8.3); Neutrophils Percent Auto 54.3 % (45-73); Platelet Count 220 X10*3/uL (160-400); Red Blood Count 4.59 X10*6/uL (4.60-5.80); Red Cell Distribution Width 13.8 % (11.0-16.0); White Blood Count 10.6 X10*3/uL (4.8-10.8)
[2024-08-19 09:08] LABS: Alanine Aminotransferase 20 U/L (0-40); Albumin Level 3.9 g/dL (3.5-5.0); Anion Gap 9 (12-20); Aspartate Amino Transferase 27 U/L (5-37); Bilirubin Total 0.4 mg/dL (0.0-1.0); Blood Urea Nitrogen 9 mg/dL (9-16); Calcium 9.3 mg/dL (8.4-10.2); Carbon Dioxide 28 mmol/L (22-29); Chloride 107 mmol/L (96-108); Cholesterol 226 mg/dL (<200); Estimated Glomerular Filt Rate > 60; Glucose Fasting 88 mg/dL (60-99); HDL Cholesterol 64 mg/dL (>40); LDL Cholesterol Calculated 135 mg/dL (<100); Potassium 3.9 mmol/L (3.3-5.1); Sodium 140 mmol/L (135-145); Total Protein 7.2 g/dL (6.5-8.0); Triglycerides 139 mg/dL (<150)
[2024-08-19 09:10] LABS: Appearance Urine Clear; Color Urine Yellow; Glucose Urine UA Negative (Negative); Leukocyte Esterase Urine Negative (Negative); Nitrite Urine Negative (Negative); Specific Gravity - Urine 1.015 (1.005-1.025); Urine Blood Negative (Negative); Urine Ketones Negative (Negative); Urine Protein Negative (Neg-Trace)
[2024-08-19 09:20] LABS: PSA,Total (Free>4and<10) 2.41 ng/mL (0.00-4.00)
[2024-08-19 09:32] LABS: TSH reflex Free T4 1.66 uIU/mL (0.32-4.0); Vitamin D 25-OH Total 26.4 ng/mL (>30)
[2024-08-19 11:03] LABS: Alkaline Phosphatase 69 U/L (39-117)
== END 2024-08-19 08:11 | disposition home or self-care (01) ==
LOC: HO.LAB 08:10
PROVIDERS: PCP Internal Medicine
DX: Z00.00 Encounter for general adult medical examination without abnormal findings (principal); Z12.5 Encounter for screening for malignant neoplasm of prostate
CPT/HCPCS: 36415; 80053; 80061; 81003; 82306; 84153; 84443; 85025

== ENCOUNTER 2024-09-01 09:04 | Outpatient (AMB) | payer MEDICARE, SELFPAY ==
--- NOTE | 2024-09-01 08:27 | A.OFFVIS_ITS ---
Intake Vital Signs 09/01/24 09:08 Height 5 ft 2.6 in Weight 105 lb 8 oz BMI 18.9 BP 118/80 Blood Pressure Location Lt brachial Position Sitting Pulse 87 Pulse Source Pulse Oximeter Pulse Oximetry (%) 97 Oxygen Delivery Method Room Air Intake Visit Reasons: AWV G0438 Intake Note: Patient is here for an Annual Wellness Visit. Director Of Property Management Required: No Door Trimmer: Door Trimmer offered & declined Accompanied by: Self / Same As Patient Allergies Sulfa (Sulfonamide Antibiotics) [SULFA (SULFONAMIDE ANTIBIOTICS)] Allergy (Intermediate, Verified 09/01/24 09:08) RASH codeine [CODEINE] Adverse Reaction (Mild, Verified 09/01/24 09:08) Vomiting Do you need a note to return to daycare/school/sports/work: No HPI AWV G0438 HPI Details The patient is presenting for a Medicare wellness evaluation The poarch of life and end of life planning was discussed and reviewed with patient Patient currently does not see specialists We will refer the patient to pulmonology and Cardiology MOLST form and cardiopulmonary resuscitation form was given to patient to fill out return The patient is not sure what he wants and needs some time to think about it Dentist: Encouraged the patient to make appointment Eye: Encouraged the patient to make Snellen: Right: Left: Corrected vision: STI screening: Colonoscopy: 10 years ago, does not want to repeat that experience, Cologuard was ordered Flu: 08/18/24 COVID:x3 Tdap:2013-due, does not want get this done this time Diet: Reports eating lot of sweets, but has been cutting Exercise: Activity around the house HPI Comments History of Present Illness Details reviewed past medical history- yes reviewed surgical / hospitalization history- yes reviewed current medications- yes reviewed family history- yes home safety throw rugs? no grab bars? no raised toilet seat? no working smoke detectors? y activities of daily living difficulty bathing or showering? no difficulty dressing? no difficulty using the toilet? no difficulty getting in and out of bed? no difficulty walking?no receives help from other person's with any of the above tasks? no instrumental activities of daily living uses telephone - yes gets to place out of walking distance- yes go shopping for groceries- yes repairs own meals- yes does own minor home maintenance- yes does own laundry- yes does own housework- yes manages own money- yes currently takes medication- no end of life planning discussed advanced directives- yes advanced directives on file? no discussed wishes expressed in advanced directives. patient not sure, he will think about it fall risk have you had any falls with injuries in the past year? no have you had 2 or more falls in the past year? no fall risk assessment: [facility] Surgical History History of hernia surgery Social History Housing: House Alcohol intake: never Patient Tobacco Use Status: Former Tobacco user e-Cigarette/Vaping Use: Never Used Second Hand Smoke Exposure: Yes service: No Current occupational status: retired Cognitive needs: No Hearing needs: No Vision needs: Yes (Glasses) Questionnaire Medicare Wellness Checkup [age] What gender do you identify with?: male During the past 4 weeks, how much have you been bothered by emotional problems such as feeling anxious, depressed, irritable, sad or downhearted, and blue?: not at all During the past 4 weeks, has your physical & emotional health limited your social activities with family, friends, neighbors, or groups?: not at all During the past 4 weeks, how much bodily pain have you generally had?: no pain During the past 4 weeks, was someone available to help you if you needed & wanted help?: yes, as much as I wanted During the past 4 weeks, what was the hardest physical activity you could do for at least 2 minutes?: heavy Can you get to places out of walking distance without help? (For eg., can you travel alone on buses, taxis or drive your car?): Yes Can you go shopping for groceries or clothes without someone's help?: Yes Can you prepare your own meals?: Yes Can you do your housework without help?: Yes Because of any health problems, do you need the help of another person with your personal care needs such as eating, bathing, dressing or getting around the house?: No Can you handle your own money without help?: Yes During the past 4 weeks, how would you rate your health in general?: very good During the past 4 weeks how have things been going for you?: very well; could hardly better Are you having difficulties driving your car?: no Do you always fasten your seat belt when you are in a car?: yes, usually During past 4 weeks, have you been bothered by the following: never: Sexual problems?, Trouble eating well?, Problems using the telephone? and Tiredness or fatigue? and seldom: Falling or dizzy when standing up and Teeth or denture problems? Have you fallen 2 or more times in the past year?: No Are you afraid of falling?: No Are you a smoker?: no During the past 4 weeks, how many drinks of wine, beer, or other alcoholic beverages did you have?: no alcohol at all Do you exercise for about 20 minutes 3 or more times a week?: yes, most of the time Have you been given information to help with the following?: no: Hazards in your house that might hurt you? and no: Keeping track of your medications? How often do you have trouble taking medicines the way you have been told to take them?: I do not have to take medicine How confident are you that you can control & manage most of your health p roblems?: very confident What is your race?: White Mini Mental State Exam (MMSE) Orientation What is the (year) (season) (date) (day) (month)?: year, season, date, day and month Where are we (state) (county) (town or city) (hospital) (floor)?: state, county, town or city, hospital/clinic and floor Score Score: 10 Activity of Daily Living Bathing - sponge bath, tub bath or shower: receives no assistance (gets in/out by self, if usual bathing means Dressing - getting clothes from closets & drawers, including inner/outer garments & fasteners.: gets clothes & gets completely dressed without help Toileting - going to the 'toilet room' for urine/bowel elimination & cleaning self/arranging clothes: goes to toilet room, cleans self, arranges clothes without help Transfer: moves in & out of bed and chair without help (may use support object) Continence: controls urination/bowel movements completely by self Feeding: feeds self without help Total Score: 0 Information obtained from: patient Using telephone: independent Traveling: independent Shopping: independent Preparing meals: independent Housework: independent Taking medicine: independent Managing money: independent PHQ-9 Over the last 2 weeks, how often have you been bothered by any of the following problems? 1. Little interest or pleasure in doing things: not at all 2. Feeling down, depressed, or hopeless: not at all 3. Trouble falling or staying asleep, or sleeping too much: not at all 4. Feeling tired or having little energy: not at all 5. Poor appetite or overeating: not at all 6. Feeling bad about yourself - or that you are a failure or have let yourself or your family down: not at all 7. Trouble concentrating on things, such as reading the newspaper or watching television: not at all 8. Moving or speaking so slowly that other people could have noticed. Or the opposite - being so fidgety or restless that you have been moving around a lot more than usual: not at all 9. Thoughts that you would be better off or of hurting yourself in some way: not at all Total score: 0 Depression Screening Interpretation: Negative Depression Screening Done: Yes Source: Developed by Drs. Floyd Wan, Marichuy Dee, Bhavin Roca and colleagues, with an educational irene from [employer]. Thrive Questionnaire Date Thrive assessed: 09/01/24 I am a: Patient What is your living situation today?: I have a steady place to live Within the past 12 months, did the food you bought not last and you didn't have the money to get more?: Often true Within the past 12 months, did you worry whether your food would run out before you got money to buy more?: Often true Do you have trouble paying for medicines?: No Do you have trouble getting transportation to medical appointments?: No Do you have trouble paying your heating and electricity bill?: No Do you have trouble taking care of your child, family member or friend?: No Do you have trouble with day-to-day activities such as bathing, preparing meals, shopping, managing finances, etc.?: No Are you currently unemployed and looking for a job?: No Are you interested in more education?: No Please select the resources that you would like help with: None Currently or been in a relationship where the following occur: I choose not to answer THRIVE Score: 2 MATEO-7 AMB Questionnaire MATEO-7 Date MATEO - 7 assessed: 09/01/24 Feeling nervous, anxious, or on edge: 0 = Not at all Not being able to stop or control worryin = Not at all Worrying too much about different things: 0 = Not at all Trouble relaxin = Not at all Being so restless that it is hard to sit still: 0 = Not at all Becoming easily annoyed or irritable: 0 = Not at all Feeling afraid as if something awful might happen: 0 = Not at all Total MATEO-7 score (0-4 normal; 5-9 mild; 10-14 moderate; 15-21 severe): 0 Source: Developed by Drs. Floyd Wan, Marichuy Dee, Bhavin Roca and colleagues, with an educational irene from [employer]. AUDIT C Alcohol Use Questionnaire (AUDIT-C) 1. How often do you have a drink containing alcohol?: Never 3. How often do you have six or more drinks on one occasion?: Never Total Score: 0 Review of Systems Const Details: Denies chills, Denies fatigue, Denies fever(s), Denies headache(s) and Denies weakness HEENT Denies change in vision, Denies dizziness, Denies headache(s), Denies hearing loss, Denies nasal congestion, Denies sinus pain, Denies sinus pressure and Denies sore throat Card Denies chest pain, Denies lightheadedness, Denies dyspnea and Denies other (palpitations) Resp Denies cough, Denies dyspnea and Denies wheezing GI Denies abdominal pain, Denies melena, Denies hematochezia, Denies change in bowel habits, Denies dyspepsia and Denies nausea Denies hematuria and Denies dysuria Musc Denies abnormal gait, Denies myalgias, Denies arthralgias, Denies numbness and Denies tingling Skin/Breast Denies rash, Denies unusual bruising and Denies wounds Neuro Denies abnormal gait, Denies dizziness, Denies headache(s), Denies memory loss, Denies numbness, Denies Sensory deficit (Neuro), Denies tingling and Denies weakness Psych Denies anxiety, Denies depression and Denies memory loss Endo Denies cold intolerance, Denies fatigue, Denies heat intolerance, Denies polydipsia and Denies polyuria Kervin/Lymph Denies easy bleeding and Denies easy bruising Aller/Immun Denies wheezing Physical Exam Vital Signs: Last Vital Signs Pulse 87 09/01/24 09:08 BP 118/80 09/01/24 09:08 Pulse Ox 97 09/01/24 09:08 Oxygen Delivery Method Room Air 09/01/24 09:08 BMI result Body Mass Index 18.9 Const Other: IPPE/AWV: Balance Romberg Yes . Tandem walk Yes. Walk and Turn Yes . Rise from sit to stand Yes . Vision Corrective lens No Vision screen pass Hearing Whisper test pass .yes Urinary incont. no. EKG Not clinically necessary. no Results Reviewed Results Reviewed: Laboratory Tests 08/19/24 08/19/24 08:19 08:23 WBC 10.6 RBC 4.59 L Hgb 14.7 Hct 45.0 MCV 98.0 MCH 32.0 RDW 13.8 Plt Count 220 Sodium 140 Potassium 3.9 Chloride 107 Carbon Dioxide 28 BUN 9 Creatinine 0.71 Estimated GFR > 60 Fasting Glucose 88 AST 27 ALT 20 Triglycerides 139 Cholesterol 226 H LDL Cholesterol, Calc 135 H HDL Cholesterol 64 Total PSA 2.41 25-OH Vitamin D Total 26.4 L TSH 1.66 Urine Color Yellow Urine Appearance Clear Urine pH 6.0 Ur Specific [place] 1.015 Urine Protein Negative Urine Glucose (UA) Negative Urine Ketones Negative Urine Blood Negative Urine Nitrite Negative Ur Leukocyte Esterase Negative Assessment & Plan Assessment & Plan (1) Medicare annual wellness visit, initial: Code(s): Z00.00 - Encounter for general adult medical examination without abnormal findings Plan: Discussed the poarch of life with patient and end of life planning. Patient reports that he does not know what he wants as yet. MOLST and HCP forms were given to patient to fill out and return. Patient is due for a colonoscopy, reports he does not want to relived that experience. Patient opted to do the Cologuard instead, order was placed. (2) Encounter for colorectal cancer screening: Code(s): Z12.11 - Encounter for screening for malignant neoplasm of colon; Z12.12 - Encounter for screening for malignant neoplasm of rectum Plan: Patient is due. Does not want to relived experience of colonoscopy Cologuard ordered (3) Vitamin D deficiency: Code(s): E55.9 - Vitamin D deficiency, unspecified Plan: Cholecalciferol 25 mcg daily ordered We will recheck labs in 3 months (4) Pure hypercholesterolemia: Code(s): E78.00 - Pure hypercholesterolemia, unspecified Plan: Total cholesterol and LDL elevated. Discussed with patient that he is at the range that medical management could be started SDM: The patient we will start with lifestyle modification (dietary management and increase activity as tolerated) (5) COPD (chronic obstructive pulmonary disease): Code(s): J44.9 - Chronic obstructive pulmonary disease, unspecified Qualifiers: COPD type: unspecified COPD Qualified Code(s): J44.9 - Chronic obstructive pulmonary disease, unspecified Plan: Unclear information: the patient was not sure, but he thought there was an concern about him having emphysema vs COPD He was send home with a rescue inhaler that he reports that he did not need so he has not been using it. The patient was noted to have inspiratory wheezes throughout the lung field without any dyspnea on exam The patient was encouraged to use his inhaler Patient was referred to pulmonology as well (6) Cardiomegaly: Code(s): I51.7 - Cardiomegaly Plan: Patient reported that he was told that he had cardiomegaly at [facility] The patient verbalized that this might be normal for him because his father had cardiomegaly We will refer to Cardiology (7) Irregular heart rhythm: Code(s): I49.9 - Cardiac arrhythmia, unspecified Plan: Irregular heart rhythm palpated and EKG was done, which showed sinus arrhythmia Refer to cardiology (8) Emphysema lung: Code(s): J43.9 - Emphysema, unspecified Qualifiers: Emphysema type: unspecified Qualified Code(s): J43.9 - Emphysema, unspecified Plan: Unclear information: the patient was not sure, but he thought there was an concern about him having emphysema vs COPD He was send home with a rescue inhaler that he reports that he did not need so he has not been using it. The patient was noted to have inspiratory wheezes throughout the lung field without any dyspnea on exam The patient was encouraged to use his inhaler (9) Cough: Code(s): R05.9 - Cough, unspecified Qualifiers: Cough type: unspecified Qualified Code(s): R05.9 - Cough, unspecified Plan: The patient reports that he had this cough since leaving the hospital reports that he feels like he needs to cough something up but nothing is coming up Mucinex 600mg bid ordered Encouraged the patient to increased his fluids intake Plan Patient to return in 3 months, labs order three-month follow-up Orders: Orders Complete Blood Count Auto Diff 3 Months E55.9 - Vitamin D deficiency, unspecified, E78.00 - Pure hypercholesterolemia, unspecified, I49.9 - Cardiac arrhythmia, unspecified Comprehensive Chauncey. Panel Fast 3 Months E55.9 - Vitamin D deficiency, unspecified, E78.00 - Pure hypercholesterolemia, unspecified, I49.9 - Cardiac arrhythmia, unspecified UA CC w/rflx Micro + Cult 3 Months E55.9 - Vitamin D deficiency, unspecified, E78.00 - Pure hypercholesterolemia, unspecified, I49.9 - Cardiac arrhythmia, unspecified TSH reflex Free T4 3 Months E55.9 - Vitamin D deficiency, unspecified, E78.00 - Pure hypercholesterolemia, unspecified, I49.9 - Cardiac arrhythmia, unspecified Lipid Panel 3 Months E55.9 - Vitamin D deficiency, unspecified, E78.00 - Pure hypercholesterolemia, unspecified, I49.9 - Cardiac arrhythmia, unspecified Vitamin D 25-OH Total 3 Months E55.9 - Vitamin D deficiency, unspecified, E78.00 - Pure hypercholesterolemia, unspecified, I49.9 - Cardiac arrhythmia, unspecified Referrals Pulmonology Referral J44.9 - Chronic obstructive pulmonary disease, unspeci fied Cardiology Referral I49.9 - Cardiac arrhythmia, unspecified, I51.7 - Cardiomegaly Cologuard Test Z12.11 - Encounter for screening for malignant neoplasm of colon, Z12.12 - Encounter for screening for malignant neoplasm of rectum Medications: New cholecalciferol (vitamin D3) 25 mcg PO DAILY 30 caps 3RF albuterol sulfate 90 mcg/actuation 2 inhalations inhalation Q4-6H PRN 1 ea 2RF shortness of breath or wheezing Quality Reporting (2019) Depression/Bipolar (159/160/161/177) PHQ-9: Total score: 0 Coding Level of Care Code Medicare First (G0438) Diagnoses Medicare annual wellness visit, initial Z00.00 Encounter for colorectal cancer screening Z12.11; Z12.12 Vitamin D deficiency E55.9 Pure hypercholesterolemia E78.00 Chronic obstructive pulmonary disease, unspecified COPD type J44.9 COPD type: unspecified COPD Cardiomegaly I51.7 Irregular heart rhythm I49.9 Pulmonary emphysema, unspecified emphysema type J43.9 Emphysema type: unspecified Cough, unspecified type R05.9 Cough type: unspecified Time Spent (min) 37 Advance Care Planning Date of discussion: 09/01/24 Who was present: Patient and . Forms were given, patient to complete and return
[2024-09-01 09:08] VITALS: BP 118/80; PULSE 87; O2SAT 97; BMI 18.9
--- OUTSIDE RECORDS SUMMARY | 2024-09-01 09:56 | XMS_ITS | Clinical Summary ---
Author Organization Unknown Care Team Providers Care Yarn Comber Name Role Phone IVANIA REMOTE SENSING SPECIALIST, JF Unavailable Unavailable YANELIS RN, ADMISSION NURSE, FLAKITA Unavail able Unavailable SHYANNE TOWNSEND LPN, DESHAWN Unavailable Unavafrancia lable Payers Payer Name Policy Type Policy Number Effective Date Expira tion Date [place] [id number] Problems Condition Name Condition Details Condition Category [...] on aerosol inhaler - 00:00: 00 Yes [id number] 2 puff EVERY 4 HOURS 2 puff EVERY 4 HOURS (route: inhalation ) Med Classific ation: Respirato ry Therapy Agents doxycycline hyclate 100 mg capsule 2023-07 00:00: 00 07-26 23:59 :00 No [id number] 1 capsule 2 TIMES DAILY 1 capsule 2 TIMES DAILY (route: oral) Med Classific ation: Anti-Infe ctive Agents levofloxaci n 750 mg tablet 2023-07 00:00: 00 07-26 23:59 :00 No [id number] 1 tablet DAILY 1 tablet DAILY (route: oral) Med Classific ation: Anti-Infe ctive Agents nicotine 7 mg/24 hr daily transdermal patch 07-24 00:00: 00 Yes [id number] 1 patch, transde rmal 24 hours DAILY 1 patch, transderma l 24 hours DAILY (route: transderma l) Med Classific ation: Chemical Dependenc y, Agents to Treat potassium chloride ER 10 mEq tablet,exte nded release 2023-07 00:00: 00 07-26 23:59 :00 No [id number] 4 tablet DAILY 4 tablet DAILY (route: oral) Med Classific ation: Electroly te Balance-N utritiona l Products Tussin Cough (DM only) 15 mg/5 mL oral liquid 2023-07 00:00: 00 Yes [id number] Per instruc tions O2 - PRN Per instructio ns O2 - PRN (route: oral) Med Classific ation: Respirato ry Therapy Agents Immunizations Ordered Immunization Name Filled Immunization Name Date Status Comments Refusal Reason COVID-19, COVID-19 2022-06-08 00:00:00 Vital Signs Vital Name Observation Time Observation Value Commen ts Temperature 2024-08-20 10:45:00.000 97.1 [degF] Temperature 2024-08-12 09:34:00.000 97.4 [degF] Temperature 2024 11:33:00.000 97.7 [degF] Temperature 2024-07-30 09:49:00.000 99.7 [degF] Temperature 2024-07-24 10:12:00.000 99.7 [degF] BMI (%) 2024-07-24 10:12:00.000 17 kg/m2 Height 2024-07-24 10:12:00.000 64 [in_us] Pulse 2024-08-20 10:45:00.000 72 /min Pulse 2024-08-12 09:33:00.000 72 /min Pulse 2024 11:33:00.000 90 /min Pulse 2024-07-30 09:49:00.000 102 /min Pulse 2024-07-24 10:12:00.000 90 /min O2 Saturation (%) 2024-08-20 10:56:00.000 98 % O2 Saturation (%) 2024-08-12 09:33:00.000 96 % O2 Saturation (%) 2024 11:33:00.000 93 % O2 Saturation (%) 2024-07-30 09:49:00.000 92 % O2 Saturation (%) 2024-07-24 10:12:00.000 93 % Respirations 2024-08-20 10:45:00.000 18 /min Respirations 2024 11:33:00.000 18 /min Respirations 2024-07-30 09:49:00.000 18 /min Respirations 2024-07-24 10:12:00.000 18 /min Weight (lbs) 2024-07-24 10:12:00.000 100 [lb_av] Systolic Blood Pressure 2024-08-20 10:45:00.000 116 mm [Hg] Systolic Blood Pressure 2024-08-12 09:33:00.000 120 mm [Hg] Systolic Blood Pressure 2024 11:33:00.000 126 mm [Hg] Systolic Blood Pressure 2024-07-30 09:49:00.000 126 mm [Hg] Systolic Blood Pressure 2024-07-24 10:12:00.000 120 mm [Hg] Diastolic Blood Pressure 2024-08-20 10:45:00.000 70 mm [Hg] Diastolic Blood Pressure 2024-08-12 09:33:00.000 [...] PATIENT FOR SECONDARY INSURANCE EDUCATION [code = STREETCAR DISPATCHER TO EVALUATE PATIENT FOR SECONDARY INSURANCE EDUCATION [...] MAINTAIN SITUATIONAL AWARENESS AND WILL NOTIFY CLINICAL CHRISTMAS BELL RINGER AND PHYSICIAN/PROVIDER WITH ANY CHANGE IN CONDITION. [code = SKILLED NURSE TO PERFORM ENVIRONMENTAL SAFETY RISK ASSESSMENT AND FALL RISK ASSESSMENT AND PROVIDE INSTRUCTION TO IMPLEMENT ENVIRONMENTAL SAFETY AND FALL PREVENTION STRATEGIES THROUGHOUT THE CERTIFICATION PERIOD. SKILLED NURSE WILL MAINTAIN SITUATIONAL AWARENESS AND WILL NOTIFY CLINICAL CHRISTMAS BELL RINGER AND PHYSICIAN/PROVIDER WITH ANY CHANGE IN CONDITION.] [...] PREVENT PRESSURE ULCERS.] Future Scheduled Test MEDICAL SO CIAL SERVICES FOR EVALUATION TO ASSESS SOCIAL AND EMOTIONAL FACTORS RELATED TO THE PATIENT'S ILLNESS, NEED FOR CARE, RESPONSE TO TREATMENT AND ADJUSTMENT TO CARE; TO BE FOLLOWED BY COLLABORATION WITH THE PHYSICIAN AND NURSE TO DEVELOP A PLAN OF CARE SUMMARY OF INSULATOR CUTTER AND FORMER EVAL/ASSESSMENT FINDINGS AND REASON(S) DIRECTOR OF GOLF IS INDICATED: INSULATOR CUTTER AND FORMER EVALUATION: MAAME IS A 68 YEAR OLD MALE REFERRED TO [facility] FOLLOWING HOSPITALIZATION FOR R LOBE. INSULATOR CUTTER AND FORMER FACILITATED COMMUNITY RESOURCE ASSESSMENT AND LTC PLANNING [...] SUPPLEMENTAL INSURANCE. MAAME MAY POSSIBLY QUALIFY FOR [email or web address]. INSULATOR CUTTER AND FORMER PLANS TO COMPLETE APPLICATION WITH PATIENT ON NEXT VISIT. INSULATOR CUTTER AND FORMER WILL FOLLOW UP 2 X FOR FURTHER RESOURCE SUPPORT. MEDICAL RESTORATIVE REHAB AIDE FOR COMMUNITY RESOURCE PLANNING. [code = MEDICAL RESTORATIVE REHAB AIDE FOR EVALUATION TO ASSESS SOCIAL AND EMOTIONAL FACTORS RELATED TO THE PATIENT'S ILLNESS, NEED FOR CARE, RESPONSE TO TREATMENT AND ADJUSTMENT TO CARE; TO BE FOLLOWED BY COLLABORATION WITH THE PHYSICIAN AND NURSE TO DEVELOP A PLAN OF CARE SUMMARY OF INSULATOR CUTTER AND FORMER EVAL/ASSESSMENT FINDINGS AND REASON(S) DIRECTOR OF GOLF IS INDICATED: INSULATOR CUTTER AND FORMER EVALUATION: MAAME IS A 68 YEAR OLD MALE REFERRED TO [facility] FOLLOWING HOSPITALIZATION FOR R LOBE. INSULATOR CUTTER AND FORMER FACILITATED COMMUNITY RESOURCE ASSESSMENT AND LTC PLANNING [...] SUPPLEMENTAL INSURANCE. MAAME MAY POSSIBLY QUALIFY FOR [email or web address]. INSULATOR CUTTER AND FORMER PLANS TO COMPLETE APPLICATION WITH PATIENT ON NEXT VISIT. INSULATOR CUTTER AND FORMER WILL FOLLOW UP 2 X FOR FURTHER RESOURCE SUPPORT. MEDICAL RESTORATIVE REHAB AIDE FOR COMMUNITY RESOURCE PLANNING.] Goal 2024-08-20 Patient Goal - TO FEEL FAUSTO R Goal Provider Goal - A PLAN OF CARE WILL BE ESTABLISHED THAT MEETS PATIENT'S JAIL NEEDS AND INCLUDES PATIENT GOAL FOR HOME HEALTH. Goal Provider Goal - PATIENT/CAREGIVER WILL VERBALIZE UNDERSTANDING OF EDUCATION PROVIDED ON MEDICATIONS BY THE END OF THE CERTIFICATION PERIOD. Goal Provider Goal - STREETCAR DISPATCHER TO COMPLETE EVALUATION TO ADDRESS THE PATIENTS [...] EPISODE. Goal Provider Goal - A MEDICAL RESTORATIVE REHAB AIDE CONSULT PRN WILL BE COMPLETED FOR THE [...] THE PERIOD OF INDEPENDENCE IN THE HOME. Reason for Visit INDEPENDENT IN THE COMMUNITY Encounters Start Date/Time End Date/Time Encounter Type Admission Type Attending [facility] Care Department Encounter ID Discharge Date Discharge Status Discharge Condition Discharge Reason Percent Goals Met 2024-07-24 00:00:00 2024-08-20 00:00:00 Outpatient NEW ADMISSION FLAKITA HILARIO [facility] [id number] 2024-08-20 00:00:00 DISCHARGE TO HOME OR SELF CARE INDEPENDEN T IN THE COMMUNITY NO SIGNING PHYSICIAN (HH ONLY) 57.69
--- OUTSIDE RECORDS SUMMARY | 2024-09-01 09:56 | XMS_ITS | Clinical Summary ---
Author Organization [facility] Address [address] [place] [address] Phone Care Team Providers Care District Scout Executive Name Role Phone Marek Sullivan MD Primary Care Provider Allergies Active Allergy Reactions Criticality Noted Date Comments Sulfa (Sulfonamide Antibiotics) 06/22 Medications dextromethorpha n-guaiFENesin (ROBITUSSIN-DM) 10-100 mg/5 mL syrup Take 10 mL by mouth every 4 (four) hours if needed for cough. 240 mL 4 Active nicotine (NICODERM CQ) 7 mg/[address] 1 patch on the skin 1 (one) time each day for 14 days. 14 each 5 Active albuterol HFA (ProAir HFA) 90 mcg/actuation inhaler Inhale 2 puffs by mouth every 4 (four) hours if needed for wheezing or shortness of breath. 8.5 g 4 07/21/20 25 Active Active Problems Problem Noted Date Diagnosed Date Dyspnea, unspecified type 07/19/2024 Resolved Problems Problem Noted Date Diagnosed Date Resolved Date SOB (shortness of breath) 07/18/2024 Encounters Date Type Department Care Team Description 07/18/2024 8:24 PM EST - 07/21/2024 4:09 PM EST Hospital Encounter [facility] [address] [place] [address] Garza, Ting Ho DO Zechariah Rodriguez Rizwan, MD Surendran, Anupama, MD Kela, Kashyap [...] Assigned at Male 07/18/2024 9:55 PM EST Legal Sex Male 8:07 PM EST Gender Identity Male 07/18/2024 9:55 PM EST Sexual Orientation Straight 07/18/2024 9: 55 PM EST Obstetrics History Last Filed Vital Signs Vital [...] Health Maintenance Due Date Last Done Comments DTaP,Tdap,and Td Vaccines (1 - Tdap) 1963 Hepatitis A Vaccines (1 of 2 - Risk 2-dose series) 1975 Pneumococcal Vaccine: 50+ Years (1 of 2 - PCV) 1975 Zoster Vaccines (1 of 2) 2006 COVID-19 Vaccine (5 - season) 2024 06/08/2022, 06/09/2021, 10/20/2020, Additional history exists Influenza Vaccine (#1) 2024 2, 06/09/2021, 06/11/2017 Abdominal Aortic Aneurysm (AAA) Screen [...] patient's age to complete this topic Meningococcal B Vacine Aged Out No lo nger eligible based on patient's age to complete [...] of8 resultswithin the time period is included. Pathologist [facility] Glucose POCT 182(H) 70 - 100 mg/dL 07/21/2024 11:12 AM EST [facility] Blood Capillary blood specimen / Unknown 07/21/2024 11:12 AM EST 07/21/2024 11:13 AM EST us Robin Soto MD LAB POINT OF CARE TE ST DOCKED DEVICE UNSOLICITED RESULTS Final Result Performing Organization Address City/State/[facility] Co de Phone Number [facility] [address] [place] [address], * (ABNORMAL) Procalcitonin (07/21/2024 7:40 AM EST) Pathologist [facility] Procalcitonin 6.46(H) <=0.16 ng/mL LAB CHEMISTRY METHOD 07/21/2024 12:31 PM EST [facility] Blood Venous blood specimen / Unknown Venipuncture / Unknown 07/21/2024 7:40 AM EST 07/21/2024 7:52 AM EST Narrative [facility] - 07/21/2024 12:31 PM EST Procalcitonin [...] ng/mL are obtained. Dilan SALINAS LAB BLOOD ORDERABLES Ju riley Result [facility] [address] [place] [address], * (ABNORMAL) CBC auto differential (07/21/2024 7:40 AM EST) Only the most recent of4 resultswithin the time period is included. WBC 12.3(H) 4.8 - 10.8 K/mcL LAB HEMETOLOGY METHOD 07/21/2024 8:26 AM EST [facility] RBC 3.80(L) 4.50 - 5.50 M/mcL LAB HEMETOLOGY METHOD 07/21/2024 8:26 AM EST [facility] Hemoglobin 12.4(L) 13.5 - 17.5 g/dL LAB HEMETOLOGY METHOD 07/21/2024 8:26 AM EST [facility] Hematocrit 36.2(L) 42.0 [...] LAB HEMETOLOGY METHOD 07/21/2024 8:26 AM EST [facility] Immature Granulocytes Relative 0.9 % LAB HEMETOLOGY METHOD 07/21/2024 8:26 AM EST [facility] Neutrophils Absolute 10.74(H) 1.50 - 7.00 K/mcL LAB HEMETOLOGY METHOD 07/21/2024 8:26 AM EST [facility] Lymphocytes Absolute 0.79(L) 1.00 - 5.00 K/mcL LAB HEMETOLOGY METHOD 07/21/2024 8:26 AM EST [facility] Monocytes Absolute 0.61 0.20 - 1.00 K/mcL LAB HEMETOLOGY METHOD 07/21/2024 8:26 AM EST [facility] Eosinophils Absolute 0.04 0.00 - 0.50 K/mcL LAB HEMETOLOGY METHOD 07/21/2024 8:26 AM EST [facility] Basophils Absolute 0.03 0.00 - 0.20 K/mcL LAB HEMETOLOGY METHOD 07/21/2024 8:26 AM EST [facility] Immature Granulocytes Absolute 0.11(H) 0.00 - 0.03 K/mcL LAB HEMETOLOGY METHOD 07/21/2024 8:26 AM [facility] Blood Venous blood specimen / Unknown Venipuncture / Unknown 07/21/2024 7:40 AM EST 07/21/2024 7:52 AM EST us Cherry SALINAS LAB BLOOD ORDERABLES Final Result [facility]) [facility] [address] [place] [address], * (ABNORMAL) Insulin, fasting (07/21/2024 7:40 AM EST) Insulin 1.7(L) 3.0 - 25.0 mcIU/mL LAB CHEMISTRY METHOD 07/21/2024 8:41 AM EST [facility] Blood Venous blood specimen / Unknown Venipuncture / Unknown 07/21/2024 7:40 AM EST 07/21/2024 7:52 AM EST Narrative [facility] - 07/21/2024 8:41 AM EST Insulin reference range based on fasting status. ??Insulin values vary in non- fasting individuals. [facility] LAB BLOOD ORDERABLES Ju l Result Performing Organization Address [facility]/ZIP Co de Phone Number [facility] [address] [place] [address], * C-peptide (07/21/2024 7:40 AM EST) C-Peptide 0.92 0.80 - 3.90 ng/mL LAB CHEMISTRY METHOD 07/21/2024 9:50 AM EST [facility] Blood Venous blood specimen / Unknown Venipuncture / Unknown 07/21/2024 7:40 AM EST 07/21/2024 7:52 AM EST [facility] BLOOD ORDERABLES Ju l Result Performing Organization Address City/[facility]/ZIP Co de Phone Number [facility] [address] [place] [address], * (ABNORMAL) Magnesium (07/21/2024 7:40 AM EST) Only the most recent of3 resultswithin the time period is included. Magnesium 1.6(L) 1.9 - 2.6 mg/dL LAB CHEMISTRY METHOD 07/21/2024 8:29 AM EST [facility] Blood Venous blood specimen / Unknown Venipuncture / Unknown 07/21/2024 7:40 AM EST 07/21/2024 7:52 AM EST Cherry SALINAS LAB BLOOD ORDERABLES Final Result Performing Organization Address City/[facility]/ZIP Co de Phone Number [facility] [address] [place] [address], [place] [phone] * Cortisol (07/21/2024 7:40 AM EST) Pathologist [facility] Cortisol 21.0 mcg/dL LAB CHEMISTRY METHOD 07/21/2024 8:41 AM EST [facility] Blood Venous blood specimen / Unknown Venipuncture / Unknown 07/21/2024 7:40 AM EST 07/21/2024 7:52 AM EST Narrative [facility] - 07/21/2024 8:41 AM EST CORTISOL REFERENCE RANGE ?? 8 AM SPEC: ??5.0-23.0 mcg/dL ?? 4 PM SPEC: ??3.0-16.0 mcg/dL ?? 8 PM SPEC: ??<5.0 mcg/dL Dilan SALINAS LAB BLOOD ORDERABLES Ju l Result Performing Organization Address City/[facility]/ZIP Co de Phone Number [facility] [address] [place] [address], [place] [phone] * (ABNORMAL) Hepatic function panel (07/21/2024 7:40 AM EST) Only the most recent of2 resultswithin the time period is included. Pathologist [facility] Total Protein 4.5(L) 6.0 - 8.0 g/dL LAB CHEMISTRY METHOD 07/21/2024 9:42 AM EST [facility] Albumin 2.1(L) 3.2 - 5.0 g/dL LAB CHEMISTRY METHOD 07/21/2024 9:42 AM [facility] Total Bilirubin 0.6 0.0 - 1.4 mg/dL LAB CHEMISTRY METHOD 07/21/2024 9:42 AM EST [facility] Comment:Results verified by [...] 7:52 AM EST Dilan SALINAS LAB BLOOD ORDERABLES Ju l Result [facility] [address] [place] [address], * (ABNORMAL) Basic metabolic panel (07/21/2024 7:40 AM EST) Only the most recent of4 resultswithin the time period is included. Sodium 139 133 - 145 mmol/L LAB [...] 7:52 AM EST Cherry SALINAS LAB BLOOD ORDERABLES Final Result [facility] [address] [place] [address], * HIV 1,2 antibody, p24 antigen with reflex to differentiation (07/20/2024 6:06 AM EST) HIV Combo AB/AG Negative Negative LAB CHEMISTRY METHOD 07/20/2024 3:01 PM [facility] Blood Venous blood specimen / Unknown Venipuncture / Unknown 07/20/2024 6:06 AM EST 07/20/2024 7:02 AM EST [facility] - 07/20/2024 3:01 PM EST [...] for HIV screening. Dilan SALINAS LAB BLOOD ORDERABLES Ju riley Result [facility] [address] [place] [address], [place] [phone] * (ABNORMAL) Manual differential (07/20/2024 6:06 AM EST) Only the most recent of3 resultswithin the time period is included. Neutrophils % 79.0 % LAB HEMETOLOGY METHOD [...] Present( A) Consistent with indices, Normal for [place] LAB HEMETOLOGY METHOD 07/20/2024 8:58 AM [facility] Comment:RBC: Morphology agre es with CBC Platelet Morphology - WAM See Note(A) Normal LAB HEMETOLOGY METHOD 07/20/2024 8:58 AM [facility] Comment:PLT: Normal Toxic Granules Present Present( A) (none) LAB HEMETOLOGY METHOD 07/20/2024 8:58 AM [facility] Vacuolated Neutrophils Present Present( A) (none) LAB HEMETOLOGY METHOD 07/20/2024 8:58 AM [facility] Dohle Body Present Present( A) (none) LAB HEMETOLOGY METHOD 07/20/2024 8:58 AM [facility] Blood Venous blood specimen / Unknown Venipuncture / Unknown 07/20/2024 6:06 AM EST 07/20/2024 7:03 AM EST Cherry Guillen PA LAB BLOOD ORDERABLES Final Result Performing Organization Address [facility]/ZIP Co de Phone Number [facility] [address] [place] [address], [place] [phone] * Thyroid stimulating hormone (07/20/2024 6:06 AM EST) [facility] TSH 2.70 0.40 - 4.00 mcIU/mL LAB CHEMISTRY METHOD 07/20/2024 7:13 PM EST [facility] Blood Venous blood specimen / Unknown Venipuncture / Unknown 07/20/2024 6:06 AM EST 07/20/2024 7:02 AM EST Dilan SALINAS LAB BLOOD ORDERABLES Ju l Result Performing Organization Address [facility] Co de Phone Number [facility] [address] [place] [address], [place] [phone] * ECG 12 lead (07/19/2024 1:17 PM EST) Only the most recent of3 resultswithin the time period is included. [facility] Ventricular Rate ECG 115 BPM GEMUSE Atrial Rate 115 BPM GEMUSE P-R Interval 140 ms GEMUSE QRS Duration 82 ms GEMUSE Q-T Interval 290 ms GEMUSE QTc 401 ms GEMUSE P Wave Gable 67 degrees GEMUSE R Gable 77 degrees GEMUSE T Gable 64 degrees GEMUSE ECG Interpretation Sinus tachycardia Biatrial enlargement Anterior infarct (cited on or before 18-JUL-2024) Abnormal ECG When compared with ECG of 18-JUL-2024 21:25, Premature ventricular complexes are no longer Present Confirmed by MD Anibal, Krsi ([id number]) on 07/20/2024 8:56:03 AM GEMUSE 07/19/2024 1:17 PM EST 07/20/2024 8:56 AM EST us Cherry SALINAS ECG ORDERABLES Final Resu lt GEMUSE * CT Chest wo Contrast (07/19/2024 [...] by: Eleuterio Leong MD on 07/19/2024 19:31:13 us Cherry SALINAS IMG CT PROCEDURES Final Re sult * Mycoplasma pneumoniae antibody IgM (07/19/2024 4:47 AM EST) [facility] Mycoplasma Antibody IgM 0.53 <=0.90 INDEX 07/22/2024 6:06 AM EST [facility] Comment: Negative: No antibody detected Test performed at [facility], [address] , [place], [place] ??[address] ? [phone] Michelle Stewart MD, PhD - Export Manager Blood Venous blood specimen / Unknown Venipuncture / Unknown 07/19/2024 4:47 AM EST 07/19/2024 5:11 AM EST Pino Apple MD LAB BLOOD ORDERABLES Final Res ult [facility] [address] [place] [address] * ECG-Annotated (07/19/2024) Provider Onbase ECG ORDERABLES Final Result * Respiratory virus panel molecular study (07/18/2024 11:54 PM EST) [facility] Adenovirus Detection by PCR Not Detected Not Detected LAB MICROBIOLOGY METHOD 07/19/2024 12:59 AM EST [facility] Influenza A PCR Not Detected Not Detected LAB MICROBIOLOGY METHOD 07/19/2024 12:59 AM EST [facility] Influenza B PCR Not Detected Not Detected LAB MICROBIOLOGY METHOD 07/19/2024 12:59 AM [facility] Coronavirus 229E Not Detected Not Detected [...] 12:59 AM [facility] Swab Both anterior nares / Unknown Non-blood Collection / Unknown 07/18/2024 11:54 PM EST 07/19/2024 12:04 AM [facility] - 07/19/2024 12:59 AM EST Testing was performed using the [employer] Respiratory Pathogen PCR Assay. All results must [...] detection. Pino Apple MD LAB MICROBIOLOGY - GENERAL ORD ERABLES Final Result Performing Organization Address [facility] Co de Phone Number [facility] [address] [place] [address], * Legionella antigen urine, EIA (07/18/2024 10:24 PM EST) [facility] Legionella Antigen, Ur Negative Negative 07/18/2024 11:13 PM EST [facility] Urine Urine specimen obtained by clean catch procedure / Unknown Non-blood Collection / Unknown 07/18/2024 10:24 PM EST 07/18/2024 10:50 PM EST Narrative [facility] - 07/18/2024 11:13 PM EST Negative for Legionella pneumophilia serogroup 1 antigen. This presumptive result suggests no current or recent infection due to L. pneumophilia serogroup 1. Culture is recommended if Legionella infection is till suspected, as other serogroups and species of Legionella are not detected by this test. Pino Apple MD LAB URINE ORDERABLES Final Res ult Performing Organization Address [facility] Co de Phone Number [facility] [address] [place] [address], * Troponin I high sensitivity (07/18/2024 9:36 PM EST) Only the most recent of2 resultswithin the time period is included. [facility] High Sensitivity Troponin I 15 <=79 ng/L LAB CHEMISTRY METHOD 07/18/2024 10:07 PM EST [facility] Blood Venous blood specimen / Unknown Venipuncture / Unknown 07/18/2024 9:36 PM EST 07/18/2024 9:42 PM EST Narrative [facility] [place] ([facility]) [facility] - 07/18/2024 10:07 PM EST High levels of biotin in samples may falsely decrease hsTroponin values. ??Use caution when interpreting hsTroponin results in patients taking biotin who exhibit renal impairment (eGFR <60) or in patients taking more than 20 mg/day of biotin. us Karyna Garza DO LAB BLOOD ORDERABLES Ju l Result [facility] [address] [place] [address], [place] [phone] * XR Chest 1 View (07/18/2024 9:29 PM EST) Anatomical Region Laterality Modality Body Radiographic Pao ging 07/19/2024 7:23 AM EST Impressions 07/19/2024 7:24 AM EST Right midlung consolidation. -------- FINAL REPORT -------- Dictated By: Barry Arellano Dictated Date: 07/19/2024 07:23 ET Assigned Physician: Barry Arellano Reviewed and Electronically Signed By: Barry Arellano Signed Date: 07/19/2024 07:24 ET Workstation ID: [id number] Transcribed By: Self Edit Transcribed Date: 07/19/2024 [...] Signed Date: 07/19/2024 07:24 ET Workstation ID: [id number] Transcribed By: Self Edit Transcribed Date: 07/19/2024 07:23 ET us Karyna Heaton Michael Garza DO IMG XR PROCEDURES Final R esult * (ABNORMAL) B-type natriuretic peptide (07/18/2024 8:38 PM EST) BNP 320(H) <=100 pcg/mL LAB CHEMISTRY METHOD 07/18/2024 9:19 PM EST [facility] Blood Venous blood specimen / Unknown Venipuncture / Unknown 07/18/2024 8:38 PM EST 07/18/2024 8:43 PM EST Karyna Heaton Michael Garza DO LAB BLOOD ORDERABLES Ju l Result [facility] [address] [place] [address], from Last 3 Months Insurance MEDICARE Advance Directives * Full Code - Default [...] currently active code status orders. Care Teams District Scout Executive Relationship Specialty Start Date End Date Marek Sullivan MD [address] [place] [address] Dr [address] [place] PCP - General Internal Medicine 07/18/24
--- OUTSIDE RECORDS SUMMARY | 2024-09-01 09:56 | XMS_ITS | Clinical Summary ---
Author Organization Unknown Care Team Providers Care Lozenge Maker Helper Name Role Phone IVANIA REGIONAL ECONOMIST, JF Unavailable Unavailable YANELIS RN, ADMISSION NURSE, FLAKITA Unavail able Unavailable SHYANNE TOWNSEND LPN, DESHAWN Unavailable Unavafrancia lable Payers Payer Name Policy Type Policy Number Effective Date Expira tion Date MEDIC[place] - [place] [id number] Problems Condition Name Condition Details Condition Category [...] on aerosol inhaler - 00:00: 00 Yes [id number] 2 puff EVERY 4 HOURS 2 puff EVERY 4 HOURS (route: inhalation ) Med Classific ation: Respirato ry Therapy Agents doxycycline hyclate 100 mg capsule 2023-07 00:00: 00 07-26 23:59 :00 No [id number] 1 capsule 2 TIMES DAILY 1 capsule 2 TIMES DAILY (route: oral) Med Classific ation: Anti-Infe ctive Agents levofloxaci n 750 mg tablet 2023-07 00:00: 00 07-26 23:59 :00 No [id number] 1 tablet DAILY 1 tablet DAILY (route: oral) Med Classific ation: Anti-Infe ctive Agents nicotine 7 mg/24 hr daily transdermal patch 07-24 00:00: 00 Yes [id number] 1 patch, transde rmal 24 hours DAILY 1 patch, transderma l 24 hours DAILY (route: transderma l) Med Classific ation: Chemical Dependenc y, Agents to Treat potassium chloride ER 10 mEq tablet,exte nded release 2023-07 00:00: 00 07-26 23:59 :00 No [id number] 4 tablet DAILY 4 tablet DAILY (route: oral) Med Classific ation: Electroly te Balance-N utritiona l Products Tussin Cough (DM only) 15 mg/5 mL oral liquid 2023-07 00:00: 00 Yes [id number] Per instruc tions O2 - PRN Per [...] PATIENT FOR SECONDARY INSURANCE EDUCATION [code = PLUMBING AND HEATING CONTRACTOR TO EVALUATE PATIENT FOR SECONDARY INSURANCE EDUCATION [...] MAINTAIN SITUATIONAL AWARENESS AND WILL NOTIFY CLINICAL FIELD BROOMER AND PHYSICIAN/PROVIDER WITH ANY CHANGE IN CONDITION. [code = SKILLED NURSE TO PERFORM ENVIRONMENTAL SAFETY RISK ASSESSMENT AND FALL RISK ASSESSMENT AND PROVIDE INSTRUCTION TO IMPLEMENT ENVIRONMENTAL SAFETY AND FALL PREVENTION STRATEGIES THROUGHOUT THE CERTIFICATION PERIOD. SKILLED NURSE WILL MAINTAIN SITUATIONAL AWARENESS AND WILL NOTIFY CLINICAL FIELD BROOMER AND PHYSICIAN/PROVIDER WITH ANY CHANGE IN CONDITION.] [...] DEVELOP A PLAN OF CARE SUMMARY OF SCRIPT MANAGER EVAL/ASSESSMENT FINDINGS AND REASON(S) ASSISTANT LOAN PROCESSOR IS INDICATED: SCRIPT MANAGER EVALUATION: MAAME IS A 68 YEAR OLD MALE REFERRED TO [facility] FOLLOWING HOSPITALIZATION FOR R LOBE. SCRIPT MANAGER FACILITATED COMMUNITY RESOURCE ASSESSMENT AND LTC PLANNING [...] ABUSE ISSUES. HE IS CURRENT SMOKER. INTERVENTION: NANEMARIE MAIN CONCERN AT THIS TIME IS INSURANCE. HE REPORTS HE HAS MEDICARE BUT NO OTHER SUPPLEMENTAL INSURANCE. MAAME MAY POSSIBLY QUALIFY FOR Z[place]. SCRIPT MANAGER PLANS TO COMPLETE APPLICATION WITH PATIENT ON NEXT VISIT. SCRIPT MANAGER WILL FOLLOW UP 2 X FOR FURTHER RESOURCE SUPPORT. MEDICAL BEHAVIORAL PSYCHOLOGIST FOR COMMUNITY RESOURCE PLANNING. [code = MEDICAL BEHAVIORAL PSYCHOLOGIST FOR EVALUATION TO ASSESS SOCIAL AND EMOTIONAL FACTORS RELATED TO THE PATIENT'S ILLNESS, NEED FOR CARE, RESPONSE TO TREATMENT AND ADJUSTMENT TO CARE; TO BE FOLLOWED BY COLLABORATION WITH THE PHYSICIAN AND NURSE TO DEVELOP A PLAN OF CARE SUMMARY OF SCRIPT MANAGER EVAL/ASSESSMENT FINDINGS AND REASON(S) ASSISTANT LOAN PROCESSOR IS INDICATED: SCRIPT MANAGER EVALUATION: MAAME IS A 68 YEAR OLD MALE [facility] FOLLOWING HOSPITALIZATION FOR R LOBE. SCRIPT MANAGER FACILITATED COMMUNITY RESOURCE ASSESSMENT AND LTC PLANNING [...] SUPPLEMENTAL INSURANCE. MAAME MAY POSSIBLY QUALIFY FOR ZALORA. SCRIPT MANAGER PLANS TO COMPLETE APPLICATION WITH PATIENT ON NEXT VISIT. SCRIPT MANAGER WILL FOLLOW UP 2 X FOR FURTHER RESOURCE SUPPORT. MEDICAL BEHAVIORAL PSYCHOLOGIST FOR COMMUNITY RESOURCE PLANNING.] Goal 2024-08-20 Patient Goal - TO FEEL FAUSTO R Goal Provider Goal - A PLAN OF CARE WILL BE ESTABLISHED THAT MEETS PATIENT'S RESIDENTIAL NEEDS AND INCLUDES PATIENT GOAL FOR HOME HEALTH. Goal Provider Goal - PATIENT/CAREGIVER WILL VERBALIZE UNDERSTANDING OF EDUCATION PROVIDED ON MEDICATIONS BY THE END OF THE CERTIFICATION PERIOD. Goal Provider Goal - PLUMBING AND HEATING CONTRACTOR TO COMPLETE EVALUATION TO ADDRESS THE PATIENTS [...] EPISODE. Goal Provider Goal - A MEDICAL BEHAVIORAL PSYCHOLOGIST CONSULT PRN WILL BE COMPLETED FOR THE [...] End Date/Time Encounter Type Admission Type Attending [facility] Care Department Encounter ID Discharge Date Discharge Status Discharge Condition Discharge Reason Percent Goals Met 2024-07-24 00:00:00 2024-08-20 00:00:00 Outpatient NEW ADMISSION FLAKITA HILARIO [facility] [id number] 2024-08-20 00:00:00 DISCHARGE TO HOME OR SELF CARE INDEPENDEN T IN THE COMMUNITY NO SIGNING PHYSICIAN (HH ONLY) 57.69
== END 2024-09-01 09:55 | disposition home or self-care (01) ==
DX: Z00.00 Encounter for general adult medical examination without abnormal findings (principal); J43.9 Emphysema, unspecified; Z12.11 Encounter for screening for malignant neoplasm of colon; Z12.12 Encounter for screening for malignant neoplasm of rectum; E55.9 Vitamin D deficiency, unspecified; E78.00 Pure hypercholesterolemia, unspecified; I51.7 Cardiomegaly; I49.9 Cardiac arrhythmia, unspecified; R05.9 Cough, unspecified

== ENCOUNTER 2024-09-29 10:55 | Outpatient (AMB) | payer MEDICARE, SELFPAY ==
[2024-09-29 10:56] VITALS: BP 110/60; PULSE 77; O2SAT 95; BMI 19.7
--- NOTE | 2024-09-29 10:56 | A.OFFVIS_ITS ---
Vital Signs 09/29/24 10:56 Height 5 ft 2.6 in Weight 110 lb BMI 19.7 BP 110/60 Blood Pressure Location Rt brachial Position Sitting Pulse 77 Pulse Source Doppler Pulse Oximetry (%) 95 Oxygen Delivery Method Room Air Intake Visit Reasons: copd Allergies Sulfa (Sulfonamide Antibiotics) [SULFA (SULFONAMIDE ANTIBIOTICS)] Allergy (Intermediate, Verified 09/29/24 11:02) RASH codeine [CODEINE] Adverse Reaction (Mild, Verified 09/29/24 11:02) Vomiting HPI HPI copd: Details: 69-year-old gentleman, recent 50 pack-year smoker, with recent history of pneumonia of 2023, now recovered to baseline referred for pulmonary evaluation. Patient denies dyspnea on exertion, cough, or sputum production. He denies family history of lung diseases. 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 [facility] Surgical History History of hernia surgery Social History (Updated 09/29/24 @ 11:05 by Lisa Orozco [facility]) Housing: House Alcohol intake: never Patient Tobacco Use Status: Former Tobacco user Tobacco use type: Cigarette Years Smoked: started age 19, 1PPD, quit June 2024 e-Cigarette/Vaping Use: Never Used Second Hand Smoke Exposure: Yes service: No Current occupational status: retired Cognitive needs: No Hearing needs: No Vision needs: Yes (Glasses) Review of Systems Const Denies daytime sleepiness, Denies excessive sweating, Denies fatigue, Denies fever(s), Denies lethargy, Denies malaise, Denies night sweats, Denies snoring and Denies weight loss Eyes Denies blurry vision and Denies itchy eyes ENT Denies nasal congestion, Denies post nasal drip, Denies sinus pain, Denies sinus pressure and Denies other ( Thrush) Card Denies chest pain, Denies pedal edema, Denies dyspnea, Denies orthopnea and Denies paroxysmal nocturnal dyspnea Resp Denies cough, Denies hemoptysis, Denies excessive phlegm production, Denies dyspnea, Denies snoring and Denies wheezing GI Denies abdominal pain and Denies heartburn Musc Denies myalgias, Denies arthralgias and Denies joint swelling Skin/Breast Denies rash Neuro Denies memory loss and Denies seizure-like activity Psych Denies abnormal sleep pattern, Denies anxiety and Denies memory loss Endo Denies excessive sweating, Denies fatigue and Denies heat intolerance Kervin/Lymph Denies easy bruising Aller/Immun Denies itchy eyes, Denies seasonal rhinorrhea and Denies wheezing Physical Exam Vital Signs: Last Vital Signs Pulse 77 09/29/24 10:56 BP 110/60 09/29/24 10:56 Pulse Ox 95 09/29/24 10:56 Oxygen Delivery Method Room Air 09/29/24 10:56 BMI result Body Mass Index 19.7 Const General: no acute distress and alert Nutritional Appearance: not obese Orientation/consciousness: Other orientation findings ( oriented) HEENT Head: Yes atraumatic Eyes General: appearance normal, both eyes and all related structures Sclerae: sclerae normal EOM: EOMs intact bilaterally Neck Neck: Yes supple Lymphatic: no lymphadenopathy noted Resp Effort & Inspection: normal respiratory effort and no use of accessory muscles Auscultation: clear to auscultation bilaterally Cardio Rate: regular rate Rhythm: regular rhythm Heart sounds: no gallops, no murmurs and no rubs Skin General skin exam: other ( warm) Extrem General: No clubbing, No cyanosis and No edema Assessment & Plan Assessment & Plan (1) COPD (chronic obstructive pulmonary disease): Code(s): J44.9 - Chronic obstructive pulmonary disease, unspecified Category: Medical Qualifiers: COPD type: unspecified COPD Qualified Code(s): J44.9 - Chronic obstructive pulmonary disease, unspecified Plan: Likely underlying COPD of unclear severity. Will obtain full PFT. (2) Personal history of nicotine dependence: Code(s): Z87.891 - Personal history of nicotine dependence Category: Medical Plan: Will obtain lung cancer screening CT chest. Orders: Orders PFT pulmonary function test Today J44.9 - Chronic obstructive pulmonary disease, unspecified CT lung screening Today Z87.891 - Personal history of nicotine dependence Coding Level of Care Code New Pt Level 4 (25304) Diagnoses Chronic obstructive pulmonary disease, unspecified COPD type J44.9 COPD type: unspecified COPD Personal history of nicotine dependence Z87.891
--- OUTSIDE RECORDS SUMMARY | 2024-09-29 13:24 | XMS_ITS | Patient Health Record ---
Author Organization [facility] Address [address] [place] [address] Care Team Providers Care Talent Sourcer Name Role Phone Jalen Padron MD Primary Care Provider Ruddy Mckeon Jr, Leon Jordan Allergies Allergen (clinical drug ingredient) Drug/Non Drug Allergy documented on EMR Reaction Allergy Type Onset Date Status Sulfa Unknown Drug Allergy Active codeine Codeine Sulfate Unknown Drug Allergy A ctive Reason For Referral No Information Medications Medication SIG (Take, Route, Frequency, Duration) Notes Start Date End Date Status Colyte with Flavor Packs 240 GM As directed Orally Over the specified time. for 1 day(s) 05/08/2013 07/22/2024 Active Problems Problem Type SNOMED Code ICD Code Onset Dates Problem Status W/U Status Risk Notes Problem Pruritus ani (72132774) Pruritus ani (698.0) Active confirmed Problem Colon cancer screening (141619730) Colon cancer screening (V76.51) Active confirmed Plan Of Treatment Future Test Test Name Order Date COLONOSCOPY 05/08/2013 Next Appt Details Provider Name:Leon barriga Jr, 12/24/2024 01:35:00 PM, [address], [address], [place], [address], Insurance Providers Payer Name Payer Address Payer Phone Subscriber Number Group Number Insured Name Patient Relationship to Insured Coverage Start Date Coverage End Date MEDICARE OF [employer] [address] [place] [address] [id number] MAAME CAMPBELL Self - patient is the insured Medical (General) History Medical History History ICD Code nephrolithiasis Denies SC,DM,CVA,Lung disease,renal dise ase Surgical History Surgery Date(Month/Year) jaw surgery lithotripsy
--- OUTSIDE RECORDS SUMMARY | 2024-09-29 13:24 | XMS_ITS | Clinical Summary ---
Author Organization [facility] Address [address] [place] [address] Phone Care Team Providers Care Angiographer Name Role Phone Marek Sullivan MD Primary [...] - 07/21/2024 4:09 PM EST Hospital Encounter [facility] [address] [place] [address] Garza, Ting Ho DO Zechariah [...] Comments DTaP,Tdap,and Td Vaccines (1 - Tdap) 1975 [...] CORTISOL Routine 07/21/2024 7:40 AM EST INSULIN, TOTAL Routine 07/21/2024 7:40 AM EST C-PEPTIDE Routine [...] resultswithin the time period is included. Pathologist [facility] Glucose POCT 182(H) 70 - 100 mg/dL 07/21/2024 11:12 AM EST [facility] Blood Capillary blood specimen / Unknown 07/21/2024 11:12 AM EST 07/21/2024 11:13 AM EST us Robin Soto MD LAB POINT OF CARE TE ST DOCKED DEVICE UNSOLICITED RESULTS Final Result Performing Organization Address City/State/[facility] Co de Phone Number [facility] [address] [place] [address], * (ABNORMAL) Procalcitonin (07/21/2024 7:40 AM EST) Pathologist [facility] Procalcitonin 6.46(H) <=0.16 ng/mL LAB CHEMISTRY METHOD 07/21/2024 12:31 PM EST [facility] Blood Venous blood specimen / Unknown Venipuncture / Unknown 07/21/2024 7:40 AM EST 07/21/2024 7:52 AM EST Narrative [facility] - 07/21/2024 12:31 PM EST [...] SALINAS LAB BLOOD ORDERABLES Ju riley Result [facility] [address] [place] [address], * (ABNORMAL) CBC auto differential (07/21/2024 7:40 AM EST) Only the most recent of4 resultswithin the time period is included. WBC 12.3(H) 4.8 - 10.8 K/mcL LAB HEMETOLOGY METHOD 07/21/2024 8:26 AM EST [facility] RBC 3.80(L) 4.50 - 5.50 M/mcL LAB HEMETOLOGY METHOD 07/21/2024 8:26 AM EST [facility] Hemoglobin 12.4(L) 13.5 - 17.5 g/dL LAB HEMETOLOGY METHOD 07/21/2024 8:26 AM EST [facility] Hematocrit 36.2(L) 42.0 - 54.0 % LAB HEMETOLOGY METHOD 07/21/2024 8:26 AM [facility] MCV 95.3 79.0 - 98.0 FL LAB HEMETOLOGY METHOD 07/21/2024 8:26 AM [facility] MCH 32.6(H) 27.0 - 32.0 pcg LAB HEMETOLOGY METHOD 07/21/2024 8:26 AM [facility] MCHC 34.3 32.0 - 37.0 g/dL LAB HEMETOLOGY METHOD 07/21/2024 8:26 AM [facility] RDW 13.0 11.0 - 15.0 % LAB HEMETOLOGY METHOD 07/21/2024 8:26 AM [facility] Platelets 118(L) 130 - 400 K/mcL LAB HEMETOLOGY METHOD 07/21/2024 8:26 AM [facility] MPV 10.7 7.0 - 11.0 FL LAB HEMETOLOGY METHOD 07/21/2024 8:26 AM [facility] NRBC 0.0 <1.0 % LAB HEMETOLOGY METHOD 07/21/2024 8:26 AM [facility] NRBC Absolute 0.00 <0.10 K/mcL LAB HEMETOLOGY METHOD 07/21/2024 8:26 AM [facility] Neutrophils Relative 87.2 % LAB HEMETOLOGY METHOD 07/21/2024 8:26 AM [facility] Lymphocytes Relative 6.4 % LAB HEMETOLOGY METHOD 07/21/2024 8:26 AM [facility] Monocytes Relative 5.0 % LAB HEMETOLOGY METHOD 07/21/2024 8:26 AM [facility] Eosinophils Relative 0.3 % LAB HEMETOLOGY METHOD 07/21/2024 8:26 AM [facility] Basophils Relative 0.2 % LAB HEMETOLOGY METHOD 07/21/2024 8:26 AM EST [facility] Immature Granulocytes Relative 0.9 % LAB HEMETOLOGY METHOD 07/21/2024 8:26 AM EST [facility] Neutrophils Absolute 10.74(H) 1.50 - 7.00 K/mcL LAB HEMETOLOGY METHOD 07/21/2024 8:26 AM EST [facility] Lymphocytes Absolute 0.79(L) 1.00 - 5.00 K/mcL LAB HEMETOLOGY METHOD 07/21/2024 8:26 AM EST [facility] Monocytes Absolute 0.61 0.20 - 1.00 K/mcL LAB HEMETOLOGY METHOD 07/21/2024 8:26 AM EST [facility] Eosinophils Absolute 0.04 0.00 - 0.50 K/mcL LAB HEMETOLOGY METHOD 07/21/2024 8:26 AM EST [facility] Basophils Absolute 0.03 0.00 - 0.20 K/mcL LAB HEMETOLOGY METHOD 07/21/2024 8:26 AM EST [facility] Immature Granulocytes Absolute 0.11(H) 0.00 - 0.03 K/mcL LAB HEMETOLOGY METHOD 07/21/2024 8:26 AM [facility] Blood Venous blood specimen / Unknown Venipuncture / Unknown 07/21/2024 7:40 AM EST 07/21/2024 7:52 AM EST us Cherry SALINAS LAB BLOOD ORDERABLES Final Result [facility] [address] [place] [address], * (ABNORMAL) Insulin, fasting (07/21/2024 7:40 AM EST) Insulin 1.7(L) 3.0 - 25.0 mcIU/mL LAB CHEMISTRY METHOD 07/21/2024 8:41 AM EST [facility] Blood Venous blood specimen / Unknown Venipuncture / Unknown 07/21/2024 7:40 AM EST 07/21/2024 7:52 AM EST Narrative [facility] - 07/21/2024 8:41 AM EST Insulin reference range based on fasting status. ??Insulin values vary in non- fasting individuals. [facility] LAB BLOOD ORDERABLES Ju l Result Performing Organization Address [facility]/ZIP Co de Phone Number [facility] [address] [place] [address], * C-peptide (07/21/2024 7:40 AM EST) C-Peptide 0.92 0.80 - 3.90 ng/mL LAB CHEMISTRY METHOD 07/21/2024 9:50 AM EST [facility] Blood Venous blood specimen / Unknown Venipuncture / Unknown 07/21/2024 7:40 AM EST 07/21/2024 7:52 AM EST [facility] BLOOD ORDER[facility] Ju l Result Performing Organization Address City/[facility]/ZIP Co de Phone Number [facility] [address] [place] [address], * (ABNORMAL) Magnesium (07/21/2024 7:40 AM EST) Only the most recent of3 resultswithin the time period is included. Magnesium 1.6(L) 1.9 - 2.6 mg/dL LAB CHEMISTRY METHOD 07/21/2024 8:29 AM EST [facility] Blood Venous blood specimen / Unknown Venipuncture / Unknown 07/21/2024 7:40 AM EST 07/21/2024 7:52 AM EST Cherry SALINAS LAB BLOOD ORDERABLES Final Result Performing Organization Address City/[facility]/ZIP Co de Phone Number [facility] [address] [place] [address], [place] [phone] * Cortisol (07/21/2024 7:40 AM EST) Pathologist [facility] Cortisol 21.0 mcg/dL LAB CHEMISTRY METHOD 07/21/2024 8:41 AM EST [facility] Blood Venous blood specimen / Unknown Venipuncture / Unknown 07/21/2024 7:40 AM EST 07/21/2024 7:52 AM EST Narrative [facility] - 07/21/2024 8:41 AM EST CORTISOL REFERENCE RANGE ?? 8 AM SPEC: ??5.0-23.0 mcg/dL ?? 4 PM SPEC: ??3.0-16.0 mcg/dL ?? 8 PM SPEC: ??<5.0 mcg/dL Dilan SALINAS LAB BLOOD ORDERABLES Ju l Result Performing Organization Address City/[facility]/ZIP Co de Phone Number [facility] [address] [place] [address], [place] [phone] * (ABNORMAL) Hepatic function panel (07/21/2024 7:40 AM EST) Only the most recent of2 resultswithin the time period is included. Pathologist [facility] Total Protein 4.5(L) 6.0 - 8.0 g/dL LAB CHEMISTRY METHOD 07/21/2024 9:42 AM EST [facility] Albumin 2.1(L) 3.2 - 5.0 g/dL LAB CHEMISTRY METHOD 07/21/2024 9:42 AM [facility] Total Bilirubin 0.6 0.0 - 1.4 mg/dL LAB CHEMISTRY METHOD 07/21/2024 9:42 AM EST [facility] Comment:Results verified by repeat testing Bilirubin, Direct 0.1 0.0 - 0.3 mg/dL LAB CHEMISTRY METHOD 07/21/2024 9:42 AM [facility] Bilirubin, Indirect 0.5 0.0 - 1.1 mg/dL LAB CHEMISTRY METHOD 07/21/2024 9:42 AM [facility] ALT (SGPT) 19 10 - 60 unit/L LAB CHEMISTRY METHOD 07/21/2024 9:42 AM [facility] AST (SGOT) 32 10 - 42 unit/L LAB CHEMISTRY METHOD 07/21/2024 9:42 AM [facility] Alkaline Phosphatase 45 42 - 121 unit/L LAB CHEMISTRY METHOD 07/21/2024 9:42 AM [facility] Blood Venous blood specimen / Unknown Venipuncture / Unknown 07/21/2024 7:40 AM EST 07/21/2024 7:52 AM EST Dilan SALINAS LAB BLOOD ORDERABLES Ju l Result [facility] [address] [place] [address], * (ABNORMAL) Basic metabolic panel (07/21/2024 7:40 AM EST) Only the most recent of4 resultswithin the time period is included. Sodium 139 133 - 145 mmol/L LAB CHEMISTRY METHOD 07/21/2024 8:29 AM [facility] Potassium 3.2(L) 3.5 - 5.5 mmol/L LAB CHEMISTRY METHOD 07/21/2024 8:29 AM [facility] Chloride 104 96 - 110 mmol/L LAB CHEMISTRY METHOD 07/21/2024 8:29 AM [facility] CO2 28 21 - 32 mmol/L LAB CHEMISTRY METHOD 07/21/2024 8:29 AM [facility] Anion Gap 7 3 - 11 LAB CHEMISTRY METHOD 07/21/2024 8:29 AM [facility] Glucose 63(L) 70 - 100 mg/dL LAB CHEMISTRY METHOD 07/21/2024 8:29 AM [facility] BUN 11 5 - 25 mg/dL LAB CHEMISTRY METHOD 07/21/2024 8:29 AM [facility] Creatinine 0.45(L) 0.70 - 1.30 mg/dL LAB CHEMISTRY METHOD 07/21/2024 8:29 AM [facility] eGFR 115 >=60 mL/min/1. 73m2 LAB CHEMISTRY METHOD 07/21/2024 8:29 AM [facility] Comment:Calculation based on the??Chronic Kidney Disease Epidemiology Collaboration (CKD-EPI) equation refit??without adjustment for race. BUN/Creatinine Ratio 24.4 LAB CHEMISTRY METHOD 07/21/2024 8:29 AM [facility] Calcium 8.4(L) 8.5 - 10.5 mg/dL LAB CHEMISTRY METHOD 07/21/2024 8:29 AM [facility] Blood Venous blood specimen / Unknown Venipuncture / Unknown 07/21/2024 7:40 AM EST 07/21/2024 7:52 AM EST Cherry SALINAS LAB BLOOD ORDERABLES Final Result [facility] [address] [place] [address], * HIV 1,2 antibody, p24 antigen with reflex to differentiation (07/20/2024 6:06 AM EST) HIV Combo AB/AG Negative Negative LAB CHEMISTRY METHOD 07/20/2024 3:01 PM [facility] Blood Venous blood specimen / Unknown Venipuncture / Unknown 07/20/2024 6:06 AM EST 07/20/2024 7:02 AM EST [facility] - 07/20/2024 3:01 PM EST [...] SALINAS LAB BLOOD ORDERABLES Ju riley Result [facility] [address] [place] [address], [place] [phone] * (ABNORMAL) Manual differential (07/20/2024 6:06 AM EST) Only the most recent of3 resultswithin the time period is included. Neutrophils % 79.0 % LAB HEMETOLOGY METHOD 07/20/2024 8:58 AM [facility] Bands % 10.0 % LAB HEMETOLOGY METHOD 07/20/2024 8:58 AM [facility] Lymphocytes % 6.0 % LAB HEMETOLOGY METHOD 07/20/2024 8:58 AM [facility] Monocytes % 1.0 % LAB HEMETOLOGY METHOD 07/20/2024 8:58 AM [facility] Eosinophils % 0.0 % LAB HEMETOLOGY METHOD 07/20/2024 8:58 AM [facility] Basophils % 1.0 % LAB HEMETOLOGY METHOD 07/20/2024 8:58 AM [facility] Metamyelocytes % 4.0(H) % LAB HEMETOLOGY METHOD 07/20/2024 8:58 AM [facility] Neutrophils Absolute Manual 9.56(H) 1.50 - 7.00 K/mcL LAB HEMETOLOGY METHOD 07/20/2024 8:58 AM [facility] Bands Absolute Manual 1.21(H) 0.00 - 0.00 K/mcL LAB HEMETOLOGY METHOD 07/20/2024 8:58 AM [facility] Lymphocytes Absolute 0.73(L) 1.00 - 5.00 K/mcL LAB HEMETOLOGY METHOD 07/20/2024 8:58 AM [facility] Monocytes Absolute Manual 0.12(L) 0.20 - 1.00 K/mcL LAB HEMETOLOGY METHOD 07/20/2024 8:58 AM [facility] Eosinophils Absolute Manual 0.00 0.00 - 0.50 K/mcL LAB HEMETOLOGY METHOD 07/20/2024 8:58 AM [facility] Basophils Absolute Manual 0.12 0.00 - 0.20 K/mcL LAB HEMETOLOGY METHOD 07/20/2024 8:58 AM [facility] Metamyelocytes Absolute Manual 0.48(H) 0.00 - 0.00 K/mcL LAB HEMETOLOGY METHOD 07/20/2024 8:58 AM [facility] Rbc Morphology Present( A) Consistent with indices, Normal for [place] LAB HEMETOLOGY METHOD 07/20/2024 8:58 AM [facility] Comment:RBC: Morphology agre es with CBC Platelet Morphology - WAM See Note(A) Normal LAB HEMETOLOGY METHOD 07/20/2024 8:58 AM [facility] Comment:PLT: Normal Toxic Granules Present Present( A) (none) LAB HEMETOLOGY METHOD 07/20/2024 8:58 AM [facility] Vacuolated Neutrophils Present Present( A) (none) LAB HEMETOLOGY METHOD 07/20/2024 8:58 AM [facility] Dohle Body Present Present( A) (none) LAB HEMETOLOGY METHOD 07/20/2024 8:58 AM [facility] Blood Venous blood specimen / Unknown Venipuncture / Unknown 07/20/2024 6:06 AM EST 07/20/2024 7:03 AM EST Cherry Guillen PA LAB BLOOD ORDERABLES Final Result Performing Organization Address [facility]/ZIP Co de Phone Number [facility] [address] [place] [address], [place] [phone] * Thyroid stimulating hormone (07/20/2024 6:06 AM EST) [facility] TSH 2.70 0.40 - 4.00 mcIU/mL LAB CHEMISTRY METHOD 07/20/2024 7:13 PM EST [facility] Blood Venous blood specimen / Unknown Venipuncture / Unknown 07/20/2024 6:06 AM EST 07/20/2024 7:02 AM EST Dilan SALINAS LAB BLOOD ORDERABLES Ju l Result Performing Organization Address [facility] Co de Phone Number [facility] [address] [place] [address], [place] [phone] * ECG 12 lead (07/19/2024 1:17 PM EST) Only the most recent of3 resultswithin the time period is included. [facility] Ventricular Rate ECG 115 BPM GEMUSE Atrial Rate 115 BPM GEMUSE P-R Interval 140 ms GEMUSE QRS Duration 82 ms GEMUSE Q-T Interval 290 ms GEMUSE QTc 401 ms GEMUSE P Wave [place] 67 degrees GEMUSE R [place] 77 degrees GEMUSE T [place] 64 degrees GEMUSE ECG Interpretation Sinus tachycardia [...] pneumoniae antibody IgM (07/19/2024 4:47 AM EST) [facility] Mycoplasma Antibody IgM 0.53 <=0.90 INDEX 07/22/2024 6:06 AM EST [facility] Comment: Negative: No antibody detected Test performed at [facility], [address] , [place], [place] ??[address] ? [phone] Michelle Stewart MD, PhD - [employer] Blood Venous blood specimen / Unknown Venipuncture / Unknown 07/19/2024 4:47 AM EST 07/19/2024 5:11 AM EST Pino Apple MD LAB BLOOD ORDERABLES Final Res ult [facility] [address] [place] [address] * ECG-Annotated (07/19/2024) Provider Onbase ECG ORDERABLES Final Result * Respiratory virus panel molecular study (07/18/2024 11:54 PM EST) [facility] Adenovirus Detection by PCR Not Detected Not Detected LAB MICROBIOLOGY METHOD 07/19/2024 12:59 AM EST [facility] Influenza A PCR Not Detected Not Detected LAB MICROBIOLOGY METHOD 07/19/2024 12:59 AM EST [facility] Influenza B PCR Not Detected Not Detected LAB MICROBIOLOGY METHOD 07/19/2024 12:59 AM [facility] Coronavirus 229E Not Detected Not Detected LAB MICROBIOLOGY METHOD 07/19/2024 12:59 AM [facility] Coronavirus HKU1 Not Detected Not Detected LAB MICROBIOLOGY METHOD 07/19/2024 12:59 AM [facility] Coronavirus OC43 Not Detected Not Detected LAB MICROBIOLOGY METHOD 07/19/2024 12:59 AM [facility] Coronavirus NL63 Not Detected Not Detected LAB MICROBIOLOGY METHOD 07/19/2024 12:59 AM [facility] Parainfluenza Virus 1 Not Detected Not Detected LAB MICROBIOLOGY METHOD 07/19/2024 12:59 AM [facility] Parainfluenza Virus 2 Not Detected Not Detected LAB MICROBIOLOGY METHOD 07/19/2024 12:59 AM [facility] Parainfluenza Virus 3 Not Detected Not Detected LAB MICROBIOLOGY METHOD 07/19/2024 12:59 AM [facility] Parainfluenza Virus 4 Not Detected Not Detected LAB MICROBIOLOGY METHOD 07/19/2024 12:59 AM [facility] RSV PCR Not Detected Not Detected LAB MICROBIOLOGY METHOD 07/19/2024 12:59 AM [facility] Human Metapneumovirus A and B Not Detected Not Detected LAB MICROBIOLOGY METHOD 07/19/2024 12:59 AM [facility] Rhinovirus/Entero virus Not Detected Not Detected LAB MICROBIOLOGY METHOD 07/19/2024 12:59 AM [facility] Bordetella pertussis Not Detected Not Detected LAB MICROBIOLOGY METHOD 07/19/2024 12:59 AM [facility] Bordetella parapertussis Not Detected Not Detected LAB MICROBIOLOGY METHOD 07/19/2024 12:59 AM [facility] Mycoplasma pneumo by PCR Not Detected Not Detected LAB MICROBIOLOGY METHOD 07/19/2024 12:59 AM [facility] Chlamydia pneumoniae Not Detected Not Detected LAB MICROBIOLOGY METHOD 07/19/2024 12:59 AM [facility] SARS COV-2 Not Detected Not Detected LAB MICROBIOLOGY METHOD 07/19/2024 12:59 AM [facility] Swab Both anterior nares / Unknown Non-blood Collection / Unknown 07/18/2024 11:54 PM EST 07/19/2024 12:04 AM [facility] - 07/19/2024 12:59 AM EST Testing was performed using the [employer] Respiratory Pathogen PCR Assay. All results must [...] ORD ERABLES Final Result Performing Organization Address [facility] Co de Phone Number [facility] [address] [place] [address], * Legionella antigen urine, EIA (07/18/2024 10:24 PM EST) [facility] Legionella Antigen, Ur Negative Negative 07/18/2024 11:13 PM EST [facility] Urine Urine specimen obtained by clean catch procedure / Unknown Non-blood Collection / Unknown 07/18/2024 10:24 PM EST 07/18/2024 10:50 PM EST Narrative [facility] - 07/18/2024 11:13 PM EST Negative for Legionella pneumophilia serogroup 1 antigen. This presumptive result suggests no current or recent infection due to L. pneumophilia serogroup 1. Culture is recommended if Legionella infection is till suspected, as other serogroups and species of Legionella are not detected by this test. Pino Apple MD LAB URINE ORDERABLES Final Res ult Performing Organization Address [facility] Co de Phone Number [facility] [address] [place] [address], * Troponin I high sensitivity (07/18/2024 9:36 PM EST) Only the most recent of2 resultswithin the time period is included. [facility] High Sensitivity Troponin I 15 <=79 ng/L LAB CHEMISTRY METHOD 07/18/2024 10:07 PM EST [facility] Blood Venous blood specimen / Unknown Venipuncture / Unknown 07/18/2024 9:36 PM EST 07/18/2024 9:42 PM EST Narrative [facility] [place] [facility]) [facility] - 07/18/2024 10:07 PM EST High levels of biotin in samples may falsely decrease hsTroponin values. ??Use caution when interpreting hsTroponin results in patients taking biotin who exhibit renal impairment (eGFR <60) or in patients taking more than 20 mg/day of biotin. us Karyna Garza DO LAB BLOOD ORDERABLES Ju l Result [facility] [address] [place] [address], [place] [phone] * XR Chest 1 View (07/18/2024 9:29 PM EST) Anatomical Region Laterality Modality Body Radiographic Pao ging 07/19/2024 7:23 AM EST Impressions 07/19/2024 7:24 AM EST Right midlung consolidation. -------- FINAL REPORT -------- Dictated By: Barry Arellano Dictated Date: 07/19/2024 07:23 ET Assigned Physician: Barry Arellano Reviewed and Electronically Signed By: Barry Arellano Signed Date: 07/19/2024 07:24 ET Workstation ID: [id number] Transcribed By: Self Edit Transcribed Date: 07/19/2024 [...] Signed Date: 07/19/2024 07:24 ET Workstation ID: [id number] Transcribed By: Self Edit Transcribed Date: 07/19/2024 07:23 ET us Karyna Heaton Michael Garza DO IMG XR PROCEDURES Final R esult * (ABNORMAL) B-type natriuretic peptide (07/18/2024 8:38 PM EST) BNP 320(H) <=100 pcg/mL LAB CHEMISTRY METHOD 07/18/2024 9:19 PM EST [facility] Blood Venous blood specimen / Unknown Venipuncture / Unknown 07/18/2024 8:38 PM EST 07/18/2024 8:43 PM EST Karyna Heaton Michael Garza DO LAB BLOOD ORDERABLES Ju l Result [facility] [address] [place] [address], from Last 3 Months Insurance MEDICARE Advance [...] currently active code status orders. Care Teams Angiographer Relationship Specialty Start Date End Date Marek Sullivan MD [address] [place] [address] Dr [address] [place] PCP - General Internal Medicine 07/18/24
== END 2024-09-29 11:36 | disposition home or self-care (01) ==
LOC: HO.HPS 10:55
PROVIDERS: Visit Provider Internal Medicine Pulmonary Disease
DX: J44.9 Chronic obstructive pulmonary disease, unspecified (principal); Z87.891 Personal history of nicotine dependence
CPT/HCPCS: 99204

== ENCOUNTER → 2024-09-29 10:55 | Outpatient (BNVA) | payer MEDICARE, SELFPAY | PROVIDERS: Visit Provider Internal Medicine Pulmonary Disease | DX: J44.9 Chronic obstructive pulmonary disease, unspecified (principal); Z87.891 Personal history of nicotine dependence | CPT/HCPCS: 99202 ==

== ENCOUNTER 2024-11-03 11:03 | Outpatient (REF) | payer MEDICARE, SELFPAY ==
--- NOTE | 2024-11-03 11:06 | PFT_ITS ---
Indication: COPD Spirometry [FVC 47%; FEV1 1.51 L; FVC 3.18 L. there is a trend response to bronchodilators noted.] Lung Volumes [Total lung capacity 86% predicted; residual volume 88% predicted] Diffusion Capacity [DLCO 53% predicted] Comparisons [none] Interpretation [There is an obstructive ventilatory defect consistent with moderate COPD. There is a trend response to bronchodilators noted. Lung volumes are within normal limits. The patient does have a moderate diffusion impairment secondary to likely changes and other parenchymal lung conditions. Clinical correlation.] MTDD
[2024-11-03 11:47] VITALS: PULSE 74; O2SAT 97
--- OUTSIDE RECORDS SUMMARY | 2024-11-03 13:32 | XMS_ITS | Patient Health Record ---
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 confirmed Problem Colon cancer screening (653218597) Colon cancer screening (V76.51) Active confirmed Plan Of Treatment Future Test Test Name Order Date COLONOSCOPY 05/08/2013 Next Appt Details Provider Name:Leon barriga Jr, 12/24/2024 01:35:00 PM, [address], [address], [place], [address], Insurance Providers Payer Name Payer Address Payer Phone Subscriber Number Group Number Insured Name Patient Relationship to Insured Coverage Start Date Coverage End Date MEDICARE OF [employer] [address] [place] [address] [id number] MAAME CAMPBELL Self - patient is the insured Medical (General) History Medical History History ICD Code nephrolithiasis Denies [place],DM,CVA,Lung disease,renal dise ase Surgical History Surgery Date(Month/Year) jaw surgery lithotripsy
--- OUTSIDE RECORDS SUMMARY | 2024-11-03 13:32 | XMS_ITS | Clinical Summary ---
Author Organization [facility] Address [address] [place] [address] Phone Care Team Providers Care Information Manager Name Role Phone Marek Sullivan MD Primary [...] Resolved Date SOB (shortness of breath) 07/18/2024 Social History Tobacco Use Types Packs/Day Years [...] (98 lb) 07/20/2024 3:28 PM EST per [facility] record Height 162.6 cm (5' 4 ) 07/19/2024 8:52 PM EST Body Mass Index 16.82 07/19/2024 8:52 PM EST Plan of Treatment Health Maintenance Due Date Last Done Comments DTaP,Tdap,and Td Vaccines (1 - Tdap) 1975 Pneumococcal Vaccine: 50+ Years (1 of 2 - PCV) 1975 Zoster Vaccines (1 of 2) 2006 COVID-19 Vaccine (5 - season) 2024 06/08/2022, 06/09/2021, 10/20/2020, Additional history exists Abdominal Aortic Aneurysm (AAA) Screen 07/18/2024 Cholesterol Screening (Lipid Panel) 07/18/2024 Colorectal Cancer Screening: Colonoscopy 07/18/2024 Depression Screening 07/18/2024 Hepatitis C Screening 07/18/2024 Medicare Annual Wellness Visit 07/18/2024 Social Influencers of Health Screening 07/18/2024 Influenza Vaccine (Season Ended) 2025 06/08/2022, 06/09/2021, 06/11/2017 Falls Risk Assessment 07/21/2025 07/21/2024 RSV Immunization Adult Patients (1 - 1-dose 75+ series) 2031 HIB Vaccines Aged Out No longer eligi ble based on patient's age to complete this topic HPV Vaccines Aged Out No longer eligi ble based on patient's age to complete this topic Hepatitis A Vaccines Aged Out No long er eligible [...] age to complete this topic Meningococcal B Vaccine Aged Out No l onger eligible based on patient's age to complete this topic RSV Immunization Patients Under 20 months Aged Out No longer eligible based on patient's age to complete this topic Varicella Vaccines Aged Out No longer eligible based on patient's age to complete this topic Insurance MEDICARE Advance Directives * Full Code [...] currently active code status orders. Care Teams Information Manager Relationship Specialty Start Date End Date Marek Sullivan MD [address] [place] [address] Dr Mohamud Peters [place] PCP - General Internal Medicine 07/18/24
== END 2024-11-03 11:04 | disposition home or self-care (01) ==
LOC: HO.RESP 11:03
PROVIDERS: Visit Provider Internal Medicine Pulmonary Disease
DX: J44.9 Chronic obstructive pulmonary disease, unspecified (principal)
CPT/HCPCS: 94010; 94640; 94727; 94729

== ENCOUNTER → 2024-11-03 11:06 | Outpatient (BNV) | payer MEDICARE, SELFPAY | PROVIDERS: Visit Provider Hospitalist | DX: J44.9 Chronic obstructive pulmonary disease, unspecified (principal) | CPT/HCPCS: 94060; 94727; 94729 ==

== ENCOUNTER 2024-11-19 15:16 | Outpatient (REF) | payer MEDICARE, SELFPAY ==
--- NOTE | ~2024-11-19 | CT_ITS ---
CLINICAL HISTORY: Z87.891 - Personal history of nicotine dependence CT lung cancer screening (LDCT) Comparison: None Technique: Axial CT images of the chest using low-dose technique. Referring provider counseled the patient on shared decision-making for LDCT screening. Additional counseling was provided on smoking cessation. Effective radiation dose total: DLP 44.8 mGycm, CTDIvol 1.3 mGy. Findings: Smoking-related lung changes. Scattered atelectasis/scarring predominantly in the right upper and medial aspect of the left lower lobes. A few tiny right middle and left upper lobe calcified granulomas. 2 mm lingular noncalcified nodule on series 3, image 82. No other nodule identified. No other lung nodule A few tiny calcified splenic granulomas. Coronary artery calcifications: Mild Nonspecific 12 mm right hepatic lobe hypodensity could be further evaluated with ultrasound. Other: None Impression: LungRADS 2 - Benign Appearance: Continue annual screening with low dose Chest CT in 12 months. ##L2# Nonspecific 12 mm right hepatic lobe hypodense lesion could be further evaluated with ultrasound. Category 1: Normal; continue annual screening Category 2: Benign appearance or behavior, continue annual screening Category 3: Probably benign, [address] recommended Category 4A: Suspicious, [address] recommended; may consider PET/CT Category 4B: Suspicious, Additional diagnostics and/or tissue sampling recommended Category 4X: Suspicious, Additional diagnostics and/or tissue sampling recommended Category 0: Recalls (incomplete screen due to Incomplete coverage, Noise, Respiratory motion, Expiration, Obscured by acute abnormality) This document has been electronically signed by: Nancy San MD on 11/21/2024 05:46:40
--- OUTSIDE RECORDS SUMMARY | 2024-11-19 17:05 | XMS_ITS | Clinical Summary ---
Author Organization [facility] Address [address] [place] [address] Phone Care Team Providers Care Forklift Technician Name Role Phone Marek Sullivan MD Primary [...] (98 lb) 07/20/2024 3:28 PM EST per [facility] record Height 162.6 cm (5' 4 [...] currently active code status orders. Care Teams Forklift Technician Relationship Specialty Start Date End Date Marek Sullivan MD [address] [place] [address] Dr Mohamud Peters [place] PCP - General Internal Medicine 07/18/24
== END 2024-11-19 15:17 | disposition home or self-care (01) ==
LOC: HO.CT 15:16
PROVIDERS: Visit Provider Internal Medicine Pulmonary Disease
DX: Z12.2 Encounter for screening for malignant neoplasm of respiratory organs (principal); Z87.891 Personal history of nicotine dependence
CPT/HCPCS: 71271

== ENCOUNTER → 2024-11-19 15:18 | Outpatient (BNV) | payer MEDICARE, SELFPAY | PROVIDERS: Visit Provider Radiology Diagnostic Radiology | DX: Z87.891 Personal history of nicotine dependence (principal) | CPT/HCPCS: 71271 ==

== ENCOUNTER 2024-11-30 09:30 | Outpatient (AMB) | payer MEDICARE, SELFPAY ==
--- NOTE | 2024-11-30 09:43 | MHC.PC.OV ---
Vital Signs 11/30/24 09:44 Height 5 ft 2.6 in Weight 112 lb 6 oz BMI 20.2 BP 130/76 Blood Pressure Location Lt brachial Position Sitting Pulse 63 Pulse Source Pulse Oximeter Temp 97.1 F Temp Source Temporal Artery Scan Pulse Oximetry (%) 97 Oxygen Delivery Method Room Air Intake Visit Reasons: high cholesterol/vit d deficiency Intake Note: Patient is here to follow up on High cholesterol, vit D deficiency. 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 [place]: Present Accompanied by: Spouse Allergies Sulfa (Sulfonamide Antibiotics) [SULFA (SULFONAMIDE ANTIBIOTICS)] Allergy (Intermediate, Verified 11/30/24 09:51) RASH codeine [CODEINE] Adverse Reaction (Mild, Verified 11/30/24 09:51) Vomiting Medication List - Last Reconciled 11/30/24 by EL Ramos albuterol sulfate 90 mcg/actuation 2 inhalations inhalation Q4-6H PRN cholecalciferol (vitamin D3) 25 mcg PO DAILY Tobacco use date assessed: 11/30/24 Fall risk assessment: No Falls in past year Last assessed Fall Risk: 11/30/24 Dental Screening Dental Screen Date: 08/18/24 HPI high cholesterol/vit d deficiency HPI Details The patient is a 69-year-old male is presenting for follow up appointment on his chronic conditions The patient did not complete his ordered blood work, reports that he would get it done tomorrow His cholesterol was elevated on previous visit and his vitamin-D Patient was encouraged to make dietary changes and to increase physical activity as tolerated The patient was ordered cholecalciferol 25 mcg but has not picked up this prescription as yet Reports that he has been taking and multivitamin and he will be getting plenty of sun pretty soon Reports that previously when he was in the hospital his potassium and magnesium were low Reports drinking electrolytes to supplement His last potassium was 3.9,will add a magnesium level to his ordered labs no chest pain, sob, heart palpitation no abdominal pain/change in bowel habits no urinary symptoms PFSH Surgical History History of hernia surgery Social History Housing: House Alcohol intake: never Patient Tobacco Use Status: Former Tobacco user Tobacco use type: Cigarette Years Smoked: started age 19, 1PPD, quit June 2024 e-Cigarette/Vaping Use: Never Used Second Hand Smoke Exposure: Yes service: No Current occupational status: retired Cognitive needs: No Hearing needs: No Vision needs: Yes (Glasses) Questionnaire Thrive Questionnaire Date Thrive assessed: 08/16/24 I am a: Patient What is your living situation today?: I have a steady place to live Within the past 12 months, did the food you bought not last and you didn't have the money to get more?: Often true Within the past 12 months, did you worry whether your food would run out before you got money to buy more?: Often true Do you have trouble paying for medicines?: No Do you have trouble getting transportation to medical appointments?: No Do you have trouble paying your heating and electricity bill?: No Do you have trouble taking care of your child, family member or friend?: No Do you have trouble with day-to-day activities such as bathing, preparing meals, shopping, managing finances, etc.?: No Are you currently unemployed and looking for a job?: No Are you interested in more education?: No Please select the resources that you would like help with: None Currently or been in a relationship where the following occur: I choose not to answer THRIVE Score: 2 AUDIT C Alcohol Use Questionnaire (AUDIT-C) 2. How many drinks containing alcohol do you have on a typical day when you are drinking?: 1 or 2 Total Score: 0 MATEO-7 AMB Questionnaire MATEO-7 Date MATEO - 7 assessed: 09/01/24 Source: Developed by Drs. Floyd Wan, Marichuy Dee, Bhavin Roca and colleagues, with an educational irene from [employer]. Review of Systems Const Denies headache(s) Eyes Denies loss of vision ENT Denies vertigo, Denies dizziness, Denies headache(s) and Denies sore throat Card Denies chest pain, Denies leg edema and Denies lightheadedness Resp Denies cough, Denies hemoptysis and Denies wheezing GI Denies abdominal pain, Denies melena, Denies constipation, Denies diarrhea and Denies vomiting Neuro Denies vertigo, Denies dizziness, Denies headache(s) and Denies loss of vision Kervin/Lymph Denies easy bleeding and Denies easy bruising Aller/Immun Denies wheezing Physical exam (Primary Care) Vital Signs: Last Vital Signs Temp 97.1 F 11/30/24 09:44 Pulse 63 11/30/24 09:44 BP 130/76 11/30/24 09:44 Pulse Ox 97 11/30/24 09:44 Oxygen Delivery Method Room Air 11/30/24 09:44 BMI result Body Mass Index 20.2 Tobacco/Smoking Status: Tobacco use Status Tobacco use date assessed 11/30/24 11/30/24 09:50 Patient Tobacco Use Status Former Tobacco user 11/30/24 09:50 Tobacco use type Cigarette 11/30/24 09:50 e-Cigarette/Vaping Use Never Used 11/30/24 09:50 Thrive Assessment: Date of Thrive Assessment Date Thrive assessed 08/16/24 11/30/24 09:50 Currently or been in a relationship where the following occur: I choose not to answer Const General: healthy appearing, no acute distress, alert and awake Nutritional Appearance: well nourished Orientation/consciousness: oriented to person, oriented to place and oriented to time HENMT Ears: TM's normal bilaterally General nose exam: Normal nasal mucous membranes and turbinates present Eyes Conjunctivae: conjunctivae normal Sclerae: sclerae normal Pupils: Equal, round and reactive pupils present Neck Neck: Yes no lymphadenopathy and Yes no JVD Thyroid: Thyroid normal Carotids: no bruits Resp Effort & Inspection: normal respiratory effort and not tachypneic Auscultation: no crackles, no rales, no rhonchi and no wheezes Cardio Rate: regular rate Rhythm: regular rhythm Heart sounds: no murmurs and normal S1 and S2 Bruits: other (no edema, capillary refill less than 3 secs bilaterally) GI Palpation (GI): Soft to palpation and nontender Auscultation: normal bowel sounds Neuro General: oriented to person, oriented to place and oriented to time Cranial nerves: Yes Equal, round and reactive pupils present Gait exam (Neuro): Normal gait present Extrem Right upper extremity: full ROM Left upper extremity: full ROM Right lower extremity: full ROM; no edema Left lower extremity: full ROM; no edema Coding Level of Care Code Est Pt Level 3 (83951) Diagnoses Pure hypercholesterolemia E78.00 Vitamin D deficiency E55.9 Low magnesium level R79.0 Hypokalemia E87.6 Chronic obstructive pulmonary disease, unspecified COPD type J44.9 COPD type: unspecified COPD Time Spent (min) 31 Assessment & Plan Assessment & Plan (1) Pure hypercholesterolemia: Code(s): E78.00 - Pure hypercholesterolemia, unspecified Category: Medical (2) Vitamin D deficiency: Code(s): E55.9 - Vitamin D deficiency, unspecified Category: Medical Plan: Encouraged starting cholecalciferol 25 mcg daily (3) Low magnesium level: Code(s): R79.0 - Abnormal level of blood mineral Category: Medical Plan: Magnesium level at 2 order labs (4) Hypokalemia: Code(s): E87.6 - Hypokalemia Category: Medical Plan: Stable, last potassium was 3.9, encouraged the patient to get ordered labs completed to further evaluate (5) COPD (chronic obstructive pulmonary disease): Code(s): J44.9 - Chronic obstructive pulmonary disease, unspecified Category: Medical Qualifiers: COPD type: unspecified COPD Qualified Code(s): J44.9 - Chronic obstructive pulmonary disease, unspecified Plan: Stable, reports not needing his inhaler Plan Patient to follow up in 3 months Orders: Orders Magnesium Today R79.0 - Abnormal level of blood mineral
[2024-11-30 09:44] VITALS: BP 130/76; PULSE 63; TEMP 36.2; O2SAT 97; BMI 20.2
--- OUTSIDE RECORDS SUMMARY | 2024-11-30 09:45 | XMS_ITS | Clinical Summary ---
Author Organization [facility] Address [address] [place] [address] Phone Care Team Providers Care Gold Leaf Laborer Name Role Phone Marek Sullivan MD Primary Care Provider [phone] Allergies Active Allergy Reactions Criticality Noted Date [...] (98 lb) 07/20/2024 3:28 PM EST per [facility] record Height 162.6 cm (5' 4 ) [...] currently active code status orders. Care Teams Gold Leaf Laborer Relationship Specialty Start Date End Date Marek Sullivan MD [address] [place] [address] Dr Mohamud Peters MA PCP - General Internal Medicine 07/18/24
--- OUTSIDE RECORDS SUMMARY | 2024-11-30 09:45 | XMS_ITS | Patient Health Record ---
Author Organization [facility] Address [address] [place] [address] Care Team Providers Care Supervisor Public Message Service Name Role Phone Jalen Padron MD Primary [...] W/U Status Risk Notes Problem Pruritus ani ([id number]) Pruritus ani (698.0) Active confirmed Problem Colon cancer screening (V76.51) Active confirmed Plan Of Treatment Future Test Test Name Order Date COLONOSCOPY 05/08/2013 Next Appt Details Provider Name:Leon barriga Jr, 12/24/2024 01:35:00 PM, [address], [address], [place], [address], Insurance Providers Payer Name Payer Address Payer Phone Subscriber Number Group Number Insured Name Patient Relationship to Insured Coverage Start Date Coverage End Date MEDICARE OF [employer] [address] [place] [address] [id number] MAAME CAMPBELL Self - patient is the insured Medical (General) History Medical History History ICD Code nephrolithiasis Denies MO,DM,CVA,Lung disease,renal dise ase Surgical History Surgery Date(Month/Year) jaw surgery lithotripsy
== END 2024-11-30 10:09 | disposition home or self-care (01) ==
LOC: HO.HMCH 09:30
DX: E78.00 Pure hypercholesterolemia, unspecified (principal); J44.9 Chronic obstructive pulmonary disease, unspecified; E55.9 Vitamin D deficiency, unspecified; R79.0 Abnormal level of blood mineral; E87.6 Hypokalemia

== ENCOUNTER → 2024-11-30 09:30 | Outpatient (BNVA) | payer MEDICARE, SELFPAY | DX: E78.00 Pure hypercholesterolemia, unspecified (principal); E55.9 Vitamin D deficiency, unspecified; R79.0 Abnormal level of blood mineral; E87.6 Hypokalemia; J44.9 Chronic obstructive pulmonary disease, unspecified | CPT/HCPCS: 99212 ==

== ENCOUNTER 2024-12-28 08:27 | Outpatient (AMB) | payer MEDICARE, SELFPAY ==
--- NOTE | 2024-12-28 08:30 | A.OFFVIS_ITS ---
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/Cardiomegaly Intake Note: New patient cardiomegaly with ekg feeling good Curing Oven Tender Required: No Visual Merchandising Director: Visual Merchandising Director Present Accompanied by: Spouse Allergies Sulfa (Sulfonamide Antibiotics) [SULFA (SULFONAMIDE ANTIBIOTICS)] Allergy (Intermediate, Verified 11/30/24 09:51) RASH codeine [CODEINE] Adverse Reaction (Mild, Verified 11/30/24 09:51) Vomiting Medication List - Last Reconciled 12/28/24 by Jairo Kan MD albuterol sulfate 90 mcg/actuation 2 inhalations inhalation Q4-6H PRN magnesium 200 mg PO DAILY PRN multivitamin 1 tab PO DAILY potassium chloride ER 10 mEq PO DAILY PRN HPI Comments Details: Jai is here for cardiac consultation. He states that last June, he was admitted to [facility] with pneumonia. Since then, he has had some electrolyte issues including low potassium/magnesium and has been taking replacement for the same. From the cardiac standpoint, he does not have any known issues like coronary disease or myocardial infarction or cardiomyopathy. An EKG previously had shown some PVCs but not clear if it is related to the electrolyte issues above. Also, there is a question of cardiomegaly but not clear how that was identified. Patient himself is not having any symptoms like angina or shortness of breath or in fact anything cardiac related. [facility] Surgical History History of hernia surgery Social History Housing: House Alcohol intake: never Patient Tobacco Use Status: Former Tobacco user Tobacco use type: Cigarette Years Smoked: started age 19, 1PPD, quit June 2024 e-Cigarette/Vaping Use: Never Used Second Hand Smoke Exposure: Yes service: No Current occupational status: retired Cognitive needs: No Hearing needs: No Vision needs: Yes (Glasses) Review of Systems Const Denies chills, Denies daytime sleepiness, Denies fatigue, Denies fever(s), Denies frequent falls, Denies poor appetite, Denies snoring, Denies stops breathing during sleep, Denies weakness, Denies weight gain and Denies weight loss Eyes Denies loss of vision ENT Denies dizziness and Denies hearing loss Card Denies chest pain, Denies claudication, Denies leg edema, Denies lightheadedness, Denies palpitations, Denies dyspnea, Denies dyspnea on exertion and Denies orthopnea Resp Denies cough, Denies excessive phlegm production, Denies dyspnea, Denies dyspnea on exertion, Denies snoring and Denies wheezing GI Denies abdominal pain, Denies hematochezia, Denies change in bowel habits, Denies nausea and Denies vomiting Denies dysuria and Denies urinary frequency Musc Denies arthralgias, Denies muscle weakness, Denies numbness and Denies other (frequent falls) Skin/Breast Denies nail changes and Denies rash Neuro Denies Abnormal speech present, Denies dizziness, Denies frequent falls, Denies loss of vision, Denies memory loss, Denies numbness and Denies weakness Psych Denies depression and Denies memory loss Endo Denies fatigue and Denies palpitations Kervin/Lymph Reports easy bruising and Reports other (anemia) Aller/Immun Denies wheezing Physical Exam Vital Signs: Last Vital Signs Pulse 61 12/28/24 08:31 BP 120/70 12/28/24 08:31 BMI result Body Mass Index 19.8 Const General: comfortable and no acute distress Orientation/consciousness: patient oriented x3 HEENT Other: Unremarkable Head: Yes normal to inspection Neck Neck: Yes normal visual inspection Chest Chest palpation & inspection: normal inspection of the chest Resp Auscultation: clear to auscultation bilaterally Cardio Palpation: normal PMI Heart sounds: S1 normal heart sound present, S2 normal heart sound present, no gallops, no murmurs and no rubs GI Palpation (GI): Soft to palpation Back/Spine/Pelvis Other: unremarkable Skin General skin exam: no rashes or lesions noted Neuro General: patient oriented x3 Speech: No Abnormal speech present Extrem General: Yes normal to inspection Psych Mental Status: mental status grossly normal Office Procedures EKG Details: EKG with underlying sinus rhythm at 61/Min; cannot exclude old anterior infarct but could be very well from his body habitus/COPD; [place]. [id number], Complete Assessment & Plan Assessment & Plan (1) PVC (premature ventricular contraction): Code(s): I49.3 - Ventricular premature depolarization Category: Medical Plan: An EKG from July had shown sinus rhythm with PVCs. However, today's EKG does not show any. He has got no clinical symptoms from this. We will plan on Holter +ETT. (2) Cardiomegaly: Code(s): I51.7 - Cardiomegaly Category: Medical Plan: Per PCP note, there was question of cardiomegaly at [facility] but not clear this was identified. Needs an echocardiogram for further evaluation. Plan Discussion Notes During our discussion, I reviewed the nature of the arrhythmia and the significance of the extra beats noted in prior EKGs. I explained the rationale for conducting a cardiac ultrasound and Holter monitor to further investigate and monitor the heart's function and rhythm. The risks and benefits of these diagnostic evaluations were explained in the context of providing comprehensive cardiac assessment. We discussed the plan to perform a treadmill stress test to understand exercise tolerance more fully. I have highlighted the importance of potassium and magnesium in maintaining cardiac rhythm. The patient was informed that the results would guide further management and any potential adjustments in his care plan, including the importance of close follow-up to re-evaluate symptoms and test results. Patient was informed and verbally consented to the use of an ambient scribe for clinic note documentation during this visit. Orders: Orders CA echo transthoracic complete Today I51.7 - Cardiomegaly ECG 3 day holter monitor Today I49.3 - Ventricular premature depolarization CA stress test Today R07.2 - Precordial pain Patient Instructions: - You will get tests to check your heart activity, like a heart ultrasound and wearing a heart monitor at home. - Keep taking your potassium and magnesium supplements for your heart health. - You'll have a stress test to see how your heart manages exercise. - We?ll set another appointment to discuss test results and make a plan. - If you feel new symptoms like chest pain, let us know right away. Coding Level of Care Code New Pt Level 4 (71467) Complex EM visit Add On G2211 Diagnoses PVC (premature ventricular contraction) I49.3 Cardiomegaly I51.7 CPT Codes EKG - CPT: 12868-[id number], Complete ([id number])
[2024-12-28 08:31] VITALS: BP 120/70; PULSE 61; BMI 19.8
--- OUTSIDE RECORDS SUMMARY | 2024-12-28 08:35 | XMS_ITS | Patient Health Record ---
Author Organization [facility] Address [address] [place] [address] Care Team Providers Care Mva Operator Name Role Phone Jalen Padron MD Primary Care Provider Leon Trotter Jr Allergies Allergen (clinical drug ingredient) Drug/Non Drug [...] W/U Status Risk Notes Problem Pruritus ani (52326103) Pruritus ani (698.0) Active confirmed Problem Colon cancer screening (V76.51) Active confirmed Encounters Encounter Location Date Provider Diagnosis [facility] [address] [facility] [address] [place] [phone] 12/24/2024 Leon Mckeon Jr Plan Of Treatment Future Test Test Name Order Date COLONOSCOPY 05/08/2013 Insurance Providers Payer Name Payer Address Payer Phone Subscriber Number Group Number Insured Name Patient Relationship to Insured Coverage Start Date Coverage End Date MEDICARE OF [employer] [address] [place] [address] [id number] MAAME CAMPBELL Self - patient is the insured Medical (General) History Medical History History ICD Code nephrolithiasis Denies [place],DM,CVA,Lung disease,renal dise ase Surgical History Surgery Date(Month/Year) jaw surgery lithotripsy
== END 2024-12-28 09:00 | disposition home or self-care (01) ==
LOC: HO.HCS 08:28
PROVIDERS: Visit Provider Internal Medicine
DX: I49.3 Ventricular premature depolarization (principal); I51.7 Cardiomegaly
CPT/HCPCS: 93010; 99204; G2211

== ENCOUNTER → 2024-12-28 08:27 | Outpatient (BNVA) | payer MEDICARE, SELFPAY | PROVIDERS: Visit Provider Internal Medicine | DX: I49.3 Ventricular premature depolarization (principal); I51.7 Cardiomegaly; R94.31 Abnormal electrocardiogram [ECG] [EKG] | CPT/HCPCS: 93005; 99202 ==

== ENCOUNTER 2025-01-01 14:28 | Outpatient (AMB) | payer MEDICARE, SELFPAY ==
[2025-01-01 14:30] VITALS: BP 128/78; PULSE 70; O2SAT 97; BMI 19.9
--- NOTE | 2025-01-01 14:30 | A.OFFVIS_ITS ---
Vital Signs 01/01/25 14:30 Height 5 ft 2.6 in Weight 111 lb BMI 19.9 BP 128/78 Blood Pressure Location Lt brachial Position Sitting Pulse 70 Pulse Source Pulse Oximeter Pulse Oximetry (%) 97 Oxygen Delivery Method Room Air Intake Visit Reasons: COPD/PFT Follow Up Allergies Sulfa (Sulfonamide Antibiotics) [SULFA (SULFONAMIDE ANTIBIOTICS)] Allergy (Intermediate, Verified 01/01/25 14:34) RASH codeine [CODEINE] Adverse Reaction (Mild, Verified 01/01/25 14:34) Vomiting HPI HPI COPD/PFT Follow Up: Details: 69-year-old gentleman, recent 50 pack-year smoker, with recent history of pneumonia of 2023, now recovered to baseline referred for pulmonary evaluation. Patient denies dyspnea on exertion, cough, or sputum production. He denies family history of lung diseases. 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 After the last office visit patient had normal lung cancer screening CT chest and pulmonary function test that shows moderate COPD. He denies any exacerbations or significant symptoms. [facility] Surgical History History of hernia surgery Social History Housing: House Alcohol intake: never Patient Tobacco Use Status: Former Tobacco user Tobacco use type: Cigarette Years Smoked: started age 19, 1PPD, quit June 2024 e-Cigarette/Vaping Use: Never Used Second Hand Smoke Exposure: Yes service: No Current occupational status: retired Cognitive needs: No Hearing needs: No Vision needs: Yes (Glasses) Review of Systems Const Denies daytime sleepiness, Denies excessive sweating, Denies fatigue, Denies fever(s), Denies lethargy, Denies malaise, Denies night sweats, Denies snoring and Denies weight loss Eyes Denies blurry vision and Denies itchy eyes ENT Denies nasal congestion, Denies post nasal drip, Denies sinus pain, Denies sinus pressure and Denies other ( Thrush) Card Denies chest pain, Denies pedal edema, Denies dyspnea, Denies orthopnea and Den ies paroxysmal nocturnal dyspnea Resp Denies cough, Denies hemoptysis, Denies excessive phlegm production, Denies dyspnea, Denies snoring and Denies wheezing GI Denies abdominal pain and Denies heartburn Musc Denies myalgias, Denies arthralgias and Denies joint swelling Skin/Breast Denies rash Neuro Denies memory loss and Denies seizure-like activity Psych Denies abnormal sleep pattern, Denies anxiety and Denies memory loss Endo Denies excessive sweating, Denies fatigue and Denies heat intolerance Kervin/Lymph Denies easy bruising Aller/Immun Denies itchy eyes, Denies seasonal rhinorrhea and Denies wheezing Physical Exam Vital Signs: Last Vital Signs Pulse 70 01/01/25 14:30 BP 128/78 01/01/25 14:30 Pulse Ox 97 01/01/25 14:30 Oxygen Delivery Method Room Air 01/01/25 14:30 BMI result Body Mass Index 19.9 Const General: no acute distress and alert Nutritional Appearance: not obese Orientation/consciousness: Other orientation findings ( oriented) HEENT Head: Yes atraumatic Eyes General: appearance normal, both eyes and all related structures Sclerae: sclerae normal EOM: EOMs intact bilaterally Neck Neck: Yes supple Lymphatic: no lymphadenopathy noted Resp Effort & Inspection: normal respiratory effort and no use of accessory muscles Auscultation: clear to auscultation bilaterally Cardio Rate: regular rate Rhythm: regular rhythm Heart sounds: no gallops, no murmurs and no rubs Skin General skin exam: other ( warm) Extrem General: No clubbing, No cyanosis and No edema Assessment & Plan Assessment & Plan (1) COPD (chronic obstructive pulmonary disease): Code(s): J44.9 - Chronic obstructive pulmonary disease, unspecified Category: Medical Qualifiers: COPD type: unspecified COPD Qualified Code(s): J44.9 - Chronic obstructive pulmonary disease, unspecified Plan: Results of pulmonary function test reviewed, underlying moderate COPD, now well controlled on as needed albuterol MDI. Continue current regimen. (2) Personal history of nicotine dependence: Code(s): Z87.891 - Personal history of nicotine dependence Category: Medical Plan: Results of lung cancer screening CT chest reviewed, no worrisome nodules, continue with yearly screening, next in November of 2025, ordered. Orders: Orders CT lung screening 11/29/25 Z87.891 - Personal history of nicotine dependence Coding Level of Care Code Est Pt Level 4 (49299) Diagnoses Chronic obstructive pulmonary disease, unspecified COPD type J44.9 COPD type: unspecified COPD Personal history of nicotine dependence Z87.891
--- OUTSIDE RECORDS SUMMARY | 2025-01-01 14:31 | XMS_ITS | Patient Health Record ---
Author Organization [facility] Address [address] [facility] [address] [place] [address] Care Team Providers Care Produce Shipper Name Role Phone Jalen Padron MD Primary Care Provider Ruddy Mckeon Jr, Leon Unavailable [phone] Allergies Allergen (clinical drug ingredient) Drug/Non Drug [...] W/U Status Risk Notes Problem Pruritus ani (96206384) Pruritus ani (698.0) Active confirmed Problem Colon cancer screening (927732285) Colon cancer screening (V76.51) Active confirmed Encounters Encounter Location Date Provider Diagnosis [facility] [address] [place] [address] 12/24/2024 Leon Mckeon Jr Plan Of Treatment Future Test Test Name Order Date COLONOSCOPY 05/08/2013 Next Appt Details Provider Name:Leon barriga Jr, 04/21/2025 10:00:00 AM, [address] [place] [address], [address], [place], [address], Insurance Providers Payer Name Payer Address Payer Phone Subscriber Number Group Number Insured Name Patient Relationship to Insured Coverage Start Date Coverage End Date MEDICARE OF [place] [address] [place] [id number] MAAME CAMPBELL Self - patient is the insured Medical (General) History Medical History History ICD Code nephrolithiasis Denies [place],DM,CVA,Lung disease,renal dise ase Surgical History Surgery Date(Month/Year) jaw surgery lithotripsy
== END 2025-01-01 14:47 | disposition home or self-care (01) ==
LOC: HO.HPS 14:28
PROVIDERS: Visit Provider Internal Medicine Pulmonary Disease
DX: J44.9 Chronic obstructive pulmonary disease, unspecified (principal); Z87.891 Personal history of nicotine dependence
CPT/HCPCS: 99214

== ENCOUNTER → 2025-01-01 14:28 | Outpatient (BNVA) | payer MEDICARE, SELFPAY | PROVIDERS: Visit Provider Internal Medicine Pulmonary Disease | DX: J44.9 Chronic obstructive pulmonary disease, unspecified (principal); Z87.891 Personal history of nicotine dependence | CPT/HCPCS: 99212 ==

== ENCOUNTER → 2025-02-23 07:55 | Outpatient (REF) | payer MEDICARE, SELFPAY ==
--- OUTSIDE RECORDS SUMMARY | 2025-02-23 07:58 | XMS_ITS | Patient Health Record ---
Author Organization [facility] Address [address] [facility] [address] [place] [address] Care Team Providers Care Social Media Content Specialist Name Role Phone Jalen Padron MD Primary Care Provider Ruddy Mckeon Jr, Leon Unavailable Allergies Allergen (clinical drug ingredient) Drug/Non Drug [...] W/U Status Risk Notes Problem Pruritus ani (12124909) Pruritus ani (698.0) Active confirmed Problem Colon cancer screening (V76.51) Active confirmed Encounters Encounter Location Date Provider Diagnosis [facility] [address] [place] [phone] 12/24/2024 Leon Mckeon Jr Plan Of Treatment Future Test Test Name Order Date COLONOSCOPY 05/08/2013 Next Appt Details Provider Name:Leon barriga Jr, 04/21/2025 10:00:00 AM, [address] [place] [address], [address] [facility], [place], [address], Insurance Providers Payer Name Payer Address Payer Phone Subscriber Number Group Number Insured Name Patient Relationship to Insured Coverage Start Date Coverage End Date MEDICARE OF [place] [address] [place] [address] [id number] MAAME CAMPBELL Self - patient is the insured Medical (General) History Medical History History ICD Code nephrolithiasis Denies [place],DM,CVA,Lung disease,renal dise ase Surgical History Surgery Date(Month/Year) jaw surgery lithotripsy
--- OUTSIDE RECORDS SUMMARY | 2025-02-23 07:58 | XMS_ITS | Clinical Summary ---
Author Organization [facility] Address [address] [place] [address] Phone Care Team Providers Care Physician'S Assistant Name Role Phone Marek Sullivan MD Primary [...] 96 07/21/2024 3:09 PM EST Temperature 37.2 C (98.9 F) 07/21/2024 3:09 PM EST Respiratory Rate 17 07/21/2024 3:09 [...] of 2) 2006 COVID-19 Vaccine (5 - 2023- season) 2024 06/08/2022, 06/09/2021, 10/20/2020, Additional history exists Abdominal Aortic Aneurysm (AAA) Screen 07/18/2024 Cholesterol Screening (Lipid Panel) 07/18/2024 Colorectal Cancer Screening: Colonoscopy 07/18/2024 Hepatitis C Screening 07/18/2024 Medicare Annual Wellness Visit 07/18/2024 Social Influencers of Health Screening 07/18/2024 Depression Screening 07/22/2024 Influenza Vaccine (#1) 2025 , 06/09/2021, 06/11/2017 Falls Risk Assessment 07/21/2025 07/21/2024 [...] currently active code status orders. Care Teams Physician'S Assistant Relationship Specialty Start Date End Date Marek Sullivan MD [address] [place] [address] Dr Mohamud Peters [place] PCP - General Internal Medicine 07/18/24
--- NOTE | 2025-02-23 08:01 | CA_ITS ---
Transthoracic Echocardiogram Patient (Last, First, Middle): Jai Martinez S Gender: Male Date of : 1955 Age: 69 Procedure Date: 02/23/2025 Procedure Type: Transthoracic Echocardiogram Location: OP Height: 157.48 cm Weight: 50.35 kg BSA: 1.49 m2 Heart Rate: bpm BP: 127 / 78 mmHg Scorer Helper: ARGELIA Referring MD: Jairo Kan MD Symptoms: I51.7 - Cardiomegaly Study Quality: Adequate ECG Rhythm: Sinus Conclusions: - The left ventricular systolic function is normal. The calculated ejection fraction is 60% by biplane method. - No obvious valvular pathology seen on this study. Findings Left Ventricle Normal left ventricular cavity size. There is normal left ventricular wall thickness. The left ventricular systolic function is normal. The calculated ejection fraction is 60% by biplane method. There is no evidence of regional wall motion abnormalities. Evidence suggests grade I (mild) diastolic dysfunction. Right Ventricle Normal right ventricular cavity size and systolic function. Atria Both atria are normal in size. Aortic Valve There is a normal trileaflet aortic valve. There is no aortic valve stenosis. There is no aortic valve regurgitation. Mitral Valve There is mild anterior mitral leaflet thickening. There is no mitral valve regurgitation. There is no mitral valve stenosis. Pulmonic Valve The pulmonic valve is likely normal. Tricuspid Valve There is trace tricuspid valve regurgitation. There is no evidence of pulmonary hypertension. Great Vessels The asc aorta is normal in size. Venous The inferior vena cava is normal in size and collapses greater than 50% with inspiration. Pericardium/Pleural There is no evidence of pericardial effusion. Prior Study Comparison No prior study available for comparison. Recommendations, Care & Conclusions No obvious valvular pathology seen on this study. Measurements 2D Linear Measurements IVSd: 0.64 0.6-0.9/0.6-1.0 cm LVIDd: 4.12 3.9-5.3/4.2-5.9 cm LVIDd Index: 2.77 2.4-3.2/2.2-3.1 cm/m2 LVIDs: 2.57 2.0-3.6 cm LVPWd: 0.71 0.7-1.1 cm LA Diam: 2.00 2.7-3.8/3.0-4.0 cm LAIDs Index: 1.34 1.5-2.3 cm/m2 LV Mass: 97.02 67-162/88-224 g LV Mass Index: 65.11 43-95/49-115 g/m2 LVOT Diam: 2.20 3.0+(-)1.3 cm 2D Systolic Function EF 4C: 57.10 >55% EF 2C: 61.90 >55% EF BiP: 59.80 >55% Mitral Valve MV Pk E: 0.69 MV PK A: 1.03 MV Decel Time: 260.00 E/A: 0.70 E'Lateral: 6.74 E'Medial: 4.24 E/E' Med: 16.20 E/E' Lat: 10.20 PHT: 76.00 MVA PHT: 2.89 Decel Real: 2.64 Aortic Valve AoV Pk Dashawn: 1.19 AoV Mn Dashawn: 0.76 AoV VTI: 0.23 AoV Pk Grad: 6.00 Aov Mn Grad: 3.00 NOMAN Cont.VTI: 2.35 LVOT LVOT Pk Dashawn: 0.75 LVOT Mn Dashawn: 0.44 LVOT VTI: 0.14 LVOT Pk Grad: 2.00 LVOT Mn Grad: 1.00 LVOT Diam: 2.20 LVOT Area: 3.80 Diastolic Function MV Pk E: 0.69 MV Pk A: 1.03 E/A: 0.70 E'Medial: 4.24 E/E' Med: 16.20 E' Laterial: 6.74 E/E' Lat: 10.20 Right Ventricle TAPSE (mm): 20.40 TVS' Dashawn: 11.30 Tricuspid Valve TR Pk Dashawn: 2.57 TR Pk Grad: 26.00 RA Press: 3.00 RVSP: 29.00 Great Vessels Aorta Sinus of Valsalva: 3.05 2.0-3.5 cm Ao Asc: 2.80 2.1-3.4 cm Updated in Other Vendor System with Status of Final Jairo Kan MD electronically signed on 02/25/2025 3:32:47 PM with status of Final
--- NOTE | 2025-02-23 08:01 | CA_ITS ---
Acquisition Time: 2025-02-23 09:25:33 Total Exercise Time: 00:05:00 Test Indications: Abnormal ECG PVC'S Medications: SEE H&P Protocol: SELMA Max HR: 151 BPM 99% of Pred: 152 BPM Max BP: 142/78 mmHG Max Work Load: 7.0 METS Exercise stress test with exercise 5 mins of Selma Protocol, achieving 98% MPHR, with reports of mild SOB, no chest pain, with frequent PVCs and rare vent couplets, with normotenisve response to exercise. Without any EKG changes meeting criteris for ischemia. In recovery, pt's breathing returned to basleine. Test reviewed with Dr. Kan. Referred By: Jairo Kan Electronically Signed By: Royer Patel
--- NOTE | 2025-02-23 13:57 | HM_ITS ---
Conclusion: 1. Patient was monitored for total period of 3 days 2. Baseline was normal sinus rhythm with average heart of 64 beats per minute 3. Rare PACs and PVCs noted without significant pauses 4. No patient reported events MTDD
== END ==
LOC: HO.CARD 07:55
PROVIDERS: Visit Provider Internal Medicine
DX: I49.3 Ventricular premature depolarization (principal); I51.7 Cardiomegaly; R07.2 Precordial pain
CPT/HCPCS: 93017; 93242; 93306

== ENCOUNTER → 2025-02-23 08:01 | Outpatient (BNV) | payer MEDICARE, SELFPAY | DX: I51.7 Cardiomegaly (principal); I51.89 Other ill-defined heart diseases | CPT/HCPCS: 93016; 93018; 93320; 93325; 93350 ==

== ENCOUNTER 2025-03-11 13:28 | Outpatient (AMB) | payer MEDICARE, SELFPAY ==
--- OUTSIDE RECORDS SUMMARY | 2025-03-11 13:38 | XMS_ITS | Patient Health Record ---
Author Organization [facility] Address [address] [facility] [address] [place] [phone] Care Team Providers Care Media Relations Intern Name Role Phone Jalen Padron MD Primary Care Provider Ruddy Mckeon Jr, Leon Unavailable [phone] Allergies Allergen (clinical drug ingredient) Drug/Non Drug [...] W/U Status Risk Notes Problem Pruritus ani (51462407) Pruritus ani (698.0) Active confirmed Problem Colon cancer screening (V76.51) Active confirmed Encounters Encounter Location Date Provider Diagnosis [facility] [address] [place] [phone] 12/24/2024 Leon Mckeon Jr Plan Of Treatment Future Test Test Name Order Date COLONOSCOPY 05/08/2013 Next Appt Details Provider Name:Leon barriga Jr, 04/21/2025 10:00:00 AM, [address] [place] [address], Suite [facility], [place], [address], Insurance Providers Payer Name Payer Address Payer Phone Subscriber Number Group Number Insured Name Patient Relationship to Insured Coverage Start Date Coverage End Date MEDICARE OF [place] [address] [place] [address] [id number] MAAME CAMPBELL Self - patient is the insured Medical (General) History Medical History History ICD Code nephrolithiasis Denies [place],DM,CVA,Lung disease,renal dise ase Surgical History Surgery Date(Month/Year) jaw surgery lithotripsy
--- OUTSIDE RECORDS SUMMARY | 2025-03-11 13:38 | XMS_ITS | Clinical Summary ---
Author Organization [facility] Address [address] [place] [address] Phone Care Team Providers Care Industrial Engineering Analyst Name Role Phone Marek Sullivan MD Primary [...] currently active code status orders. Care Teams Industrial Engineering Analyst Relationship Specialty Start Date End Date Marek Sullivan MD [address] [place] [address] Dr Mohamud Peters [place] PCP - General Internal Medicine 07/18/24
--- NOTE | 2025-03-11 13:52 | A.OFFVIS_ITS ---
Vital Signs 03/11/25 13:54 Height 5 ft 2.6 in Weight 111 lb 15.917 oz BMI 20.1 BP 110/72 Blood Pressure Location Lt brachial Position Sitting Pulse 63 Pulse Source Pulse Oximeter Intake Visit Reasons: f/up ett/ echo/ holter HS Intake Note: f/up- ett/echo/holter Repairer Handtools Required: No Accompanied by: Self / Same As Patient Allergies Sulfa (Sulfonamide Antibiotics) (SULFA (SULFONAMIDE ANTIBIOTICS)) Allergy (Intermediate, Verified 01/01/25 14:34) RASH codeine (CODEINE) Adverse Reaction (Mild, Verified 01/01/25 14:34) Vomiting Medication List - Last Reconciled 03/11/25 by Royer Patel NP albuterol sulfate 90 mcg/actuation 2 inhalations inhalation Q4-6H PRN magnesium 200 mg PO DAILY PRN multivitamin 1 tab PO DAILY potassium chloride ER 10 mEq PO DAILY PRN HPI Comments Details: This is a 69-year-old male patient coming in for a follow-up visit accompanied by his . Patient was previously seen in the office for question of cardiomegaly at 1 of admissions at [facility] last year. Since then, patient had electrolyte imbalances for which he is currently on potassium and magnesium supplement. Patient subsequently underwent a stress test, echo and Holter study. Today, patient is here to discuss these and is continuing to deny any cardiac symptoms of exertional chest pain, shortness of breath, palpitations, dizziness, orthopnea, PND, leg edema from a presyncope or syncope. Patient's main complaint is not being able to sleep at night however, notes that patient is on screen until late at night. [facility] Surgical History History of hernia surgery Social History Housing: House Alcohol intake: never Patient Tobacco Use Status: Former Tobacco user Tobacco use type: Cigarette Years Smoked: started age 19, 1PPD, quit June 2024 e-Cigarette/Vaping Use: Never Used Second Hand Smoke Exposure: Yes service: No Current occupational status: retired Cognitive needs: No Hearing needs: No Vision needs: Yes (Glasses) Review of Systems Const Denies chills, Denies fatigue, Denies fever(s), Denies frequent falls, Denies weakness, Denies weight gain and Denies weight loss ENT Denies dizziness Card Denies chest pain, Denies leg edema, Denies lightheadedness, Denies pa lpitations, Denies dyspnea and Denies dyspnea on exertion Resp Denies cough, Denies dyspnea and Denies dyspnea on exertion GI Denies hematochezia Musc Denies abnormal gait, Denies muscle weakness, Denies numbness, Denies radiating pain into limb and Denies tingling Neuro Denies abnormal gait, Denies dizziness, Denies frequent falls, Denies numbness, Denies tingling and Denies weakness Endo Denies fatigue and Denies palpitations Physical Exam Vital Signs: Last Vital Signs Pulse 63 03/11/25 13:54 BP 110/72 03/11/25 13:54 BMI result Body Mass Index 20.1 Const General: cooperative, healthy appearing, comfortable and no acute distress Orientation/consciousness: patient oriented x3 HEENT Head: Yes normal to inspection Neck Neck: Yes normal visual inspection, Yes trachea midline and Yes supple Chest Chest palpation & inspection: normal inspection of the chest Resp Effort & Inspection: normal respiratory effort Auscultation: clear to auscultation bilaterally, no crackles, no rales, no rhonchi and no wheezes Cardio Jugular venous distension: no JVD Palpation: normal PMI Rate: regular rate Rhythm: regular rhythm Heart sounds: S1 normal heart sound present, S2 normal heart sound present, no click, no gallops, no murmurs and no rubs Peripheral pulses: Peripheral pulses 2+ throughout GI Inspection: Yes normal to inspection Palpation (GI): Soft to palpation Auscultation: normal bowel sounds Skin General skin exam: no rashes or lesions noted Neuro General: patient oriented x3 Extrem General: Yes normal to inspection, No no pedal edema and No calf tenderness Psych Appearance: grossly normal Mental Status: mental status grossly normal Speech and movement: Normal speech and movement present Assessment & Plan Assessment & Plan (1) PVC (premature ventricular contraction): Code(s): I49.3 - Ventricular premature depolarization Category: Medical (2) Cardiomegaly: Code(s): I51.7 - Cardiomegaly Category: Medical Plan 02/23/2025-echo study showed a normal LV systolic function with an ejection fraction at 60%, with no wall motion abnormalities or valvular pathology. 02/23/2025-patient underwent a regular treadmill with a moderate workload without any chest pain or EKG changes. Clinically stable and euvolemic. Given above findings, no further testing needed at this point. Blood pressure within normal limits. Holter studies pending at this time. We will plan to follow up with results over the phone once received. Advised heart healthy diet, regular exercise, proper sleep hygiene, and management of vascular risk factors. Follow up on an as-needed basis unless Holter is abnormal. In the interim, patient will call the office with any concerns or change in symptoms. This note was generated using voice recognition software. While every effort has been made to ensure accuracy and proper field underwriter, there may be occasional errors that could affect the content or meaning of the described symptoms. Coding Level of Care Code Est Pt Level 3 (68150) Complex EM visit Add On G2211 Diagnoses PVC (premature ventricular contraction) I49.3 Cardiomegaly I51.7 Time Spent (min) 29 Comment Time spent in reviewing the chart, test results, assessment, counseling and documentation.
[2025-03-11 13:54] VITALS: BP 110/72; PULSE 63; BMI 20.1
== END 2025-03-11 14:14 | disposition home or self-care (01) ==
LOC: HO.HCS 13:28
DX: I49.3 Ventricular premature depolarization (principal); I51.7 Cardiomegaly
CPT/HCPCS: 99213; G2211

== ENCOUNTER → 2025-03-11 13:28 | Outpatient (BNVA) | payer MEDICARE, SELFPAY | DX: I49.3 Ventricular premature depolarization (principal); I51.7 Cardiomegaly | CPT/HCPCS: 99212 ==

== ENCOUNTER 2025-04-08 07:13 | Outpatient (REF) | payer MEDICARE, SELFPAY ==
--- OUTSIDE RECORDS SUMMARY | 2024-12-24 09:35 | XMS_ITS ---
Author Organization [facility] Address [address] [place] [address] Care Team Providers Care Multi Disciplined Language Analyst Name Role Phone Vito DA SILVA, Jalen Primary Care Provider Leon Trotter Jr [phone] REASON FOR VISIT Patient presents today for a colon screening Encounters Encounter Location Date Provider Diagnosis [facility] [address] [place] [address] 12/24/2024 Leon Mckeon Jr Plan Of Treatment Next Appt Details Provider Name:Leon barriga Jr, 04/21/2025 10:00:00 AM, [address], [address], [place], [address], Progress Notes * DAVIS CAMPBELLOB:1955 ( 69 yo M)Acc No.[id number]:12/24/2024 Progress Notes Patient: MAAME LARIOS Provider: Carmen Mckeon MD :1955 A ge:69 Y S ex:Male Date:12/24/2024 Address:[address] [place] Pcp:Jalen Padron MD Subjective: * Chief Complaints: * 1 . Patient presents today for a colon screening. * Medical History: Objective: * Vitals: Assessment: Plan: * Treatment: * * The named appointment provid er may or may not be the originator of this progress note, and it is not deemed complete until electronically signed by the appointment provider. Sign off status: Pending * Provider: Carmen Mckeon MD Date: 0 12/24/2024 Generated for Ирина macario/Dru/Liliamitting on: 0 04/08/2025 07:16 AM EDT
--- OUTSIDE RECORDS SUMMARY | 2025-04-08 07:16 | XMS_ITS | Patient Health Record ---
Author Organization [facility] Address [address] [facility] [address] [place] [address] Care Team Providers Care Decontamination Worker Name Role Phone Jalen Padron MD Primary Care Provider Ruddy Mckeon Jr, Leon Unavailable [phone] Allergies Allergen (clinical drug ingredient) Drug/Non Drug [...] W/U Status Risk Notes Problem Pruritus ani (71223352) Pruritus ani (698.0) Active confirmed Problem Colon cancer screening (462040423) Colon cancer screening (V76.51) Active confirmed Encounters Encounter Location Date Provider Diagnosis [facility] [address] [place] [address] 12/24/2024 Leon Mckeon Jr Plan Of Treatment Future Test Test Name Order Date COLONOSCOPY 05/08/2013 Next Appt Details Provider Name:Leon barriga Jr, 04/21/2025 10:00:00 AM, [address] [place] [address], [address], [place], [address], Insurance Providers Payer Name Payer Address Payer Phone Subscriber Number Group Number Insured Name Patient Relationship to Insured Coverage Start Date Coverage End Date MEDICARE OF [place] [address] [place] [id number] MAAME CAMPBELL Self - patient is the insured Medical (General) History Medical History History ICD Code nephrolithiasis Denies [place],DM,CVA,Lung disease,renal dise ase Surgical History Surgery Date(Month/Year) jaw surgery lithotripsy
--- OUTSIDE RECORDS SUMMARY | 2025-04-08 07:17 | XMS_ITS | Clinical Summary ---
Author Organization [facility] Address [address] [place] [address] Phone Care Team Providers Care Metal Framer Name Role Phone Marek Sullivan MD Primary [...] 1975 Zoster Vaccines (1 of 2) 2006 Abdominal Aortic Aneurysm (AAA) Screen 07/18/2024 Cholesterol Screening (Lipid Panel) 07/18/2024 Colorectal Cancer Screening: Colonoscopy 07/18/2024 Hepatitis C Screening 07/18/2024 Medicare Annual Wellness Visit 07/18/2024 Social Influencers of Health Screening 07/18/2024 Depression Screening 07/22/2024 COVID-19 Vaccine ( season) 2025 06/08/2022, 06/09/2021, 10/20/2020, Additional history exists Influenza Vaccine (#1) 2025 , 06/09/2021, 06/11/2017 [...] currently active code status orders. Care Teams Metal Framer Relationship Specialty Start Date End Date Marek Sullivan MD [address] [place] [address] Dr Mohamud Peters [place] PCP - General Internal Medicine 07/18/24
[2025-04-08 07:23] LABS: MANUAL DIFF FLAG NO
[2025-04-08 07:41] LABS: Hematocrit 46.8 % (42.0-52.0); Hemoglobin 15.7 g/dl (14.0-18.0); Imm Gran Abs Auto 0.03 X10*3/uL (0.00-0.03); Imm Gran Pct Auto 0.3 % (0.0-0.4); Lymphocytes Absolute Auto 3.1 X10*3/uL (1.2-4.9); Mean Corpuscular HGB Conc 33.5 g/dl (31.0-36.0); Mean Corpuscular Hemoglobin 31.3 pg (27.0-33.0); Mean Corpuscular Volume 93.4 fL (80.0-98.0); NRBC Abs Auto 0.000 X10*3/uL (0.0-0.012); NRBC Pct Auto 0.0 /100WBC (0.0-0.2); Platelet Count 242 X10*3/uL (160-400); Red Blood Count 5.01 X10*6/uL (4.60-5.80); White Blood Count 10.1 X10*3/uL (4.8-10.8)
[2025-04-08 09:04] LABS: Appearance Urine Clear; Glucose Urine UA Negative (Negative); PH 8.5 (5.0-9.0); Specific Gravity - Urine 1.015 (1.005-1.025)
[2025-04-08 09:10] LABS: Alanine Aminotransferase 17 U/L (0-40); Albumin Level 4.9 g/dL (3.5-5.0); Alkaline Phosphatase 60 U/L (39-117); Anion Gap 12 (12-20); Aspartate Amino Transferase 28 U/L (5-37); Blood Urea Nitrogen 10 mg/dL (9-16); Calcium 9.4 mg/dL (8.4-10.2); Carbon Dioxide 30 mmol/L (22-29); Chloride 104 mmol/L (96-108); Cholesterol 186 mg/dL (<200); Estimated Glomerular Filt Rate > 60; HDL Cholesterol 51 mg/dL (>40); Magnesium 2.3 mg/dL (1.6-2.6); Potassium 4.7 mmol/L (3.3-5.1); Sodium 141 mmol/L (135-145); Total Protein 7.2 g/dL (6.5-8.0); Triglycerides 108 mg/dL (<150)
== END 2025-04-08 07:14 | disposition home or self-care (01) ==
LOC: HO.LAB 07:13
DX: R79.0 Abnormal level of blood mineral (principal); I49.9 Cardiac arrhythmia, unspecified; E78.00 Pure hypercholesterolemia, unspecified; E55.9 Vitamin D deficiency, unspecified
CPT/HCPCS: 36415; 80053; 80061; 81003; 82306; 83735; 84443; 85025

== ENCOUNTER 2025-04-14 15:23 | Outpatient (AMB) | payer MEDICARE, SELFPAY ==
--- OUTSIDE RECORDS SUMMARY | 2024-12-24 09:35 | XMS_ITS ---
Author Organization [facility] Address [address] [place] [address] Care Team Providers Care Cable Placer Name Role Phone Vito DA SILVA, Jalen Primary Care Provider Leon Trotter Jr [phone] REASON FOR VISIT Patient presents today for a colon screening Encounters Encounter Location Date Provider Diagnosis [facility] [address] [place] [address] 12/24/2024 Leon Mckeon Jr Plan Of Treatment Next Appt Details Provider Name:Leon barriga Jr, 04/21/2025 10:00:00 AM, [address], [address], [place], [address], Progress Notes * DAVIS CAMPBELLOB:1955 ( 69 yo M)Acc No.[id number]:12/24/2024 Progress Notes Patient: MAAME LARIOS Provider: Carmen Mckeon MD :1955 A ge:69 Y S ex:Male Date:12/24/2024 Address:[address] [place] Pcp:Jalen Padron MD Subjective: * Chief Complaints: [...] 12/24/2024 Generated for Ирина macario/Dru/Liliamitting on: 0 04/14/2025 05:48 PM EDT
[2025-04-14 15:25] VITALS: BP 126/60; PULSE 67; RESP 18; TEMP 36.2; O2SAT 97; BMI 20.3
--- NOTE | 2025-04-14 15:25 | A.OFFPC_ITS ---
Vital Signs 04/14/25 15:25 Height 5 ft 2.6 in Weight 113 lb 2 oz BMI 20.3 BP 126/60 Blood Pressure Location Lt brachial Position Sitting Respiration 18 Pulse 67 Pulse Source Pulse Oximeter Temp 97.1 F Temp Source Temporal Artery Scan Pulse Oximetry (%) 97 Oxygen Delivery Method Room Air Intake Visit Reasons: HLD/vit D deficiency Weather Strip Installer Required: No Accompanied by: Self / Same As Patient Allergies Sulfa (Sulfonamide Antibiotics) (SULFA (SULFONAMIDE ANTIBIOTICS)) Allergy (Intermediate, Verified 04/14/25 15:55) RASH codeine (CODEINE) Adverse Reaction (Mild, Verified 04/14/25 15:55) Vomiting Medication List - Last Reconciled 04/14/25 by EL Ramos albuterol sulfate 90 mcg/actuation 2 inhalations inhalation Q4-6H PRN magnesium 200 mg PO DAILY PRN multivitamin 1 tab PO DAILY potassium chloride ER 10 mEq PO DAILY PRN Tobacco use date assessed: 04/14/25 Fall risk assessment: No Falls in past year Last assessed Fall Risk: 04/14/25 Dental Screening Dental Screen Date: 04/14/25 Did you have a dental visit in the last 12 months?: No Did you have a dental problem in the last 6 months where you did not have access to dental care?: No Was dental information given to patient?: No HPI HLD/vit D deficiency HPI Details The patient is a 69-year-old male presenting with a follow-up visit to review lab results and discuss health maintenance strategies. The patient has a history of hyperlipidemia, with previous total cholesterol levels at 226 mg/dL, which have now decreased to 186 mg/dL. The LDL cholesterol, previously at 135 mg/dL, has reduced to 114 mg/dL, indicating an improvement in lipid profile. The patient also exhibits vitamin D deficiency, with levels previously at 26 ng/mL, now increased to 29 ng/mL. The patient is not currently taking a vitamin D supplement but uses a multivitamin containing vitamin D. The patient has been advised to increase outdoor activities to enhance sunlight exposure, which may aid in improving vitamin D levels. He has been encouraged to engage in more physical activities, such as walking, to improve overall health and energy levels. [facility] Surgical History History of hernia surgery Social History Housing: House Alcohol intake: never Patient Tobacco Use Status: Former Tobacco user Tobacco use type: Cigarette Years Smoked: started age 19, 1PPD, quit June 2024 e-Cigarette/Vaping Use: Never Used Second Hand Smoke Exposure: Yes service: No Current occupational status: retired Cognitive needs: No Hearing needs: No Vision needs: Yes (Glasses) Questionnaire Thrive Questionnaire Date Thrive assessed: 08/16/24 I am a: Patient What is your living situation today?: I have a steady place to live Within the past 12 months, did the food you bought not last and you didn't have the money to get more?: Often true Within the past 12 months, did you worry whether your food would run out before you got money to buy more?: Often true Do you have trouble paying for medicines?: No Do you have trouble getting transportation to medical appointments?: No Do you have trouble paying your heating and electricity bill?: No Do you have trouble taking care of your child, family member or friend?: No Do you have trouble with day-to-day activities such as bathing, preparing meals, shopping, managing finances, etc.?: No Are you currently unemployed and looking for a job?: No Are you interested in more education?: No Please select the resources that you would like help with: None Currently or been in a relationship where the following occur: I choose not to answer THRIVE Score: 2 MATEO-7 AMB Questionnaire MATEO-7 Date MATEO - 7 assessed: 09/01/24 Source: Developed by Drs. Floyd Wan, Marichuy Dee, Bhavin Roca and colleagues, with an educational irene from [employer]. Review of Systems Const Denies body aches, Denies chills, Denies fever(s), Denies headache(s) and Denies poor appetite Eyes Reports no additional complaints ENT Denies dysphagia, Denies dizziness, Denies headache(s) and Denies odynophagia Card Denies chest pain, Denies syncope, Denies edema, Denies irregular heart rhythm, Denies lightheadedness and Denies dyspnea Resp Denies cough and Denies dyspnea GI Denies abdominal pain, Denies constipation, Denies dysphagia, Denies diarrhea, Denies nausea, Denies odynophagia and Denies vomiting Reports no additional complaints Musc Reports no additional complaints and Denies abnormal gait Skin/Breast Reports system reviewed and no additional complaints, except as documented Neuro Denies abnormal gait, Denies dizziness, Denies syncope and Denies headache(s) Psych Reports no additional complaints Physical exam (Primary Care) Vital Signs: Last Vital Signs Temp 97.1 F 04/14/25 15:25 Pulse 67 04/14/25 15:25 Resp 18 04/14/25 15:25 BP 126/60 04/14/25 15:25 Pulse Ox 97 04/14/25 15:25 Oxygen Delivery Method Room Air 04/14/25 15:25 BMI result Body Mass Index 20.3 Tobacco/Smoking Status: Tobacco use Status Tobacco use date assessed 04/14/25 04/14/25 15:31 Patient Tobacco Use Status Former Tobacco user 04/14/25 15:31 Tobacco use type Cigarette 04/14/25 15:31 e-Cigarette/Vaping Use Never Used 04/14/25 15:31 Thrive Assessment: Date of Thrive Assessment Date Thrive assessed 08/16/24 04/14/25 15:31 Currently or been in a relationship where the following occur: I choose not to answer Const General: cooperative, healthy appearing, comfortable and no acute distress Orientation/consciousness: patient oriented x3 HENMT Head: Yes normocephalic Ears: hearing grossly normal bilaterally General nose exam: Normal external nose present Eyes General: appearance normal, both eyes and all related structures Conjunctivae: conjunctivae normal Neck Neck: Yes full ROM and Yes no lymphadenopathy Resp Effort & Inspection: normal respiratory effort Auscultation: clear to auscultation bilaterally, no crackles, no rales, no rhonchi and no wheezes Cardio Rate: regular rate Rhythm: regular rhythm Skin General skin exam: no rashes or lesions noted Neuro General: patient oriented x3 Gait exam (Neuro): Normal gait present Extrem General: Yes normal to inspection, Yes full ROM and No edema Psych Affect: normal affect Attitude: cooperative Insight: Good insight present (Psych) Judgement: Good judgement present (Psych) Results Reviewed Results Reviewed: Laboratory Tests 04/08/25 04/08/25 07:20 07:23 WBC 10.1 RBC 5.01 Hgb 15.7 Hct 46.8 MCV 93.4 MCH 31.3 MCHC 33.5 RDW 13.4 Plt Count 242 MPV 9.9 Immature Gran % (Auto) 0.3 Neut % (Auto) 58.4 Lymph % (Auto) 30.3 [place] % (Auto) 8.2 Eos % (Auto) 2.4 Baso % (Auto) 0.4 Sodium 141 Potassium 4.7 D Chloride 104 Carbon Dioxide 30 H Anion Gap 12 BUN 10 Creatinine 0.83 Estimated GFR > 60 Fasting Glucose 87 Calcium 9.4 Magnesium 2.3 Total Bilirubin 0.5 AST 28 ALT 17 Alkaline Phosphatase 60 Total Protein 7.2 Albumin 4.9 Triglycerides 108 Cholesterol 186 LDL Cholesterol, Calc 114 H HDL Cholesterol 51 25-OH Vitamin D Total 29.0 L TSH 2.58 Urine Color Yellow Urine Appearance Clear Urine pH 8.5 Ur Specific [place] 1.015 Urine Protein Negative Urine Glucose (UA) Negative Urine Ketones Negative Urine Blood Negative Urine Nitrite Negative Ur Leukocyte Esterase Negative Coding Level of Care Code Est Pt Level 3 (19911) Diagnoses Pure hypercholesterolemia E78.00 Vitamin D deficiency E55.9 Low magnesium level R79.0 Hypokalemia E87.6 Chronic obstructive pulmonary disease, unspecified COPD type J44.9 COPD type: unspecified COPD Time Spent (min) 33 Assessment & Plan Assessment & Plan (1) Pure hypercholesterolemia: Code(s): E78.00 - Pure hypercholesterolemia, unspecified Category: Medical Plan: The patient's lipid profile shows improvement with a reduction in total cholesterol from 226 mg/dL to 186 mg/dL and LDL cholesterol from 135 mg/dL to 114 mg/dL. The plan includes continuing dietary modifications to further reduce cholesterol levels and scheduling a follow-up in six months to reassess lipid levels. (2) Vitamin D deficiency: Code(s): E55.9 - Vitamin D deficiency, unspecified Category: Medical Plan: The patient's vitamin D level has increased from 26 ng/mL to 29 ng/mL. The patient is advised to take a vitamin D3 supplement of 1000 IU daily to further improve levels, especially during the winter months when sunlight exposure is limited. Increased outdoor activity is also recommended to enhance natural vitamin D synthesis. (3) Low magnesium level: Code(s): R79.0 - Abnormal level of blood mineral Category: Medical Plan: Magnesium level is wnl (4) Hypokalemia: Code(s): E87.6 - Hypokalemia Category: Medical Plan: levels have been normalized on his last two blood labs (5) COPD (chronic obstructive pulmonary disease): Code(s): J44.9 - Chronic obstructive pulmonary disease, unspecified Category: Medical Qualifiers: COPD type: unspecified COPD Qualified Code(s): J44.9 - Chronic obstructive pulmonary disease, unspecified Plan: The patient has a 50 pack year history. Recent cancer screening showed normal chest CT and pulmonary function tests shows moderate COPD. The patient remains asymptomatic. He has not on a daily inhaler and has not used rescue inhaler. Follow up with pulmonology as scheduled Plan Patient to follow up in 6 months Orders: Orders Lipid Panel 6 Months E55.9 - Vitamin D deficiency, unspecified, E78.00 - Pure hypercholesterolemia, unspecified Vitamin D 25-OH Total 6 Months E55.9 - Vitamin D deficiency, unspecified, E78.00 - Pure hypercholesterolemia, unspecified
--- OUTSIDE RECORDS SUMMARY | 2025-04-14 17:49 | XMS_ITS | Patient Health Record ---
Author Organization [facility] Address [address] [place] [address] Care Team Providers Care Abstract Manager Name Role Phone Jalen Padron MD Primary [...] W/U Status Risk Notes Problem Pruritus ani (21801157) Pruritus ani (698.0) Active confirmed Problem Colon cancer screening (098345688) Colon cancer screening (V76.51) Active confirmed Encounters Encounter Location Date Provider Diagnosis [facility] [address] [place] [address] 12/24/2024 Leon Mckeon Jr Plan Of Treatment Future Test Test Name Order Date COLONOSCOPY 05/08/2013 Next Appt Details Provider Name:Leon barriga Jr, 04/21/2025 10:00:00 AM, [address] [place] [address], [address], [place], [address], Insurance Providers Payer Name Payer Address Payer Phone Subscriber Number Group Number Insured Name Patient Relationship to Insured Coverage Start Date Coverage End Date MEDICARE OF [place] [address] [place] [id number] MAAME CAMPBELL Self - patient is the insured Medical (General) History Medical History History ICD Code nephrolithiasis Denies UT,DM,CVA,Lung disease,renal dise ase Surgical History Surgery Date(Month/Year) jaw surgery lithotripsy
--- OUTSIDE RECORDS SUMMARY | 2025-04-14 17:49 | XMS_ITS | Clinical Summary ---
Author Organization [facility] Address [address] [place] [address] Phone Care Team Providers Care Traffic Court Magistrate Name Role Phone Marek Sullivan MD Primary [...] currently active code status orders. Care Teams Traffic Court Magistrate Relationship Specialty Start Date End Date Marek Sullivan MD [address] [place] [address] Dr Mohamud Peters [place] PCP - General Internal Medicine 07/18/24
== END 2025-04-14 16:17 | disposition home or self-care (01) ==
LOC: HO.HMCH 15:24
DX: E78.00 Pure hypercholesterolemia, unspecified (principal); E55.9 Vitamin D deficiency, unspecified; J44.9 Chronic obstructive pulmonary disease, unspecified; R79.0 Abnormal level of blood mineral; E87.6 Hypokalemia

== ENCOUNTER → 2025-04-14 15:23 | Outpatient (BNVA) | payer MEDICARE, SELFPAY | DX: R79.0 Abnormal level of blood mineral (principal); E55.9 Vitamin D deficiency, unspecified; E78.00 Pure hypercholesterolemia, unspecified; E87.6 Hypokalemia; J44.9 Chronic obstructive pulmonary disease, unspecified | CPT/HCPCS: 99212 ==

== ENCOUNTER 2025-05-04 11:33 | Day surgery (SDC) | payer MEDICARE, SELFPAY ==
--- OUTSIDE RECORDS SUMMARY | 2025-04-21 13:12 | XMS_ITS | Clinical Summary ---
Author Organization [facility] Address [address] [place] [address] Phone Care Team Providers Care Water Quality Control Engineer Name Role Phone Marek Sullivan MD Primary [...] Safety Answer Date Record ed Physical Abuse Unrecognized value 07/19/2024 Verbal Abuse Unrecognized value 07/19/2024 Sex and Gender Information Value Date [...] (98 lb) 07/20/2024 3:28 PM EST per [facility] record Height 162.6 cm (5' 4 [...] currently active code status orders. Care Teams Water Quality Control Engineer Relationship Specialty Start Date End Date Marek Sullivan MD [address] [place] [address] Dr Mohamud Peters [place] PCP - General Internal Medicine 07/18/24
[2025-04-29 14:53] VITALS: BMI 19.1
[2025-05-04 11:52] VITALS: BMI 18.6
[2025-05-04 11:53] VITALS: BP 146/86; PULSE 98; RESP 16; TEMP 36.3; O2SAT 98
[2025-05-04] MEDS: Lactated Ringers 1,000 ML 100 ML IVCONT (11:55)
--- NOTE | 2025-05-04 12:09 | HO.ANESPROP2 ---
Documented by User: Danyelle Peña NP 04/30/25 08:40 HPI - Anesthesia Eval Consult details Narrative: 69yo M for Colonoscopy 02/2025 cardiac [place] [facility] [place] ekg and ?cardio megaly. Nml echo, stress, holter. PRN f/u only PMFSH Active Problems Active Problems: All Active Problems PVC (premature ventricular contraction) (Acute) Hypokalemia (Acute) Low magnesium level (Acute) Personal history of nicotine dependence (Acute) Positive colorectal cancer screening using Cologuard test (Acute) Medicare annual wellness visit, initial (Acute) Encounter for colorectal cancer screening (Acute) Vitamin D deficiency (Acute) Pure hypercholesterolemia (Acute) Cough (Acute) COPD (chronic obstructive pulmonary disease) (Acute) Emphysema lung (Acute) Cardiomegaly (Acute) Irregular heart rhythm (Acute) Annual physical exam (Acute) Past Medical History Medical History (Updated 04/29/25 @ 14:42 by Cherry Hurtado RN) Nephrolithiasis Surgical History Surgical History (Updated 04/29/25 @ 14:44 by Cherry Hurtado RN) History of bilateral inguinal herniorrhaphies Hx of lithotripsy History of jaw surgery H/O colonoscopy History of hernia surgery Social History Social History Housing: House Alcohol intake: never Patient Tobacco Use Status: Former Tobacco user Tobacco use type: Cigarette Years Smoked: started age 19, 1PPD, quit June 2024 e-Cigarette/Vaping Use: Never Used Second Hand Smoke Exposure: Yes Use of substances other than those prescribed or required for medical reasons: Yes Advance Directives: No Advance Directives Information Provided: Yes service: No Current occupational status: retired Cognitive needs: No Hearing needs: No Vision needs: Yes (Glasses) Meds Allergies Allergy/AdvReac Type Severity Reaction Status Date / Time Sulfa (Sulfonamide Allergy Intermediate RASH Verified 04/14/25 15:55 Antibiotics) (SULFA (SULFONAMIDE ANTIBIOTICS)) codeine (CODEINE) AdvReac Mild Vomiting Verified 04/14/25 15:55 Home Medications ?Medication ?Instructions ?Recorded ?Confirmed ?Last Taken ?Type multivitamin 1 tab PO DAILY 12/28/24 04/29/25 Unknown History cholecalciferol (vitamin D3) 25 25 mcg PO DAILY 04/29/25 04/29/25 Unknown History mcg (1,000 unit) tablet (Vitamin D3) Exam Height,Weight and Vital Signs: Height 5 ft 4 in Weight 50.349 kg Pertinent Lab Results Pertinent Lab Results: Laboratory Tests 04/08/25 07:23 WBC 10.1 Hgb 15.7 Hct 46.8 Plt Count 242 Sodium 141 Potassium 4.7 D Chloride 104 Carbon Dioxide 30 H Anion Gap 12 BUN 10 Creatinine 0.83 Calcium 9.4 Magnesium 2.3 Narrative Narrative: EKG 12/2024 Details: EKG with underlying sinus rhythm at 61/Min; cannot exclude old anterior infarct but could be very well from his body habitus/COPD; normal MS and corrected QT. Exercise Stress 02/2025 Protocol: EZEKIEL Max HR: 151 BPM 99% of Pred: 152 BPM Max BP: 142/78 mmHG Max Work Load: 7.0 METS Exercise stress test with exercise 5 mins of Ezekiel Protocol, achieving 98% MPHR, with reports of mild SOB, no chest pain, with frequent PVCs and rare vent couplets, with normotenisve response to exercise. Without any EKG changes meeting criteris for ischemia. In recovery, pt's breathing returned to basleine. Test reviewed with Dr. Kan. Holter 02/2025 1. Patient was monitored for total period of 3 days 2. Baseline was normal sinus rhythm with average heart of 64 beats per minute 3. Rare PACs and PVCs noted without significant pauses 4. No patient reported event ECHO 02/2025 Conclusions: - The left ventricular systolic function is normal. The calculated ejection fraction is 60% by biplane method. - No obvious valvular pathology seen on this study. Assessment and Plan Assessment Anesthesia Assessment: Chart Reviewed Documented by User: Jagruti Oscar DO 05/04/25 12:11 [facility] Past Medical History Medical History (Updated 04/29/25 @ 14:42 by Cherry Hurtado RN) Nephrolithiasis Family History Family history of problems with anesthesia: No Surgical History Surgical History (Updated 04/29/25 @ 14:44 by Cherry Hurtado RN) History of bilateral inguinal herniorrhaphies Hx of lithotripsy History of jaw surgery H/O colonoscopy History of hernia surgery History of Problems with Anesthesia: No Social History Social History Housing: House Alcohol intake: never Patient Tobacco Use Status: Former Tobacco user Tobacco use type: Cigarette Years Smoked: started age 19, 1PPD, quit June 2024 e-Cigarette/Vaping Use: Never Used Second Hand Smoke Exposure: Yes Use of substances other than those prescribed or required for medical reasons: Yes Advance Directives: No Advance Directives Information Provided: Yes service: No Current occupational status: retired Cognitive needs: No Hearing needs: No Vision needs: Yes (Glasses) Meds Allergies Allergy/AdvReac Type Severity Reaction Status Date / Time Sulfa (Sulfonamide Allergy Intermediate RASH Verified 04/14/25 15:55 Antibiotics) (SULFA (SULFONAMIDE ANTIBIOTICS)) codeine (CODEINE) AdvReac Mild Vomiting Verified 04/14/25 15:55 Home Medications ?Medication ?Instructions ?Recorded ?Confirmed ?Last Taken ?Type multivitamin 1 tab PO DAILY 12/28/24 04/29/25 Unknown History cholecalciferol (vitamin D3) 25 25 mcg PO DAILY 04/29/25 04/29/25 Unknown History mcg (1,000 unit) tablet (Vitamin D3) Exam Exam Date and Time: 05/04/25 1210 Height,Weight and Vital Signs: Height 5 ft 4 in Weight 50.349 kg Vital Signs Temperature 97.4 F 05/04/25 11:53 Pulse Rate 98 05/04/25 11:53 Respiratory Rate 16 05/04/25 11:53 Blood Pressure 146/86 H 05/04/25 11:53 Pulse Oximetry 98 05/04/25 11:53 Oxygen Delivery Method Room Air 05/04/25 11:53 Temperature 97.4 F 05/04/25 11:53 Pulse Rate 98 05/04/25 11:53 Respiratory Rate 16 05/04/25 11:53 Blood Pressure 146/86 H 05/04/25 11:53 Pulse Oximetry 98 05/04/25 11:53 Oxygen Delivery Method Room Air 05/04/25 11:53 Airway Mallampati Class: I TM Dist: >3cm Neck ROM: Full Loose/Missing/Broken Teeth: Yes (multiple missing teeth) Heart: S1S2 Lungs: CTAB Assessment and Plan Assessment Anesthesia Assessment: Anesthesia Plan Discussed and Chart Reviewed Final Anesthetic Review Family History of Problems with Anesthesia: No History of Problems with Anesthesia: No NPO: Yes ASA Class: III Final Preanesthetic Review: No Changes in Pt Med Stat, Meds/Allgs Chart Reviewed, Consent Obtained/Reviewed and Anes Risks/Benef Reviewed Patient Risk: Intermediate Procedure Risk: Low Anesthetic Plan Anesthetic Plan: MAC: and Agree w/ Assess. and Plan Disposition: Standard PACU
--- NOTE | 2025-05-04 12:16 | MHC.SHP ---
Pre-Procedural Eval Section A - 24 Hr Update-Section A only Date of Service: 05/04/25 The patient is an INPATIENT: No Changes since office visit: No Cold of Flu in the past 2 weeks, No New Medical Problems, No Changes in Medication and No Patient answered all questions The patient has been examined within 24 hours of the surgical procedure. The History & Physical has been completed within 30 days and I have reviewed it.: Yes Section B - Complete if H&P > 30 days Chief Complaint: Other fecal abnormalities Allergies: Allergies Allergy/AdvReac Type Severity Reaction Status Date / Time Sulfa (Sulfonamide Allergy Intermediate RASH Verified 04/14/25 15:55 Antibiotics) (SULFA (SULFONAMIDE ANTIBIOTICS)) codeine (CODEINE) AdvReac Mild Vomiting Verified 04/14/25 15:55 Plan I have reviewed the history and physical and performed a pertinent physical examination on my patient. No changes have occurred unless specified. Time Spent With Patient Time: Total time managing care of this patient today ____ minutes.
[2025-05-04 12:55] VITALS: BP 96/53; PULSE 87; RESP 17; TEMP 36.6; O2SAT 98
[2025-05-04 13:10] VITALS: BP 103/61; PULSE 69; RESP 20; O2SAT 100
--- NOTE | 2025-05-04 13:23 | OP_ITS ---
DATE OF SERVICE: 05/04/2025 SURGEON: Leon Mckeon MD INDICATIONS: Colon cancer screening and prior history of adenomatous colon polyps. PREOPERATIVE DIAGNOSIS: POSTOPERATIVE DIAGNOSIS: PROCEDURE PERFORMED: Colonoscopy to the terminal ileum with snare polypectomy and biopsy. ESTIMATED BLOOD LOSS: COMPLICATIONS: ANESTHESIA: Monitored anesthesia care. ASSISTANTS: SPECIMENS: DESCRIPTION OF PROCEDURE: A history and physical was performed. The risks and benefits of the procedure were explained to the patient, and informed consent was obtained. The patient was placed in the left lateral decubitus position. A digital rectal exam was performed and was found to be normal. The Olympus pediatric video colonoscope was introduced into the rectum and advanced to the cecum. The cecum was identified by transillumination, palpation, and identification of ileocecal valve. Examination was performed. The scope was removed. He tolerated the procedure well and was returned to the recovery area in stable condition. FINDINGS: The terminal ileum was examined and appeared normal. The visualized colonic mucosa was within normal limits without evidence of masses or ulcers. Multiple polyps were identified and removed. These were located in the right colon 55 cm, 45 cm, and 35 cm. The largest at 55 cm measured approximately 10 mm and was morselized after initial resection. Hot snare cautery and biopsy forceps were used in polypectomies. There was moderate sigmoid diverticulosis. Retroflexed examination showed moderate-sized internal hemorrhoids. IMPRESSION: Colon polyps. RECOMMENDATION: Follow up the biopsy results. MD FABBY Doss/MANUELL / [id number] MTDD
[2025-05-04 13:25] VITALS: BP 123/71; PULSE 73; RESP 18; TEMP 36.1; O2SAT 100
== END 2025-05-04 13:42 | disposition home or self-care (01) ==
PROVIDERS: Visit Provider Internal Medicine Gastroenterology
PROC: 0DJD8ZZ Inspection of Lower Intestinal Tract, Via Natural or Artificial Opening Endoscopic (ICD-10-PCS; CPT 45378; principal; 2025-05-04 13:00)
DX: Z12.11 Encounter for screening for malignant neoplasm of colon (principal); R19.5 Other fecal abnormalities; Z86.0101 Personal history of adenomatous and serrated colon polyps; K64.8 Other hemorrhoids; D12.2 Benign neoplasm of ascending colon; K63.5 Polyp of colon; K57.30 Diverticulosis of large intestine without perforation or abscess without bleeding
CPT/HCPCS: 45384; 45385; 88305; J2250; J2704